=== PATIENT | male | born 1950 | race Caucasian/White ===

== ENCOUNTER 2018-07-18 10:52 | Outpatient (CLI) | payer MEDICARE, SELFPAY ==
[2018-07-18 13:11] LABS: Calculated LDL 95; Cholesterol 155 mg/dL (50-200); HDL Cholesterol 30 mg/dL (40-60); Triglyceride 154 mg/dL (30-150)
== END 2018-07-18 11:12 ==
PROVIDERS: PCP Emergency Medicine; Visit Provider Emergency Medicine
DX: I10 Essential (primary) hypertension (principal)
CPT/HCPCS: 36415; 80061; 83721

== ENCOUNTER 2018-09-08 00:18 | Outpatient (CLI) | payer MEDICARE, SELFPAY ==
--- NOTE | 2018-09-08 07:13 | MERGEMPI_ITS ---
*[facility]* *[facility]* [address] [place] [address] Myocardial Perfusion Imaging - SPECT Regadenoson Date of study: 09/08/2018 *PATIENT PRESENTATION* Height: 177.8cm (70in) Blood Pressure: Weight: 134.1kg (295lb) BSA: 2.64m^2 Referring physician: Rubia Soto MD Ordering physician: Reji Marrero Impressions: - Abnormal study after pharmacologic stress. - Abnormal contraction consistent with cardiomyopathy. Summary: 1. Myocardial perfusion imaging: There is a small sized, severely intense, fixed defect involving the basal inferior wall(s). . There is a small sized, severely intense, fixed defect involving the apical wall(s). . Overall ischemia: minimal. 2. The calculated left ventricular ejection fraction after stress: 41%. Diffuse left ventricular regional motion abnormalities. Indication: I25.10. History: REASON FOR VISIT: PRESURGICAL SCREENING FOR EXPLORATORY KIDNEY SURGERY WITH DR RUBIA FERREIRA AT [facility] [place] [facility] [place]. PT DENIES ANY ISSUES OF CHEST PAIN OR CHEST PRESSURE. PT'S PCP IS DR. MARRERO. 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 Risk factors: ACTIVE SMOKER. 2 PACKS/DAY FOR APPROXIMATELY 40 YEARS. Current tobacco use. Hypertension. Diabetes mellitus. Obesity. Dyslipidemia. Cholesterol: 155mg/dl. HDL: 30mg/dl. LDL: 95mg/dl. Triglycerides: 154mg/dl. Peripheral vascular disease. ALLERGIES: NO KNOWN ALLERGIES. MEDICATIONS: METOPROLOL TARTRATE 50 MG BID. PRAVASTATIN 80 MG DAILY. METFORMIN 1,000 MG BID. LISINOPRIL 20 MG DAILY. ASPIRN 81 MG DAILY. COENZYME Q10-RED YEAST RICE 60 MG-600 MG CAP DAILY. GLIPIZIDE 5 MG DAILY. MAGNESIUM OXIDE DAILY. Imaging Technique: Protocol: Regadenoson. Acquisition: Gated SPECT; 1 day - rest/stress. The patient was imaged in the supine position. Attenuation correction used. Isotope administration: - Rest. Tc[99m]-sestamibi. Dose: 15.1mCi. Injection time: 08:15 AM. Injection to stress time: 00:45. - Stress. Tc[99m]-sestamibi. Dose: 46mCi. Injection time: 10:50 AM. 1-2 min before end of exercise Baseline ECG: SINUS RHYTHM. HR 63 BPM. Stress protocol: +--------+--+ + + !Stage !HR!BP (mmHg) !Comments ! +--------+--+ + + !Baseline!63!156/80 (105)! ! +--------+--+ + + !1 min !--! !Inject Regadenoson.! +--------+--+ + + * Stress results: The rate-pressure product for the peak heart rate and blood pressure was 9828mm Hg/min. Stress ECG: STRESS TEST ENDED IN 6 MINUTS & 18 SECONDS. PT HAD NO SIGNIFICANT SIDE EFFECTS FROM LEXISCAN INJECTION. NORMAL HEART RATE AND BLOOD PRESSURE RESPONSE TO EXERCISE. OCCASIONAL PVCs NO ANGINA. SLIGHT ST SEGMENTS CHANGES. T WAVE INVERTIONS NOTED IN V4, V5 & V6 NOTED AT 1 MINUTE 49 SECONDS POST LEXISCAN. Myocardial perfusion: Imaging information: gated. There is a small sized, severely intense, fixed defect involving the basal inferior wall(s). . There is a small sized, severely intense, fixed defect involving the apical wall(s). . Overall ischemia: minimal. Ventricular Function (Wall Motion): The calculated left ventricular ejection fraction after stress: 41%. Diffuse left ventricular regional motion abnormalities. Study data: Rubia Soto MD supervised and was readily available during the procedure. This study was interpreted by [facility]. Study status: Routine. Consent: The risks, benefits, and alternatives to the procedure were explained to the patient and informed consent was obtained. Procedure: Initial setup. A baseline ECG was recorded. Surface ECG leads and manual cuff blood pressure measurements were monitored. Heart sounds: Normal. Lung sounds: Normal. Regadenoson stress test. Stress testing was performed, with regadenoson by intravenous bolus, for a total dose of 0.4mgover 10.00sec, followed by a 5ml saline flush. The infusion was terminated due to per protocol. The patient was unable to exercise due to leg, joint, or back pain. Study completion: All catheters inserted during the procedure were removed. The patient tolerated the procedure well and was discharged from the lab. Discharge: The patient left the laboratory in stable condition. Birthdate: Patient birthdate: 1950. Sex: Gender: male. Study date: Study date: 09/08/2018. Study time: 00:01 AM. Electronically signed by Rubia Soto MD 09/08/2018 14:49
[2018-09-08] MEDS: Regadenoson 0.4 MG/5 ML SYR IVP (10:26)
== END 2018-09-08 00:38 ==
PROVIDERS: PCP Emergency Medicine; Visit Provider Emergency Medicine
DX: I25.10 Atherosclerotic heart disease of native coronary artery without angina pectoris (principal); R94.30 Abnormal result of cardiovascular function study, unspecified; I10 Essential (primary) hypertension; I42.9 Cardiomyopathy, unspecified; E78.5 Hyperlipidemia, unspecified; E11.9 Type 2 diabetes mellitus without complications; F17.200 Nicotine dependence, unspecified, uncomplicated; Z01.818 Encounter for other preprocedural examination
CPT/HCPCS: 78452; 93016; 93018; 93017; J2785

== ENCOUNTER 2018-09-23 09:22 | Outpatient (REF) | payer MEDICARE, SELFPAY | END 2018-09-23 09:42 | LOC: LBN 09:22 | PROVIDERS: PCP Emergency Medicine; Visit Provider Urology | DX: N20.0 Calculus of kidney (principal) | CPT/HCPCS: 87086 ==

== ENCOUNTER 2019-07-27 02:15 | Outpatient (CLI) | payer MEDICARE, SELFPAY ==
[2019-07-27 09:25] LABS: Abs Immature Grans 0.03 k/cumm (0.0-0.09); Absolute Basophil Count 0.03 k/cumm (0.0-0.2); Absolute Lymphocyte Count 2.31 k/cumm (1.2-3.4); Absolute Monocyte Count 0.82 k/cumm (0.11-0.7); Absolute Neutrophil Count 6.88 k/cumm (1.2-6.7); Basophils % 0.3; Eosinophils % 2.9; HCT 44.4 % (40.0-50.0); HGB 15.1 g/dL (13.5-17.5); Immature Grans % 0.3 %; Lymphocytes % 22.3; Mean Corpuscular Hemoglobin 32.1 pg (27.0-33.0); Mean Corpuscular Volume 94.3 fL (80-95); Mean Platelet Volume 9.3 fL (8.0-11.0); Monocytes % 7.9; Neutrophils % 66.3; Platelet Count 264 x1000/uL (130-400); RBC 4.71 m/cumm (4.50-6.00); RBC Distribution Width 14.3 % (11.8-14.1); White Blood Cell Count 10.37 k/cumm (4.4-10.8)
[2019-07-27 09:28] LABS: Hemoglobin A1C 6.6 % (3.8-5.6)
[2019-07-27 09:54] LABS: Anion Gap 10.7 mmol/L (3-11); BUN 17 mg/dL (7-18); CO2 25.3 mmol/L (21.0-32.0); CREATININE 1.06 mg/dL (0.70-1.30); Calcium 9.4 mg/dL (8.5-10.1); Chloride 103 mmol/L (98-107); Glucose 130 mg/dL (74-106); Potassium 4.5 mmol/L (3.5-5.1); Sodium 139 mmol/L (136-145)
== END 2019-07-27 02:35 ==
PROVIDERS: PCP Emergency Medicine; Visit Provider Emergency Medicine
DX: I10 Essential (primary) hypertension (principal); E11.9 Type 2 diabetes mellitus without complications; R60.0 Localized edema; L97.529 Non-pressure chronic ulcer of other part of left foot with unspecified severity
CPT/HCPCS: 36415; 80048; 99201; 83036; 85025

== ENCOUNTER → 2019-08-03 09:55 | Outpatient (BNVA) | payer MEDICARE, SELFPAY | PROVIDERS: PCP Emergency Medicine; Referring Provider Emergency Medicine; Visit Provider Surgery | DX: Z51.89 Encounter for other specified aftercare (principal); L97.529 Non-pressure chronic ulcer of other part of left foot with unspecified severity; F17.210 Nicotine dependence, cigarettes, uncomplicated | CPT/HCPCS: 99212 ==

== ENCOUNTER 2019-10-07 14:46 | Outpatient (REF) | payer MEDICARE, SELFPAY ==
[2019-10-07 21:49] LABS: Bilirubin Negative (Negative); Blood Large (Negative); Glucose Negative (Negative); Ketones Trace mg/dL (Negative); Leukocyte Esterase Negative (Negative); Nitrite Negative (Negative); Specific Gravity >= 1.030 (1.005-1.025); Urobilinogen 0.2 EU/dL (Up TO 0.2); pH 5.5 (5-8)
[2019-10-07 21:53] LABS: Clarity Sl Cloudy (Clear)
[2019-10-07 21:56] LABS: C & S Indicated? Yes; RBC >50 HPF (0-2)
== END 2019-10-07 15:06 ==
LOC: LBN 14:46
PROVIDERS: PCP Emergency Medicine; Visit Provider Emergency Medicine
DX: R31.9 Hematuria, unspecified (principal)
CPT/HCPCS: 81003; 81015; 87086

== ENCOUNTER 2019-10-08 02:28 | Outpatient (CLI) | payer MEDICARE, SELFPAY ==
--- NOTE | 2019-10-08 07:00 | DI.CT_ITS ---
EXAM: CT ABDOMEN PELVIS WO/W CLINICAL HISTORY: kidney stone, n20.0 TECHNIQUE: COMPARISON: No exams were available for comparison FINDINGS: CT examination of the abdomen and pelvis was performed utilizing CT urogram protocol. Images obtaine d through the lung bases are unremarkable. Note is made of prior left SI joint fixation with metalli c fixation screw in place. There is fixation apparatus also present pubic symphysis fixating pelvic fracture. There are severe degenerative changes of lumbar spine. Visualized portions of the liver and spleen are unremarkable. Pancreas appears normal. There is cho lelithiasis. There is no biliary dilatation. The appendix appears to have been previously removed. No evidence of bowel obstruction or diverticulitis. Small fat containing umbilical hernia noted. Apparent soft tissue edema or scarring in left inguinal region, please correlate with prior procedures. Abdominal aorta has a heavily calcified wall. 32 millimeter in diameter infrarenal abdominal aortic aneurysm noted. 32 millimeter in diameter left common iliac artery aneurysm. [address] right common iliac artery. There is no significant abdominal or pelvic adenopathy. Left adrenal appears normal. There is a right adrenal mass measuring 45 millimeters in diameter. Th is mass is of approximately -10 Hounsfield units average attenuation on precontrast examination, cons istent with benign adrenal adenoma. There are multiple bilateral nonobstructing renal calculi. There is a calculus in the proximal left ureter measuring 20 x 14 millimeters in diameter with a resultant high-grade ureteral obstruction wit h severe left hydronephrosis. No additional ureteral calcification seen. Urinary bladder grossly unremarkable. IMPRESSION: Multiple bilateral nonobstructing renal calculi. Obstructing 20 x 14 millimeter in diameter left UPJ/proximal ureteral stone with severe left hydronep hrosis. Right adrenal mass with attenuation measurements consistent with benign adrenal adenoma. 32 millimeter in diameter abdominal aortic aneurysm, 32 millimeter in diameter left common iliac kishan ry aneurysm, 28 millimeter in diameter right common iliac artery aneurysm. RADIATION DOSE DELIVERED: 4,333.69mGy.cm Total DLP
[2019-10-08 10:31] LABS: CREATININE 0.96 mg/dL (0.70-1.30)
[2019-10-08] MEDS: Omnipaque 350 MG/ML 100 ML BTL IJ (11:12)
== END 2019-10-08 02:48 ==
PROVIDERS: PCP Emergency Medicine; Visit Provider Emergency Medicine
DX: N13.2 Hydronephrosis with renal and ureteral calculous obstruction (principal); I71.4 Abdominal aortic aneurysm, without rupture; E27.8 Other specified disorders of adrenal gland
CPT/HCPCS: 74178; 82565; J3490

== ENCOUNTER 2019-11-09 12:48 | Outpatient (REF) | payer MEDICARE, SELFPAY ==
[2019-11-09 13:42] LABS: Abs Immature Grans 0.03 10^3/uL (0.0-0.06); Absolute Basophil Count 0.05 10^3/uL (0.0-0.2); Absolute Eosinophil Count 0.27 10^3/uL (0.0-0.7); Absolute Lymphocyte Count 1.74 10^3/uL (1.2-3.4); Absolute Monocyte Count 0.58 10^3/uL (0.1-0.8); Absolute Neutrophil Count 6.56 10^3/uL (1.2-6.7); Basophils % 0.5; Eosinophils % 2.9; HCT 33.1 % (40.0-50.0); HGB 10.9 g/dL (13.5-17.5); Immature Grans % 0.3; Lymphocytes % 18.9; MCH 30.8 pg (27.0-33.0); MCHC 32.9 % (32.0-36.0); MCV 93.5 fL (80-95); MPV 9.4 fL (8.0-11.0); Monocytes % 6.3; Neutrophils % 71.1; Nucleated RBC 0 %; Platelet Count 291 10^3/uL (130-400); RBC 3.54 10^6/uL (4.36-5.78); RDW 14.6 % (11.8-14.1); RDW-SD 50.1 fL; WBC 9.23 10^3/uL (4.4-10.8)
[2019-11-09 13:51] LABS: ALT 34 U/L (16-63); AST 22 U/L (15-37); Albumin 2.9 g/dL (3.4-5.0); Alkaline Phosphatase 67 U/L (46-116); Anion Gap 8.6 mmol/L (3-11); BUN 14 mg/dL (7-18); Bilirubin, Total 0.4 mg/dL (0.2-1.0); CO2 25.4 mmol/L (21.0-32.0); CREATININE 0.95 mg/dL (0.70-1.30); Calcium 8.6 mg/dL (8.5-10.1); Chloride 106 mmol/L (98-107); Glucose 167 mg/dL (74-106); Potassium 3.9 mmol/L (3.5-5.1); Sodium 140 mmol/L (136-145)
[2019-11-10 18:48] LABS: C-Reactive Protein 0.86 mg/dL (0.0-0.3)
== END 2019-11-09 13:08 ==
LOC: LBN 12:48
PROVIDERS: Internal Medicine Infectious Disease; PCP Emergency Medicine; Visit Provider Emergency Medicine
DX: M86.172 Other acute osteomyelitis, left ankle and foot (principal); A49.01 Methicillin susceptible Staphylococcus aureus infection, unspecified site; B95.2 Enterococcus as the cause of diseases classified elsewhere; A49.8 Other bacterial infections of unspecified site; R79.82 Elevated C-reactive protein (CRP)
CPT/HCPCS: 80053; 85025; 86140

== ENCOUNTER 2019-11-12 10:45 | Outpatient (REF) | payer MEDICARE, SELFPAY ==
[2019-11-12 13:22] LABS: Vancomycin, Trough 12.6 ug/mL (10.0-20.0)
== END 2019-11-12 11:05 ==
LOC: LBN 10:45
PROVIDERS: PCP Emergency Medicine; Visit Provider Emergency Medicine
DX: Z79.2 Long term (current) use of antibiotics (principal); M86.172 Other acute osteomyelitis, left ankle and foot
CPT/HCPCS: 80202

== ENCOUNTER 2019-11-16 12:56 | Outpatient (REF) | payer MEDICARE, SELFPAY ==
[2019-11-16 13:26] LABS: Abs Immature Grans 0.04 10^3/uL (0.0-0.06); Absolute Basophil Count 0.05 10^3/uL (0.0-0.2); Absolute Eosinophil Count 0.25 10^3/uL (0.0-0.7); Absolute Lymphocyte Count 1.67 10^3/uL (1.2-3.4); Absolute Monocyte Count 0.74 10^3/uL (0.1-0.8); Absolute Neutrophil Count 7.55 10^3/uL (1.2-6.7); Basophils % 0.5; Eosinophils % 2.4; HCT 35.9 % (40.0-50.0); HGB 11.8 g/dL (13.5-17.5); Immature Grans % 0.4; Lymphocytes % 16.2; MCH 30.3 pg (27.0-33.0); MCHC 32.9 % (32.0-36.0); MCV 92.3 fL (80-95); MPV 9.4 fL (8.0-11.0); Monocytes % 7.2; Neutrophils % 73.3; Nucleated RBC 0 %; Platelet Count 328 10^3/uL (130-400); RBC 3.89 10^6/uL (4.36-5.78); RDW 15.2 % (11.8-14.1); RDW-SD 50.9 fL
[2019-11-16 13:38] LABS: ALT 29 U/L (16-63); AST 16 U/L (15-37); Albumin 3.2 g/dL (3.4-5.0); Alkaline Phosphatase 63 U/L (46-116); Anion Gap 10.2 mmol/L (3-11); BUN 12 mg/dL (7-18); Bilirubin, Total 0.6 mg/dL (0.2-1.0); C-Reactive Protein 0.34 mg/dL (0.0-0.3); CO2 24.8 mmol/L (21.0-32.0); CREATININE 0.81 mg/dL (0.70-1.30); Calcium 8.9 mg/dL (8.5-10.1); Chloride 107 mmol/L (98-107); Glucose 70 mg/dL (74-106); Potassium 3.9 mmol/L (3.5-5.1); Sodium 142 mmol/L (136-145); Total Protein 6.4 g/dL (6.4-8.2)
[2019-11-16 13:56] LABS: Vancomycin, Trough 13.3 ug/mL (10.0-20.0)
== END 2019-11-16 13:16 ==
LOC: LBN 12:56
PROVIDERS: PCP Emergency Medicine; Visit Provider Student in an Organized Health Care Education/Training Program
DX: M86.172 Other acute osteomyelitis, left ankle and foot (principal); Z79.2 Long term (current) use of antibiotics
CPT/HCPCS: 80053; 80202; 85025; 86140

== ENCOUNTER 2019-11-23 12:42 | Outpatient (REF) | payer MEDICARE, SELFPAY ==
[2019-11-23 13:25] LABS: Abs Immature Grans 0.03 10^3/uL (0.0-0.06); Absolute Basophil Count 0.08 10^3/uL (0.0-0.2); Absolute Eosinophil Count 0.19 10^3/uL (0.0-0.7); Absolute Lymphocyte Count 1.57 10^3/uL (1.2-3.4); Absolute Monocyte Count 0.71 10^3/uL (0.1-0.8); Basophils % 0.7; Eosinophils % 1.8; HCT 34.8 % (40.0-50.0); HGB 11.4 g/dL (13.5-17.5); Immature Grans % 0.3; Lymphocytes % 14.7; MCH 30.2 pg (27.0-33.0); MCHC 32.8 % (32.0-36.0); MCV 92.1 fL (80-95); MPV 9.7 fL (8.0-11.0); Monocytes % 6.6; Neutrophils % 75.9; Nucleated RBC 0 %; Platelet Count 310 10^3/uL (130-400); RBC 3.78 10^6/uL (4.36-5.78); RDW 15.6 % (11.8-14.1); RDW-SD 52.3 fL; WBC 10.68 10^3/uL (4.4-10.8)
[2019-11-23 13:51] LABS: ALT 31 U/L (16-63); AST 13 U/L (15-37); Albumin 3.3 g/dL (3.4-5.0); Alkaline Phosphatase 67 U/L (46-116); Anion Gap 11.4 mmol/L (3-11); BUN 12 mg/dL (7-18); Bilirubin, Total 0.8 mg/dL (0.2-1.0); CO2 24.6 mmol/L (21.0-32.0); CREATININE 0.82 mg/dL (0.70-1.30); Calcium 8.7 mg/dL (8.5-10.1); Chloride 107 mmol/L (98-107); Glucose 87 mg/dL (74-106); Sodium 143 mmol/L (136-145); Total Protein 6.4 g/dL (6.4-8.2); Vancomycin, Trough 13.3 ug/mL (10.0-20.0)
[2019-11-23 13:59] LABS: C-Reactive Protein 0.76 mg/dL (0.0-0.3)
== END 2019-11-23 13:02 ==
LOC: LBN 12:42
PROVIDERS: PCP Emergency Medicine; Visit Provider Emergency Medicine
DX: M86.172 Other acute osteomyelitis, left ankle and foot (principal); Z79.2 Long term (current) use of antibiotics
CPT/HCPCS: 80053; 80202; 85025; 86140

== ENCOUNTER 2019-11-30 10:03 | Outpatient (REF) | payer MEDICARE, SELFPAY ==
[2019-11-30 13:01] LABS: Abs Immature Grans 0.03 10^3/uL (0.0-0.06); Absolute Basophil Count 0.05 10^3/uL (0.0-0.2); Absolute Eosinophil Count 0.19 10^3/uL (0.0-0.7); Absolute Lymphocyte Count 1.02 10^3/uL (1.2-3.4); Absolute Monocyte Count 0.71 10^3/uL (0.1-0.8); Absolute Neutrophil Count 8.14 10^3/uL (1.2-6.7); Basophils % 0.5; Eosinophils % 1.9; HCT 34.5 % (40.0-50.0); HGB 11.1 g/dL (13.5-17.5); Immature Grans % 0.3; Lymphocytes % 10.1; MCH 30.2 pg (27.0-33.0); MCHC 32.2 % (32.0-36.0); MPV 9.9 fL (8.0-11.0); Neutrophils % 80.2; Nucleated RBC 0 %; Platelet Count 290 10^3/uL (130-400); RBC 3.67 10^6/uL (4.36-5.78); RDW 15.5 % (11.8-14.1); WBC 10.14 10^3/uL (4.4-10.8)
[2019-11-30 13:52] LABS: ALT 31 U/L (16-63); AST 17 U/L (15-37); Albumin 3.2 g/dL (3.4-5.0); Alkaline Phosphatase 66 U/L (46-116); Anion Gap 7.9 mmol/L (3-11); BUN 14 mg/dL (7-18); Bilirubin, Total 0.9 mg/dL (0.2-1.0); CO2 26.1 mmol/L (21.0-32.0); CREATININE 0.83 mg/dL (0.70-1.30); Calcium 9.1 mg/dL (8.5-10.1); Chloride 106 mmol/L (98-107); Glucose 90 mg/dL (74-106); Potassium 3.5 mmol/L (3.5-5.1); Sodium 140 mmol/L (136-145); Total Protein 6.4 g/dL (6.4-8.2)
[2019-11-30 14:06] LABS: Vancomycin, Trough 15.5 ug/mL (10.0-20.0)
== END 2019-11-30 10:23 ==
LOC: LBN 10:03
PROVIDERS: PCP Emergency Medicine; Visit Provider Emergency Medicine
DX: M86.172 Other acute osteomyelitis, left ankle and foot (principal); Z79.2 Long term (current) use of antibiotics; Z51.81 Encounter for therapeutic drug level monitoring
CPT/HCPCS: 80053; 80202; 85025; 86140

== ENCOUNTER 2019-12-02 14:29 | Emergency (ER) | payer MEDICARE, SELFPAY ==
--- NOTE | 2019-12-02 14:30 | RT.EKG_ITS ---
APPROVED REPORT Exam: Resting ECG Patient Location: E HR:69 bpm ECG Measurements Heart Rate 69 AXIS IL 181 P 40 QRSd 113 QRS 56 QT 416 T 213 QTc 445 Conclusion Sinus rhythm...normal P axis, V-rate 60- 99 Nonspecific repol abnormality, diffuse leads...ST dep, T flat/neg, ant/lat/inf
[2019-12-02 14:43] VITALS: TEMP 36.7
--- NOTE | 2019-12-02 14:45 | DI.CT_ITS ---
EXAM: CT CHEST PE CTA CLINICAL HISTORY: SOB, Recent Surgery. TECHNIQUE: Imaging Protocol: Axial CT angiography was performed with multi-slice acquisition and mu lti-planar and/or 3D reconstructions. CONTRAST MATERIAL: Intravenous: Omnipaque 350 Contrast volume:88 cc COMPARISON: CT CT ABDOMEN PELVIS WO/W from 10/08/2019 FINDINGS: Pulmonary Arteries: No evidence of filling defect to suggest pulmonary emboli. Tracheobronchial tree: Patent where visualized. Mediastinum and Dayan: No dominant adenopathy or fluid collection. Pulmonary parenchyma: No consolidation or dominant measurable mass. Expiratory changes. Mild edema i n the lung bases. Pleura: Small bilateral pleural effusions and mild adjacent basilar atelectasis. no pneumothorax. Heart: Dilated left atrium and left ventricle. Moderate coronary artery calcifications are seen. Tra ce pericardial effusion Aorta: Thoracic aorta non-dilated. Mild atherosclerotic changes. Upper abdomen: Stable right adrenal adenoma. Left renal cysts. Bones: Normal. Tubes, Catheters, and Lines: PICC line. The tip appears to be in the SVC on the vertical punch operator image. IMPRESSION: No evidence of pulmonary embolism. Bilateral pleural effusions, mild adjacent atelectasis. Mild basi lar pulmonary edema. RADIATION DOSE DELIVERED: 666.76mGy.cm Total DLP DATA REPOSITORY: All CT scans at this facility are submitted to the National Radiology Data Registry (NRDR) Dose Index Registry (DIR) with the [employer] (ACR). RADIATION OPTIMIZATION: All CT scans at this facility use at least one of these dose optimization te chniques: automated exposure control; mA and/or kV adjustment per patient size (includes targeted exa ms where dose is matched to clinical indication); or iterative reconstruction.
--- NOTE | 2019-12-02 14:58 | W.ED.GENAD ---
Discharge Plan Disposition Patient Disposition: HOME Condition: Improving Discharge Details Clinical Impression: Congestive heart failure Primary Care Provider: Reji Marrero ED Provider: Kim Garvey Home Meds and New Rx's Prescriptions: New furosemide [Lasix] 20 mg tablet 20 mg PO DAILY Qty: 5 RF: 0 potassium chloride 20 mEq tablet extended release 20 meq PO DAILY Qty: 5 RF: 0 Continued Complex B-100 Tablet Extended Release 1 tab PO DAILY RF: 0 Ultra CoQ10 75 mg capsule 75 mg PO DAILY RF: 0 aspirin [Adult Aspirin Regimen] 81 mg tablet,delayed release (DR/EC) 81 mg PO DAILY Qty: 90 RF: 3 glipizide [Glucotrol XL] 5 mg tablet extended release 24hr 5 mg PO DAILY Qty: 90 RF: 4 Hold Instructions: due to low FBS's metformin [Glucophage] 1,000 mg tablet 1,000 mg PO BID Qty: 180 RF: 4 metoprolol tartrate 50 mg tablet 50 mg PO BID Qty: 180 RF: 4 Myrbetriq 50 mg tablet extended release 24 hr 50 mg PO DAILY Qty: 90 RF: 3 (DME) blood sugar diagnostic Strip 1 ea Miscellaneous DAILY Qty: 90 RF: 3 Eliquis 5 mg tablet 5 mg PO BID Qty: 180 RF: 3 atorvastatin 80 mg tablet 80 mg PO QHS Qty: 90 RF: 3 lisinopril 40 mg tablet 40 mg PO DAILY Qty: 90 RF: 4 piperacillin-tazobactam 40.5 gram recon soln 40.5 g IV TID RF: 0 vancomycin 10 gram recon soln 10 g IV BID RF: 0 Discharge Instructions Instructions: Pulmonary Edema (ED) Additional Instructions: take lasix and potassium daily as directed return sooner for new or worsening symptoms follow up with Dr Marrero for further outpatient testing Referrals: Reji Marrero, DO [Primary Care Provider] - (call in am for appointment) Discharge Data Discharge Date/Time-TO BE ENTERED AT DEPARTURE: 12/02/19 17:00 Medical Decision Making <Seda Wilson - Last Filed: 12/03/19 08:09> 69-year-old male presents to the ED with chief complaint of shortness of breath. He reports that he had an episode of increased shortness of breath on Saturday which has what he reports has since resolved. Patient recently had a femoral bypass graft and toe amputation. He does have a PICC line noted to his right upper extremity which is infusing piperacillin. Patient is also on vancomycin status post surgery. She was sent here to rule out pulmonary embolism by Dr. Singh. He does have a history of obstructive sleep apnea, obesity, diabetes, AAA without rupture, he is a daily smoker. He denies fever, cough or any other symptoms denies any chest pain. At this time cardiac work-up ordered, chest CT PE protocol ordered to rule out pulmonary embolus. Verified with radiology that they can use the PICC line. Care is to be handed off to oncoming provider Kim Garvey [employer] case and details discussed with her she verbalizes understanding. Discussed elevated BNP level and pending CT chest rule out PE. At the time this dictation patient was hemodynamically stable. This text was generated using [employer] system, please disregard any oddities of phrase or misspellings. <Kim Garvey [employer] - Last Filed: 12/02/19 22:30> patient signed out by Marvin Harrison APRN , awaiting CT for PE and labs. patient referred by pcp to r/o PE. review of labs show BNP 3000, no previous value for comparison, echo from 2019 reviewed with no evidence of LV dysfunction. troponin negative with no c/o chest pain. given 40 mg of po lasix and 40 meq po potassium while in ED. will be sent home with 5 day prescription for 20 mg lasix and 20 meq potassium. will defer further work up and testing to pcp including echo at patient request. he requests to leave department prior to CT results. I will call him if positive for PE, otherwise will get results from PCP. CT shows 1. bilateral small to moderate pleural effusions and adjacent atelectasis 2. 3 mm nodule in the anterior segment of the right upper lobe (4/4) 3. Patchy infiltrate in the right base for patient at low risk no routine follow-up indicated for patients at high risk consider optional CT chest at 12 months 4. Right PICC line catheter ends in the right subclavian vein Medical Records Medical records reviewed: Yes I reviewed the patient's medical records. Medical records narrative: TTE from 09/2018 shows EF 59%, with probable normal LV function MPI shows 2 fixed perfusion defects likely representing scar in LV apex and basal inferior wall, with LVEF 40% Lab Data Lab results reviewed: Yes I reviewed the patient's lab results. Lab results narrative: Laboratory Results - last 24 hr 12/02/19 12/02/19 12/02/19 15:15 15:15 15:15 WBC 10.21 RBC 3.68 L Hgb 11.0 L Hct 34.6 L MCV 94.0 MCH 29.9 MCHC 31.8 L RDW 15.3 H Plt Count 278 MPV 9.1 Immature Gran % 0.2 Neutrophils % 71.3 Lymphocytes % 16.3 Monocytes % 9.1 Eosinophils % 2.4 Basophils % 0.7 Nucleated RBC % 0 Absolute Neutrophils 7.29 H Absolute Lymphocytes 1.66 Absolute Monocytes 0.93 H Absolute Eosinophils 0.24 Absolute Basophils 0.07 Sodium 141 Potassium 3.6 Chloride 107 Carbon Dioxide 27.9 Anion Gap 6.1 BUN 17 Creatinine 0.91 Estimated GFR/1.73 m2 >= 60.00 Glucose 91 Calcium 9.0 Magnesium 2.0 Total Bilirubin 0.8 AST 17 ALT 33 Alkaline Phosphatase 74 Troponin I 0.06 NT-Pro-B Natriuret Pep 3154 H Total Protein 6.7 Albumin 3.2 L 12/02/19 17:57 WBC RBC Hgb Hct MCV MCH MCHC RDW Plt Count MPV Immature Gran % Neutrophils % Lymphocytes % Monocytes % Eosinophils % Basophils % Nucleated RBC % Absolute Neutrophils Absolute Lymphocytes Absolute Monocytes Absolute Eosinophils Absolute Basophils Sodium Potassium Chloride Carbon Dioxide Anion Gap BUN Creatinine Estimated GFR/1.73 m2 Glucose Calcium Magnesium Total Bilirubin AST ALT Alkaline Phosphatase Troponin I Cancelled NT-Pro-B Natriuret Pep Total Protein Albumin <CODIE Vo - Last Filed: 12/04/19 16:13> Name was entered in error, I was not working on this day nor did I partake in their care. HPI <Seda Wilson - Last Filed: 12/03/19 08:09> General Mode of arrival: wheelchair. Date/Time Provider Initiated Documentation: 12/02/19 14:32. Limitations to Documentation: no limitations. Information obtained by: patient. HPI Narrative: 69-year-old male presents to the ED with chief complaint of shortness of breath. He reports that he had an episode of increased shortness of breath on Saturday which has what he reports has since resolved. Patient recently had a femoral bypass graft and toe amputation. He does have a PICC line noted to his right upper extremity which is infusing piperacillin. Patient is also on vancomycin status post surgery. She was sent here to rule out pulmonary embolism by Dr. Singh. He does have a history of obstructive sleep apnea, obesity, diabetes, AAA without rupture, he is a daily smoker. He denies fever, cough or any other symptoms denies any chest pain. Related Data Home Medications Medication Instructions Recorded Confirmed vitamin B complex 1 tab PO DAILY 09/02/18 12/02/19 aspirin 81 mg tablet,delayed 81 mg PO DAILY #90 tab 10/21/18 12/02/19 release glipizide 5 mg tablet, extended 5 mg PO DAILY #90 tab-cap 02/12/19 12/02/19 release 24 hr metformin 1,000 mg tablet 1,000 mg PO BID #180 tab-cap 02/12/19 12/02/19 metoprolol tartrate 50 mg tablet 50 mg PO BID #180 tab-cap 02/12/19 12/02/19 mirabegron 50 mg tablet,extended 50 mg PO DAILY #90 tab 06/17/19 12/02/19 release 24 hr blood sugar diagnostic #90 strip 08/28/19 10/20/19 apixaban 5 mg tablet 5 mg PO BID #180 tab 10/06/19 12/02/19 atorvastatin 80 mg tablet 80 mg PO QHS #90 tab 10/07/19 12/02/19 coenzyme Q10 75 mg capsule 75 mg PO DAILY 10/07/19 12/02/19 lisinopril 40 mg tablet 40 mg PO DAILY #90 tab-cap 11/25/19 12/02/19 furosemide [Lasix] 20 mg PO DAILY #5 tab 12/02/19 piperacillin-tazobactam 40.5 g IV TID 12/02/19 12/02/19 potassium chloride 20 meq PO DAILY #5 tab 12/02/19 vancomycin 10 g IV BID 12/02/19 12/02/19 Previous Rx's Medication Instructions Recorded aspirin 81 mg tablet,delayed 81 mg PO DAILY #90 tab 10/21/18 release glipizide 5 mg tablet, extended 5 mg PO DAILY #90 tab-cap 02/12/19 release 24 hr metformin 1,000 mg tablet 1,000 mg PO BID #180 tab-cap 02/12/19 metoprolol tartrate 50 mg tablet 50 mg PO BID #180 tab-cap 02/12/19 mirabegron 50 mg tablet,extended 50 mg PO DAILY #90 tab 06/17/19 release 24 hr blood sugar diagnostic #90 strip 08/28/19 apixaban 5 mg tablet 5 mg PO BID #180 tab 10/06/19 atorvastatin 80 mg tablet 80 mg PO QHS #90 tab 10/07/19 lisinopril 40 mg tablet 40 mg PO DAILY #90 tab-cap 11/25/19 furosemide [Lasix] 20 mg PO DAILY #5 tab 12/02/19 potassium chloride 20 meq PO DAILY #5 tab 12/02/19 Allergies Allergy/AdvReac Type Severity Reaction Status Date / Time No Known Allergies Allergy Verified 12/02/19 14:52 General Stated Complaint: SOB KENNEDI: 3 Review of Systems <Seda Wilson - Last Filed: 12/03/19 08:09> Narrative: Constitutional: Negative for weight loss, alert and oriented, well groomed, obese body habitus, appears comfortable. Has a PICC line in place to his right upper inner forearm. HEENT: Denies trauma, headaches, blurry vision, nasal discharge, sore throat, trouble swallowing. Chest: Denies chest pain, palpitations, irregular rhythm, hypertension. Respiratory: Denies cough, hemoptysis. Positive shortness of breath worse on Saturday since resolved. GI: Denies abdominal pain, nausea, vomiting, diarrhea, constipation. : Denies dysuria, hematuria, flank pain, rectal bleeding. Neuro: Denies dizziness, blurry vision, weakness, syncope, headache or facial numbness. Hematologic: Denies easy bruising, intolerance to heat or cold, hair loss. [facility] <Seda Wilson - Last Filed: 12/03/19 08:09> Medical History Calculus of kidney Foot ulcer Foot ulcer, left Peripheral vascular disease Pre-op evaluation Surgical History EGD - MAC (10/28/13) Hx of endarterectomy Left iliofemoral with bypass. August 2019 [facility] Social History Smoking/Tobacco Use Status: Current every day Alcohol Intake: former Drug use: Daily Substance use type: does not use, former substance user and marijuana Do you feel safe at home: Yes Exam <Seda Wilson - Last Filed: 12/03/19 08:09> Narrative Exam Narrative: Constitutional: Alert and oriented x3. Appears stated age. obese body habitus. Head: Normocephalic, no trauma. Eyes: Pupils PERRLA, Red reflex noted, EOM's intact. Eyelids symmetrical without lesions, discharge, or swelling. ENT: Bilateral TM's WNL, External ear normal to inspection, no mastoid TTP, swelling, or erythema, Nasal turbinates WNL, no nasal discharge. Normal dentition, Posterior pharynx WNL, no exudate. Chest: RRR, Normal S1, S2, distal pulses intact. Resp: Lungs clear to auscultation bilaterally, no wheezes, rales, or rhonchi. Musculoskeletal: Unable to assess gait, has a aria wrap and post of ortho shoe noted to Left lower extremity. Skin: No suspicious rashes or lesions. Capillary refill less than 2 sec. PICC line noted with antibiotic infusing to his right upper arm. Neurologic: Cranial nerves II-XII intact. Alert and oriented x 3. DTR's intact. Hematologic/Lymphatic: No ecchymosis, no lymphadenopathy. Course <Seda Wilson - Last Filed: 12/03/19 08:09> Vital Signs Vital signs: Vital Signs Temperature 36.7 C 12/02/19 14:43 Temperature 36.7 C 12/02/19 14:43 Respiratory Effort Non-Labored 12/02/19 14:48 Pain Level 0 12/02/19 14:43 Sign Out <Seda Wilson - Last Filed: 12/03/19 08:09> Sign Out Data: Sign Out Comment: Pending CT chest and Disposition. Needs diuretic for BNP elevation. Last updated by Seda Wilson at 12/02/19 16:07
[2019-12-02 15:24] LABS: Abs Immature Grans 0.02 10^3/uL (0.0-0.06); Absolute Basophil Count 0.07 10^3/uL (0.0-0.2); Absolute Eosinophil Count 0.24 10^3/uL (0.0-0.7); Absolute Lymphocyte Count 1.66 10^3/uL (1.2-3.4); Absolute Monocyte Count 0.93 10^3/uL (0.1-0.8); Absolute Neutrophil Count 7.29 10^3/uL (1.2-6.7); Basophils % 0.7; Eosinophils % 2.4; HCT 34.6 % (40.0-50.0); Immature Grans % 0.2; Lymphocytes % 16.3; MCH 29.9 pg (27.0-33.0); MCHC 31.8 % (32.0-36.0); MPV 9.1 fL (8.0-11.0); Monocytes % 9.1; Neutrophils % 71.3; Nucleated RBC 0 %; Platelet Count 278 10^3/uL (130-400); RBC 3.68 10^6/uL (4.36-5.78); RDW 15.3 % (11.8-14.1); RDW-SD 52.9 fL; WBC 10.21 10^3/uL (4.4-10.8)
[2019-12-02 15:40] VITALS: RESP 16
[2019-12-02 15:41] LABS: ALT 33 U/L (16-63); AST 17 U/L (15-37); Albumin 3.2 g/dL (3.4-5.0); Alkaline Phosphatase 74 U/L (46-116); Anion Gap 6.1 mmol/L (3-11); BUN 17 mg/dL (7-18); Bilirubin, Total 0.8 mg/dL (0.2-1.0); CO2 27.9 mmol/L (21.0-32.0); CREATININE 0.91 mg/dL (0.70-1.30); Chloride 107 mmol/L (98-107); Glucose 91 mg/dL (74-106); Potassium 3.6 mmol/L (3.5-5.1); Sodium 141 mmol/L (136-145); Total Protein 6.7 g/dL (6.4-8.2); Troponin I 0.06 ng/mL (<0.06)
[2019-12-02 15:44] LABS: NT-proBNP 3154 pg/mL (<300)
[2019-12-02] MEDS: Furosemide 40 MG TAB PO (16:47)
[2019-12-02] MEDS: Potassium Chloride 20 MEQ TABCR 40 MEQ PO (16:47)
--- NOTE | 2019-12-02 16:58 | DI.VRAD_ITS ---
PROCEDURE INFORMATION: Exam: CT Angiography Chest With Contrast Exam date and time: 12/02/2019 2:59 PM Age: 69 years old Clinical indication: Other: SOB, recent surgery TECHNIQUE: Imaging protocol: Computed tomographic angiography of the chest with intravenous contrast. 3D rendering (Not supervised by radiologist): MIP and/or 3D reconstructed images were created by the technologist. Contrast material: OMNIPAQUE 350; Contrast volume: 88 ml; Contrast route: INTRAVENOUS (IV); COMPARISON: CR CHEST 2 VIEWS PA,LAT 08/09/2017 12:25 PM FINDINGS: Tubes, catheters and devices: Right PICC line catheter ends in the right subclavian vein. Pulmonary arteries: Normal. No pulmonary emboli. Aorta: Aortic and coronary atherosclerosis. Lungs: 3 mm nodule in the anterior segment of the right upper lobe (4/4). Patchy infiltrate in the right base. Pleural space: Bilateral small to moderate pleural effusions and adjacent atelectasis. Heart: Unremarkable. No cardiomegaly. No pericardial effusion. Lymph nodes: Unremarkable. No enlarged lymph nodes. Adrenals: Right adrenal lipid rich adenoma measures 4 cm. Kidneys and ureters: Partially viewed left renal cyst measures 7.5 cm. Bones/joints: Degenerative changes in the spine. Soft tissues: Unremarkable. IMPRESSION: 1. Bilateral small to moderate pleural effusions and adjacent atelectasis. 2. 3 mm nodule in the anterior segment of the right upper lobe (4/4). 3. Patchy infiltrate in the right base.For patients at low risk (minimal or absent history of smoking and of other known risk factors), no routine follow-up is indicated. For patients at high risk (history of smoking or of other known risk factors), consider optional CT Chest at 12 months. (Reference: Leticia) 4. Right PICC line catheter ends in the right subclavian vein. REFERENCES: Leticia Rodriguez, et al. Guidelines for Management of Incidental Pulmonary Nodules Detected on CT Images: From the Fleischner Society 2017. Radiology. 2017;284(1):228-243. Dictated and Authenticated by: Delfino Qureshi MD. Ordering:CYRUS Stack MD
[2019-12-02] MEDS: Normal Saline Flush 10 ML SYR IVP ×2 (17:06→17:20)
[2019-12-02] MEDS: Omnipaque 350 MG/ML 100 ML BTL IJ (17:19)
[2019-12-02] MEDS: Normal Saline - Diluent 50 ML VIAL IV (17:20)
== END 2019-12-02 17:00 | disposition home or self-care (01) ==
PROVIDERS: Registered Nurse Emergency; Emergency Provider Nurse Practitioner Acute Care; PCP Emergency Medicine
DX: I11.0 Hypertensive heart disease with heart failure (principal); I50.9 Heart failure, unspecified; R91.1 Solitary pulmonary nodule; E11.9 Type 2 diabetes mellitus without complications; Z79.84 Long term (current) use of oral hypoglycemic drugs; F17.210 Nicotine dependence, cigarettes, uncomplicated; I73.9 Peripheral vascular disease, unspecified; Z95.828 Presence of other vascular implants and grafts
CPT/HCPCS: 36592; 71275; 80053; 93005; 99285; 83735; 83880; 84484; 85025; 93010; J3490

== ENCOUNTER 2019-12-07 18:31 | Outpatient (REF) | payer MEDICARE, SELFPAY ==
[2019-12-07 13:35] LABS: Abs Immature Grans 0.03 10^3/uL (0.0-0.06); Absolute Basophil Count 0.07 10^3/uL (0.0-0.2); Absolute Eosinophil Count 0.28 10^3/uL (0.0-0.7); Absolute Lymphocyte Count 1.92 10^3/uL (1.2-3.4); Absolute Monocyte Count 0.88 10^3/uL (0.1-0.8); Absolute Neutrophil Count 8.51 10^3/uL (1.2-6.7); Basophils % 0.6; Eosinophils % 2.4; HCT 36.3 % (40.0-50.0); HGB 11.4 g/dL (13.5-17.5); Immature Grans % 0.3; Lymphocytes % 16.4; MCH 29.3 pg (27.0-33.0); MCHC 31.4 % (32.0-36.0); MCV 93.3 fL (80-95); MPV 9.6 fL (8.0-11.0); Monocytes % 7.5; Neutrophils % 72.8; Nucleated RBC 0 %; Platelet Count 338 10^3/uL (130-400); RBC 3.89 10^6/uL (4.36-5.78); RDW 15.2 % (11.8-14.1); WBC 11.69 10^3/uL (4.4-10.8)
[2019-12-07 13:46] LABS: ALT 26 U/L (16-63); AST 15 U/L (15-37); Albumin 3.4 g/dL (3.4-5.0); Alkaline Phosphatase 69 U/L (46-116); Anion Gap 6.5 mmol/L (3-11); BUN 15 mg/dL (7-18); Bilirubin, Total 0.7 mg/dL (0.2-1.0); C-Reactive Protein 0.34 mg/dL (0.0-0.3); CO2 26.5 mmol/L (21.0-32.0); CREATININE 0.94 mg/dL (0.70-1.30); Calcium 8.9 mg/dL (8.5-10.1); Chloride 106 mmol/L (98-107); Glucose 79 mg/dL (74-106); Potassium 3.9 mmol/L (3.5-5.1); Sodium 139 mmol/L (136-145); Total Protein 6.6 g/dL (6.4-8.2)
[2019-12-07 14:03] LABS: Vancomycin, Trough 14.8 ug/mL (10.0-20.0)
== END 2019-12-07 18:51 ==
LOC: LBN 18:31
PROVIDERS: PCP Emergency Medicine; Visit Provider Emergency Medicine
DX: Z79.2 Long term (current) use of antibiotics (principal); L97.522 Non-pressure chronic ulcer of other part of left foot with fat layer exposed; B95.62 Methicillin resistant Staphylococcus aureus infection as the cause of diseases classified elsewhere
CPT/HCPCS: 80053; 80202; 85025; 86140

== ENCOUNTER 2019-12-14 10:04 | Outpatient (REF) | payer MEDICARE, SELFPAY ==
[2019-12-14 10:22] LABS: Abs Immature Grans 0.05 10^3/uL (0.0-0.06); Absolute Basophil Count 0.08 10^3/uL (0.0-0.2); Absolute Eosinophil Count 0.31 10^3/uL (0.0-0.7); Absolute Lymphocyte Count 2.04 10^3/uL (1.2-3.4); Absolute Monocyte Count 0.86 10^3/uL (0.1-0.8); Absolute Neutrophil Count 6.64 10^3/uL (1.2-6.7); Basophils % 0.8; Eosinophils % 3.1; HCT 37.4 % (40.0-50.0); HGB 12.1 g/dL (13.5-17.5); Immature Grans % 0.5; Lymphocytes % 20.4; MCH 29.6 pg (27.0-33.0); MCHC 32.4 % (32.0-36.0); MCV 91.4 fL (80-95); MPV 9.7 fL (8.0-11.0); Monocytes % 8.6; Neutrophils % 66.6; Nucleated RBC 0 %; Platelet Count 341 10^3/uL (130-400); RBC 4.09 10^6/uL (4.36-5.78); RDW 15.1 % (11.8-14.1); RDW-SD 50.8 fL; WBC 9.98 10^3/uL (4.4-10.8)
[2019-12-14 10:32] LABS: Anion Gap 8.5 mmol/L (3-11); BUN 21 mg/dL (7-18); CO2 26.5 mmol/L (21.0-32.0); CREATININE 0.91 mg/dL (0.70-1.30); Calcium 8.9 mg/dL (8.5-10.1); Chloride 105 mmol/L (98-107); Glucose 100 mg/dL (74-106); Potassium 4.4 mmol/L (3.5-5.1); Sodium 140 mmol/L (136-145); Vancomycin, Trough 16.2 ug/mL (10.0-20.0)
[2019-12-14 10:40] LABS: C-Reactive Protein 0.37 mg/dL (0.0-0.3)
== END 2019-12-14 10:24 ==
LOC: LBN 10:04
PROVIDERS: PCP Emergency Medicine; Visit Provider Emergency Medicine
DX: E11.622 Type 2 diabetes mellitus with other skin ulcer (principal); L97.523 Non-pressure chronic ulcer of other part of left foot with necrosis of muscle; E11.52 Type 2 diabetes mellitus with diabetic peripheral angiopathy with gangrene; I70.213 Atherosclerosis of native arteries of extremities with intermittent claudication, bilateral legs
CPT/HCPCS: 80048; 80202; 85025; 86140

== ENCOUNTER 2019-12-16 18:46 | Outpatient (REF) | payer MEDICARE, SELFPAY ==
[2019-12-16 22:59] LABS: Anion Gap 7.8 mmol/L (3-11); BUN 23 mg/dL (7-18); CO2 30.2 mmol/L (21.0-32.0); CREATININE 0.99 mg/dL (0.70-1.30); Calcium 9.6 mg/dL (8.5-10.1); Chloride 104 mmol/L (98-107); Glucose 108 mg/dL (74-106); NT-proBNP 1090 pg/mL (<300); Sodium 142 mmol/L (136-145)
== END 2019-12-16 19:06 ==
LOC: LBN 18:46
PROVIDERS: PCP Emergency Medicine; Visit Provider Emergency Medicine
DX: I50.9 Heart failure, unspecified (principal); I11.0 Hypertensive heart disease with heart failure
CPT/HCPCS: 80048; 83880

== ENCOUNTER 2020-07-19 20:37 | Outpatient (REF) | payer MEDICARE, SELFPAY ==
[2020-07-19 21:37] LABS: Anion Gap 12.8 mmol/L (3-11); BUN 22 mg/dL (7-18); CO2 22.2 mmol/L (21.0-32.0); CREATININE 0.9 mg/dL (0.70-1.30); Calcium 9.2 mg/dL (8.5-10.1); Calculated LDL 59 mg/dL (<100); Chloride 106 mmol/L (98-107); Cholesterol 104 mg/dL (<200); Glucose 109 mg/dL (74-106); HDL Cholesterol 27 mg/dL (40-60); Potassium 4.6 mmol/L (3.5-5.1); Sodium 141 mmol/L (136-145); Triglyceride 94 mg/dL (<150)
[2020-07-19 21:57] LABS: Hemoglobin A1C 6.5 % (<5.7)
== END 2020-07-19 20:38 | disposition home or self-care (01) ==
LOC: LBN 20:37
PROVIDERS: PCP Emergency Medicine; Visit Provider Emergency Medicine
DX: I10 Essential (primary) hypertension (principal); E11.9 Type 2 diabetes mellitus without complications
CPT/HCPCS: 80048; 80061; 83036

== ENCOUNTER → 2020-08-25 15:28 | Outpatient (BNVA) | payer MEDICARE, SELFPAY | PROVIDERS: PCP Emergency Medicine; Referring Provider Emergency Medicine; Visit Provider Physical Therapy Assistant | DX: L98.8 Other specified disorders of the skin and subcutaneous tissue (principal); E11.9 Type 2 diabetes mellitus without complications; I10 Essential (primary) hypertension; I73.9 Peripheral vascular disease, unspecified; Z79.01 Long term (current) use of anticoagulants | CPT/HCPCS: 99213 ==

== ENCOUNTER → 2020-09-16 09:01 | Outpatient (BNVA) | payer MEDICARE, SELFPAY | PROVIDERS: PCP Emergency Medicine; Referring Provider Emergency Medicine; Visit Provider Surgery | DX: L82.0 Inflamed seborrheic keratosis (principal) | CPT/HCPCS: 11402 ==

== ENCOUNTER 2020-09-16 09:54 | Outpatient (REF) | payer MEDICARE, SELFPAY ==
--- NOTE | 2020-09-16 09:23 | SKI_PTH ---
PATIENT: Vijay Williamson LOC: [facility] U#:[id number] AGE/SX: 70/M ROOM: RE09/16/[address]: Angie Munguia MD : 1950 BED: DIS: 09/16/2020 SPEC #: [id number] RECD: 09/16/20 10:41 STATUS: IMANI REAlbaro #: [id number] LOURDES: 09/16/20 09:[address]: Angie Munguia DEPT: Surgical Specimen RECD BY: Marlena Rivers ENTERED: 09/16/20 10:42 SP TYPE: RAMIRO COLEMAN DR: Reji Marrero DO Tissues: 1 - SKIN BIOPSY(SHAVE/PUNCH) Procedures: SKIN LEVEL 4 Comments: [id number]
== END 2020-09-16 09:55 | disposition home or self-care (01) ==
LOC: LBN 09:54
PROVIDERS: PCP Emergency Medicine; Visit Provider Surgery
DX: L82.0 Inflamed seborrheic keratosis (principal)
CPT/HCPCS: 88305

== ENCOUNTER 2021-07-12 04:07 | Outpatient (CLI) | payer MEDICARE, SELFPAY ==
[2021-07-12 12:48] LABS: HCT 34.5 % (40.0-50.0); HGB 10.8 g/dL (13.5-17.5); MCH 29.4 pg (27.0-33.0); MCHC 31.3 % (32.0-36.0); MCV 94 fL (80-95); MPV 9.2 fL (8.0-11.0); Platelet Count 408 10^3/uL (130-400); RBC 3.67 10^6/uL (4.36-5.78); RDW 14.1 % (11.8-14.1); RDW-SD 48.8 fL; WBC 10.87 10^3/uL (4.4-10.8)
[2021-07-12 13:48] LABS: ALT 47 U/L (16-63); AST 21 U/L (15-37); Albumin 3.8 g/dL (3.4-5.0); Alkaline Phosphatase 102 U/L (46-116); Anion Gap 11.4 mmol/L (3-11); BUN 17 mg/dL (7-18); Bilirubin, Total 0.4 mg/dL (0.2-1.0); CO2 23.6 mmol/L (21.0-32.0); Calcium 9.1 mg/dL (8.5-10.1); Calculated LDL 49 mg/dL (<100); Chloride 104 mmol/L (98-107); Cholesterol 98 mg/dL (<200); Glucose 205 mg/dL (74-106); HDL Cholesterol 30 mg/dL (40-60); Potassium 4.9 mmol/L (3.5-5.1); Sodium 139 mmol/L (136-145); Triglyceride 99 mg/dL (<150)
== END 2021-07-12 04:08 | disposition home or self-care (01) ==
LOC: LOS 04:08
PROVIDERS: PCP Family Medicine; Visit Provider Family Medicine
DX: E78.5 Hyperlipidemia, unspecified (principal); E11.9 Type 2 diabetes mellitus without complications; D64.9 Anemia, unspecified
CPT/HCPCS: 36415; 80053; 80061; 85027; 83036

== ENCOUNTER 2021-07-17 12:29 | Day surgery (SDC) | payer MEDICARE, SELFPAY ==
[2021-07-17] MEDS: Tropicam./Phenyleph. (1/2.5%) 5 ML BTL OD ×3 (13:11→13:30)
[2021-07-17 13:14] VITALS: BP 140/71; PULSE 62; RESP 20; TEMP 36.3; O2SAT 100
--- NOTE | 2021-07-17 13:38 | ANES.PREOP_ITS ---
General Info Date of Service Date Performed: 07/17/21 Height: 5 ft 10 in Weight: 133.5 kg Body Mass Index (BMI): 42.2 Surgical Procedure: Operation Date: 07/17/21 16:40 Proposed Procedure Side Surgeon p Cataract Extraction with IOL Implant Right Anthony Mars MD Meds Allergies and Home Medications Allergies Allergy/AdvReac Type Severity Reaction Status Date / Time No Known Allergies Allergy Verified 07/17/21 12:55 Home Medication Medication Instructions Recorded vitamin B complex (Complex B-100 1 tab PO DAILY 09/02/18 tablet,extended release) coenzyme Q10 75 mg capsule (Ultra 75 mg PO DAILY 10/07/19 CoQ10) apixaban 5 mg tablet (Eliquis) 5 mg PO BID #180 tabs 02/14/21 atorvastatin 80 mg tablet 80 mg PO QHS #90 tabs 02/14/21 furosemide 40 mg tablet (Lasix) 40 mg PO QAM #90 tabs 02/14/21 glipizide 5 mg tablet, extended 5 mg PO DAILY #90 tab-caps 02/14/21 release 24 hr (Glucotrol XL) lisinopril 40 mg tablet 40 mg PO DAILY #90 tab-caps 02/14/21 metformin 1,000 mg tablet 1,000 mg PO BID #180 tab-caps 02/14/21 metoprolol tartrate 50 mg tablet 50 mg PO BID #180 tab-caps 02/14/21 aspirin 81 mg tablet,delayed 81 mg PO DAILY #1 tab 07/05/21 release (Adult Low Dose Aspirin) triamcinolone acetonide 0.1 % 1 applic topical BID #15 grams 07/05/21 topical cream blood sugar diagnostic #90 strips 07/11/21 polymyxin B sulfate 10,000 1 drp ophthalmic (eye) TID 07/14/21 unit-trimethoprim 1 mg/mL eye drops Current Visit Medications: Current Medications Generic Name Dose Route Start Last Admin Trade Name Freq PRN Reason Stop Dose Admin Acetaminophen 1,000 mg 07/17/21 06:00 Acetaminophen 500 Mg Tab PO 07/17/21 16:00 Q4H PRN PRN Miscellaneous Medication 0 ml 07/17/21 06:00 Prednisolone 1%, Moxifloxacin 0.5%, Nepafenac 0.1% 5ml Btl OD 07/17/21 16:00 DIRECTED JOHN Miscellaneous Medication 0 ml 07/17/21 06:00 07/17/21 13:30 Tropicam./Phenyleph. (1/2.5%) 5 Ml Btl OD 07/17/21 16:00 1 drp DIRECTED JOHN Administration Tetracaine HCl 0 ml 07/17/21 06:00 Tetracaine 0.5% 4 Ml Btl OD 07/17/21 16:00 DIRECTED JOHN PFSH Active Problems Active Problems: Problem Status Onset Code Posterior subcapsular age-related cataract, right eye H25.041 Nuclear sclerotic cataract of right eye H25.11 Spinal stenosis of lumbosacral region 08/09/17 M48.07 Obstructive sleep apnea syndrome G47.33 Obesity E66.9 Kidney stone N20.0 Hyperlipidemia E78.5 Gastritis 12/04/13 K29.70 Fracture of pelvis S32.9XXA Essential hypertension 01/12/13 I10 Diabetes mellitus 07/16/12 E11.9 Colonoscopy refused 10/21/15 Z53.20 Benign prostatic hyperplasia 01/18/12 N40.0 AAA (abdominal aortic aneurysm) without rupture I71.4 Peripheral vascular disease I73.9 Basal cell carcinoma (BCC) C44.91 Anemia D64.9 Amputated toe S98.139A Type 2 diabetes mellitus with diabetic neuropathy, unspecified E11.40 Nicotine dependence F17.200 CAD (coronary artery disease) I25.10 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 07/14/21 Medical History Comments:: Nieves daily Surgical History Surgical History EGD - MAC (10/28/13) History of surgery on lower extremity Remote left leg surgery-to repair fracture after fall from ladder, also involved pelvic and low back fracture Tobacco Smoking/Tobacco Use Status: Current every day Tobacco Type: cigarettes Alcohol Alcohol Intake: former Substance Use Substance use: Daily Substance use type: marijuana Vital Signs and Lab Results Vital Signs Most Recent Vital Signs in EMR: Most Recent Vital Signs Temp Pulse Resp BP Pulse Ox 36.3 C L 62 20 140/71 100 07/17/21 13:14 07/17/21 13:14 07/17/21 13:14 07/17/21 13:14 07/17/21 13:14 Lab Results Blood Type / Crossmatch: No Data to Display Complete Blood Count: White Blood Count 10.87 10^3/uL (4.4-10.8) H 07/12/21 09:17 Red Blood Count 3.67 10^6/uL (4.36-5.78) L 07/12/21 09:17 Hemoglobin 10.8 g/dL (13.5-17.5) L 07/12/21 09:17 Hematocrit 34.5 % (40.0-50.0) L 07/12/21 09:17 Platelet Count 408 10^3/uL (130-400) H 07/12/21 09:17 Complete Metabolic Panel: Sodium Level 139 mmol/L (136-145) 07/12/21 09:17 Potassium Level 4.9 mmol/L (3.5-5.1) 07/12/21 09:17 Chloride Level 104 mmol/L (98-107) 07/12/21 09:17 Carbon Dioxide Level 23.6 mmol/L (21.0-32.0) 07/12/21 09:17 Blood Urea Nitrogen 17 mg/dL (7-18) 07/12/21 09:17 Creatinine 1.0 mg/dL (0.70-1.30) 07/12/21 09:17 Estimated GFR/1.73 m2 >= 60.00 (mL/min/1.73m2) 07/12/21 09:17 Calcium Level 9.1 mg/dL (8.5-10.1) 07/12/21 09:17 Albumin 3.8 g/dL (3.4-5.0) 07/12/21 09:17 Glucose Level 205 mg/dL (74-106) H 07/12/21 09:17 Hemoglobin A1c 6.0 % (<5.7) H 07/12/21 09:17 Liver Function Panel: Alanine Aminotransferase (ALT/SGPT) 47 U/L (16-63) 07/12/21 09: 17 Aspartate Amino Transf (AST/SGOT) 21 U/L (15-37) 07/12/21 09:17 Coagulation Panel: No Data to Display Cardiac Panel: No Data to Display Arterial Blood Gas: No Data to Display Venous Blood Gas: No Data to Display Pancreas Panel: No Data to Display Thyroid Panel: No Data to Display Infectious Disease: No Data to Display Blood Cultures: No Data to Display Toxicology Panel: No Data to Display Imaging and Studies Imaging and Studies Study information below may be from another EMR and interpreted by another provider. Please see original notes in EMR for more complete details. EKG Summary: DATE/TIME OF SERVICE: 12/02/19 1458 : 1950ERFORMING LOCATION: ER APPROVED REPORT Exam: Resting ECG Patient Location: E HR:69 bpm ECG Measurements Heart Rate 69 AXIS WV 181 P 40 QRSd 113 QRS 56 QT 416 T213 QTc 445 Conclusion Sinus rhythm...normal P axis, V-rate 60- 99 Nonspecific repol abnormality, diffuse leads...ST dep, T flat/neg, ant/lat/inf Stress Test Summary: Date of Exam: 09/08/18Sex: M : 1950ge: 68 Exam(s) a NM:NM MPI rest & stress grp *[facility]* *[facility]* [address] [place] [address] Myocardial Perfusion Imaging - SPECT Regadenoson Date of study: 09/08/2018 *PATIENT PRESENTATION* Height: 177.8cm (70in) Blood Pressure: Weight: 134.1kg (295lb) BSA: 2.64m^2 Referring physician: Orlando Soto MD Ordering physician: Reji Marrero Impressions: - Abnormal study after pharmacologic stress. - Abnormal contraction consistent with cardiomyopathy. Summary: 1. Myocardial perfusion imaging: There is a small sized, severely intense, fixed defect involving the basal inferior wall(s). . There is a small sized, severely intense, fixed defect involving the apical wall(s). . Overall ischemia: minimal. 2. The calculated left ventricular ejection fraction after stress: 41%. Diffuse left ventricular regional motion abnormalities. Anesthesia Assessment and Plan Anesthesia History Personal History: No History of Anesthesia Complications Family History: No Family History of Anesthesia Complications Exercise Tolerance Exercise Tolerance: Metabolic Equivalents>4 Pertinent Negatives Pertinent Negatives: No Symptoms of GERD and No History of CVA/TIA Cardiac & Pulmonary Exam Cardiac Exam: Normal S1/S2 Heart Sounds Pulmonary Exam: Clear Bilateral Breath Sounds Implantable Cardiac Device Does patient have a Pacemaker or an ICD?: No Airway Exam Known Difficult Airway: No Mallampati Class: 2 Mouth Opening: Normal (> 3cm) Thyromental Distance: Greater than 3 cm Neck Range of Motion: Full ROM Neck Circumference: Normal Teeth Condition: Normal Dentition ASA Classification ASA Score: ASA 3 Emergency Case?: No NPO Status NPO Status: NPO Clears >2 hours, Solids >8 hours Anesthesia Plan Resuscitation Status: Full Code Anesthesia Technique: MAC Anesthesia Airway Planned: Natural Airway Monitors Used: Standard Monitors
[2021-07-17 13:56] VITALS: BMI 42.2
[2021-07-17] MEDS: Povidone-Iodine Ophth 30 ML BTL (14:03)
[2021-07-17] MEDS: Tetracaine 0.5% 4 ML BTL OD (14:03)
[2021-07-17] MEDS: Lidocaine 2% Jelly 6 ML SYR (14:08)
[2021-07-17] MEDS: Balanced Salt Soln.-PLUS 500 ML BAG (14:10)
[2021-07-17] MEDS: Duovisc Viscoelastic System EACH 1 EACH (14:10)
[2021-07-17] MEDS: Trypan Blue 0.06% 0.5 ML SYR (14:14)
--- NOTE | 2021-07-17 14:40 | W.PM.DSUDISC ---
Discharge Plan Disposition Patient Disposition: HOME Condition: Good Discharge Details Attending Provider: Anthony Mars Primary Care Provider: Reno Hernandez Home Meds and New Rx's Prescriptions: No Action Complex B-100 Tablet Extended Release 1 tab PO DAILY Ultra CoQ10 75 mg capsule 75 mg PO DAILY triamcinolone acetonide 0.1 % cream 1 applic topical BID Qty: 15 1RF Rx Instructions: To affected area at external ear aspirin [Adult Low Dose Aspirin] 81 mg tablet,delayed release (DR/EC) 81 mg PO DAILY Qty: 1 0RF Eliquis 5 mg tablet 5 mg PO BID Qty: 180 3RF atorvastatin 80 mg tablet 80 mg PO QHS Qty: 90 3RF furosemide [Lasix] 40 mg tablet 40 mg PO QAM Qty: 90 3RF glipizide [Glucotrol XL] 5 mg tablet extended release 24hr 5 mg PO DAILY Qty: 90 4RF Hold Instructions: due to low FBS's Rx Instructions: RX'D-01/18/12 lisinopril 40 mg tablet 40 mg PO DAILY Qty: 90 4RF metformin 1,000 mg tablet 1,000 mg PO BID Qty: 180 4RF Rx Instructions: RX'D 01/18/12 metoprolol tartrate 50 mg tablet 50 mg PO BID Qty: 180 4RF Rx Instructions: RX'D 01/18/12 (DME) blood sugar diagnostic Strip 1 ea Miscellaneous DAILY Qty: 90 3RF Rx Instructions: test once/day polymyxin B sulf-trimethoprim 10,000 unit- 1 mg/mL drops 1 drp ophthalmic (eye) TID Discharge Instructions Stand Alone Forms: Post-op Topical Cataract, Leigh Carrillo (DSU) Discharge Orders Discharge Orders: Discharge Order (Routine); Ordered 07/17/21 Ordered By: Anthony Mars DS: Diagnosis Discharge Diagnosis (1) Posterior subcapsular age-related cataract, right eye: Status: Resolved (2) Nuclear sclerotic cataract of right eye: Status: Resolved
--- NOTE | 2021-07-17 14:41 | W.PM.OP ---
Date of service: 07/17/21 Time of Service: 13:41 Operative Note Operative Note DATE OF PROCEDURE: 07/17/21 PRE-OP DIAGNOSIS: Dense nuclear/posterior subcapsular cataract, right eye Poor red reflex, right eye secondary to cataract POST-OP DIAGNOSIS: same PROCEDURE: Cataract extraction using phacoemulsification with intraocular lens implantation, right eye, using capsular staining with Vision Blue SURGEON: Atnhony Mars ANESTHESIA TYPE: Local By Surgeon and MAC Refer to Anesthesia Record PATHOLOGY: none sent COMPLICATIONS: None Patient was transported to: same day Patient's condition: stable Implants: [employer] / [employer] Tecnis [id number] Indications: Progressive visual loss due to cataract, right eye Procedure Description: CATARACT SURGERY OPERATIVE REPORT PREOPERATIVE DIAGNOSIS: 1. Dense nuclear/posterior subcapsular cataract, right eye 2. Poor red reflex secondary to #1 POSTOPERATIVE DIAGNOSIS: Same OPERATION: 1. Cataract extraction using phacoemulsification with posterior chamber intraocular lens implant, right eye. 2. Capsular staining with Vision Blue IOL: IOL Professor Of Genetics/Model: [employer] / REBEKAH Tecnis [id number] IOL Power: + 23.5 diopters IOL Serial Number: [id number] Optic Diameter: 6.0mm Haptic/Overall Diameter: 13.0mm PHACO INFO: Demetris [employer] Vision System with OZil and Active Fluidics Cumulative Dispersed Energy (CDE): 23.49 seconds SURGEON: Anthony Mars MD, ALTAF ANESTHESIA: Monitored Anesthesia Care (MAC), with local sub-tenon's anesthetic infiltration COMPLICATIONS: None SPECIMENS: None INDICATIONS FOR PROCEDURE: Trolled the patient is a 71-year-old male with history of diminished visual acuity in his right eye secondary to development of significant nuclear/posterior subcapsular cataract. The option of cataract surgery was offered to the patient and he wished to proceed. PROCEDURE: The correct surgical eye was identified and marked as the right eye and the pupil was dilated in the preoperative area using mydriatics and cycloplegics. The dilated pupil size was 5.0 mm. He elected to proceed without oral sedation. The patient was brought to the operating room where cardiopulmonary monitoring was instituted and surgical time-out was performed, confirming the correct operative eye and IOL power. Topical anesthesia was administered and ophthalmic povidone-iodine 5% was instilled into the conjunctival fornices. Lidocaine gel was applied to the cornea and the ignacio-ocular area was prepped with Betadine 10% solution and draped in the usual sterile fashion for intraocular surgery, including an aperture drape. A Tegaderm transparent film dressing was cut in half and used to cover the lashes and lid margins. Care was taken to sequester the lashes and lid margins under the Tegaderm dressing. A lid speculum was placed between the lids of the operative eye and the Demetris LuxOR Revalia operating microscope was maneuvered into position. Emmanuel scissors were then used to make a conjunctival buttonhole approximately 6mm posterior to the limbus in the inferonasal quadrant. Blunt dissection was carried out to expose bare sclera, and a blunt-tipped sub-tenon?s anesthesia cannula was introduced and passed posteriorly along the globe where non-preserved plain lidocaine was injected into posterior sub-Tenon?s space. A sideport knife was used to make a paracentesis port inferotemporally. Intraocular phenylephrine/lidocaine was injected into the anterior chamber. Air was injected into the anterior chamber, followed by Vision Blue, which was painted over the anterior capsule and then irrigated out with BSS. The anterior chamber was filled with viscoelastic. A 2.4 mm keratome knife was used to create a 2-plane near clear corneal tunnel extending approximately 2 mm into clear cornea superior temporally.. A flap was raised on the anterior capsule and capsulorhexis forceps were used to complete a continuous curvilinear capsulorhexis of 5.0 mm. Balanced salt solution was then used to perform cortical cleaving hydrodissection and nuclear hydrodelineation until the lens could be freely rotated within the capsular bag. The lens nucleus was then disassembled and removed within the capsular bag and iris plane using phacoemulsification. Residual cortical material was removed using the I/A handpiece. The posterior capsule was carefully polished to remove as much residual lens epithelial cells as safely possible. The capsular bag was then inflated and the anterior chamber deepened with viscoelastic. The lens implant described above was inserted into the capsular bag using the REBEKAH [place] Injector. A Kuglen hook was used to dial the IOL into position. Residual viscoelastic was then removed first from posterior to the IOL, then from the anterior chamber using the I/A handpiece. The lens implant was noted to center nicely within the capsular bag. The incisions were stromally hydrated, and the anterior chamber was reformed using BSS. Then 0.5cc of moxifloxacin 1.0mg/ml were injected into the capsular bag and anterior chamber. The incisions were checked with a Weck spear and found to be secure. Several drops of ophthalmic povidone-iodine 5% were then applied to the eye followed by two drops of Imprimis combination prednisolone/moxifloxacin/nepafenac solution. The drapes were removed and a clear plastic protective eye shield was placed over the eye. The patient was then returned to Same Day Surgery in stable condition.
[2021-07-17 14:42] VITALS: BP 136/84; PULSE 60; RESP 20; TEMP 36.2; O2SAT 99
--- NOTE | 2021-07-17 14:46 | W.ANESPOSTOP ---
Postoperative Evaluation Date, Time and Location Date Performed: 07/17/21 Time Performed: 14:46 Patient Location: Day Surgery Unit Vital Signs Most Recent Imported Vital Signs: Most Recent Vital Signs Temp Pulse Resp BP Pulse Ox 36.3 C L 62 20 140/71 100 07/17/21 13:14 07/17/21 13:14 07/17/21 13:14 07/17/21 13:14 07/17/21 13:14 Pain Score Most Recent Pain Score: Most Recent Pain Score Pain Level 0 07/17/21 13:14 Assessment Mental Status: Awake (Alert & Oriented to Patient Baseline) Airway and Respiratory Function: Patent airway with normal (patient baseline) respiratory exam Cardiovascular Function: Hemodynamically Stable Hydration Status: Adequately Hydrated Nausea & Vomiting: No Nausea or Vomiting Pain: Pt. Denies Any Pain Peripheral Nerve Block: Other (Local by Dr. Mars) Postoperative Comments:: VS reviewed at bedside in DSU and stable. Have not been input by RN yet
== END 2021-07-17 15:07 | disposition home or self-care (01) ==
PROVIDERS: PCP Family Medicine; Visit Provider Ophthalmology
PROC: (CPT 66984; principal; 2021-07-17 16:30)
DX: H25.041 Posterior subcapsular polar age-related cataract, right eye (principal); E11.9 Type 2 diabetes mellitus without complications; I10 Essential (primary) hypertension; E78.5 Hyperlipidemia, unspecified
CPT/HCPCS: 66984; V2632

== ENCOUNTER 2021-07-31 09:36 | Day surgery (SDC) | payer MEDICARE, SELFPAY ==
--- NOTE | 2021-07-31 06:31 | ANES.PREOP_ITS ---
General Info Date of Service Date Performed: 07/31/21 Height: 5 ft 10 in Weight: 134 kg Body Mass Index (BMI): 42.3 Surgical Procedure: Operation Date: 07/31/21 12:40 Proposed Procedure Side Surgeon p Cataract Extraction with IOL Implant Left Anthony Mars MD Meds Allergies and Home Medications Allergies Allergy/AdvReac Type Severity Reaction Status Date / Time No Known Allergies Allergy Verified 07/31/21 10:00 Home Medication Medication Instructions Recorded vitamin B complex (Complex B-100 1 tab PO DAILY 09/02/18 tablet,extended release) coenzyme Q10 75 mg capsule (Ultra 75 mg PO DAILY 10/07/19 CoQ10) apixaban 5 mg tablet (Eliquis) 5 mg PO BID #180 tabs 02/14/21 atorvastatin 80 mg tablet 80 mg PO QHS #90 tabs 02/14/21 furosemide 40 mg tablet (Lasix) 40 mg PO QAM #90 tabs 02/14/21 glipizide 5 mg tablet, extended 5 mg PO DAILY #90 tab-caps 02/14/21 release 24 hr (Glucotrol XL) lisinopril 40 mg tablet 40 mg PO DAILY #90 tab-caps 02/14/21 metformin 1,000 mg tablet 1,000 mg PO BID #180 tab-caps 02/14/21 metoprolol tartrate 50 mg tablet 50 mg PO BID #180 tab-caps 02/14/21 aspirin 81 mg tablet,delayed 81 mg PO DAILY #1 tab 07/05/21 release (Adult Low Dose Aspirin) triamcinolone acetonide 0.1 % 1 applic topical BID #15 grams 07/05/21 topical cream blood sugar diagnostic #90 strips 07/11/21 polymyxin B sulfate 10,000 1 drp ophthalmic (eye) TID 07/14/21 unit-trimethoprim 1 mg/mL eye drops ascorbic acid (vitamin C) 1,000 mg 1,000 mg PO DAILY 07/31/21 tablet (Vitamin C) magnesium 250 mg tablet 250 mg PO DAILY 07/31/21 Current Visit Medications: Current Medications Generic Name Dose Route Start Last Admin Trade Name Freq PRN Reason Stop Dose Admin Acetaminophen 1,000 mg 07/31/21 06:00 Acetaminophen 500 Mg Tab PO Q4H PRN PRN Miscellaneous Medication 0 ml 07/31/21 06:00 Prednisolone 1%, Moxifloxacin 0.5%, Nepafenac 0.1% 5ml Btl OS DIRECTED JOHN Miscellaneous Medication 0 ml 07/31/21 06:00 Tropicam./Phenyleph. (1/2.5%) 5 Ml Btl OS DIRECTED JOHN Tetracaine HCl 0 ml 07/31/21 06:00 Tetracaine 0.5% 4 Ml Btl OS DIRECTED [facility] PFSH Active Problems Active Problems: Problem Status Onset Code Spinal stenosis of lumbosacral region 08/09/17 M48.07 Obstructive sleep apnea syndrome G47.33 Obesity E66.9 Kidney stone N20.0 Hyperlipidemia E78.5 Gastritis 12/04/13 K29.70 Fracture of pelvis S32.9XXA Essential hypertension 01/12/13 I10 Diabetes mellitus 07/16/12 E11.9 Colonoscopy refused 10/21/15 Z53.20 Benign prostatic hyperplasia 01/18/12 N40.0 AAA (abdominal aortic aneurysm) without rupture I71.4 Peripheral vascular disease I73.9 Basal cell carcinoma (BCC) C44.91 Anemia D64.9 Amputated toe S98.139A Type 2 diabetes mellitus with diabetic neuropathy, unspecified E11.40 Nicotine dependence F17.200 CAD (coronary artery disease) I25.10 Eczema of external ear H60.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 07/14/21 Medical History Comments:: Nieves daily HS Surgical History Surgical History EGD - MAC (10/28/13) History of surgery on lower extremity Remote left leg surgery-to repair fracture after fall from ladder, also involved pelvic and low back fracture Hx of cataract surgery Hx of vein stripping Tobacco Smoking/Tobacco Use Status: Current every day Tobacco Type: cigarettes Alcohol Alcohol Intake: former Substance Use Substance use: Daily Substance use type: marijuana Vital Signs and Lab Results Vital Signs Most Recent Vital Signs in EMR: Temp Pulse Resp BP Pulse Ox 36.6 C 70 20 167/90 H 99 07/31/21 09:51 07/31/21 09:51 07/31/21 09:51 07/31/21 09:51 07/31/21 09:51 Lab Results Blood Type / Crossmatch: No Data to Display Complete Blood Count: White Blood Count 10.87 10^3/uL (4.4-10.8) H 07/12/21 09:17 Red Blood Count 3.67 10^6/uL (4.36-5.78) L 07/12/21 09:17 Hemoglobin 10.8 g/dL (13.5-17.5) L 07/12/21 09:17 Hematocrit 34.5 % (40.0-50.0) L 07/12/21 09:17 Platelet Count 408 10^3/uL (130-400) H 07/12/21 09:17 Complete Metabolic Panel: Sodium Level 139 mmol/L (136-145) 07/12/21 09:17 Potassium Level 4.9 mmol/L (3.5-5.1) 07/12/21 09:17 Chloride Level 104 mmol/L (98-107) 07/12/21 09:17 Carbon Dioxide Level 23.6 mmol/L (21.0-32.0) 07/12/21 09:17 Blood Urea Nitrogen 17 mg/dL (7-18) 07/12/21 09:17 Creatinine 1.0 mg/dL (0.70-1.30) 07/12/21 09:17 Estimated GFR/1.73 m2 >= 60.00 (mL/min/1.73m2) 07/12/21 09:17 Calcium Level 9.1 mg/dL (8.5-10.1) 07/12/21 09:17 Albumin 3.8 g/dL (3.4-5.0) 07/12/21 09:17 Glucose Level 205 mg/dL (74-106) H 07/12/21 09:17 Hemoglobin A1c 6.0 % (<5.7) H 07/12/21 09:17 Liver Function Panel: Alanine Aminotransferase (ALT/SGPT) 47 U/L (16-63) 07/12/21 09: 17 Aspartate Amino Transf (AST/SGOT) 21 U/L (15-37) 06/01/22 09:17 Coagulation Panel: No Data to Display Cardiac Panel: No Data to Display Arterial Blood Gas: No Data to Display Venous Blood Gas: No Data to Display Pancreas Panel: No Data to Display Thyroid Panel: No Data to Display Infectious Disease: No Data to Display Blood Cultures: No Data to Display Toxicology Panel: No Data to Display Imaging and Studies Imaging and Studies Study information below may be from another EMR and interpreted by another provider. Please see original notes in EMR for more complete details. EKG Summary: 11/2019: Conclusion Sinus rhythm...normal P axis, V-rate 60- 99 Nonspecific repol abnormality, diffuse leads...ST dep, T flat/neg, ant/lat/inf Stress Test Summary: 09/08/18 - Abnormal study after pharmacologic stress. - Abnormal contraction consistent with cardiomyopathy. Summary: 1. Myocardial perfusion imaging: There is a small sized, severely intense, fixed defect involving the basal inferior wall(s). . There is a small sized, severely intense, fixed defect involving the apical wall(s). . Overall ischemia: minimal. 2. The calculated left ventricular ejection fraction after stress: 41%. Diffuse left ventricular regional motion abnormalities. Anesthesia Assessment and Plan Anesthesia History Personal History: No History of Anesthesia Complications Family History: No Family History of Anesthesia Complications Exercise Tolerance Exercise Tolerance: Metabolic Equivalents>4 Cardiac & Pulmonary Exam Cardiac Exam: Normal S1/S2 Heart Sounds Pulmonary Exam: Clear Bilateral Breath Sounds Implantable Cardiac Device Does patient have a Pacemaker or an ICD?: No Airway Exam Known Difficult Airway: No Mallampati Class: 2 Mouth Opening: Normal (> 3cm) Thyromental Distance: Greater than 3 cm Neck Range of Motion: Full ROM Neck Circumference: Normal Teeth Condition: Normal Dentition ASA Classification ASA Score: ASA 3 Emergency Case?: No NPO Status NPO Status: NPO Clears >2 hours, Solids >8 hours Anesthesia Plan Resuscitation Status: Full Code Anesthesia Technique: MAC Anesthesia Airway Planned: Natural Airway Monitors Used: Standard Monitors Preoperative Comments:: 71 yo male for cataract removal. Sig PMHx: spinal stenosis, RIANA, HTN, AAA, PVD (s/p right iliofemoral endarterectomy 2018, l iliofemoral/SFA/profunda endarterectomy with patch angio and l SFA-PT bypass 2019), CAD (3 v dz LAD, LCX, RCA), DMII, fatty liver. Previous Anes: no MKO for last cataract. previous igel 5 without success, airq 4.5 with success. video mac 3 grade 4. 2 hand mask ventilation with 100 mm OPA.
[2021-07-31 09:51] VITALS: BP 167/90; PULSE 70; RESP 20; TEMP 36.6; O2SAT 99
[2021-07-31] MEDS: Tropicam./Phenyleph. (1/2.5%) 5 ML BTL OS ×3 (10:20→10:32)
[2021-07-31 10:27] VITALS: BMI 42.3
[2021-07-31] MEDS: Tetracaine 0.5% 4 ML BTL OS (11:55)
[2021-07-31] MEDS: Balanced Salt Soln.-PLUS 500 ML BAG (11:56)
[2021-07-31] MEDS: Duovisc Viscoelastic System EACH 1 EACH (11:56)
[2021-07-31] MEDS: Lidocaine 2% Jelly 6 ML SYR (11:57)
[2021-07-31] MEDS: Povidone-Iodine Ophth 30 ML BTL (11:58)
[2021-07-31 12:15] VITALS: BP 132/69; PULSE 66; RESP 18; TEMP 36.2; O2SAT 97
--- NOTE | 2021-07-31 12:16 | W.PM.DSUDISC ---
Discharge Plan Disposition Patient Disposition: HOME Condition: Good Discharge Details Attending Provider: Anthony Mars Primary Care Provider: Reno Hernandez Home Meds and New Rx's Prescriptions: No Action Complex B-100 Tablet Extended Release 1 tab PO DAILY Ultra CoQ10 75 mg capsule 75 mg PO DAILY triamcinolone acetonide 0.1 % cream 1 applic topical BID Qty: 15 1RF Rx Instructions: To affected area at external ear aspirin [Adult Low Dose Aspirin] 81 mg tablet,delayed release (DR/EC) 81 mg PO DAILY Qty: 1 0RF Eliquis 5 mg tablet 5 mg PO BID Qty: 180 3RF atorvastatin 80 mg tablet 80 mg PO QHS Qty: 90 3RF furosemide [Lasix] 40 mg tablet 40 mg PO QAM Qty: 90 3RF glipizide [Glucotrol XL] 5 mg tablet extended release 24hr 5 mg PO DAILY Qty: 90 4RF Hold Instructions: due to low FBS's Rx Instructions: RX'D-01/18/12 lisinopril 40 mg tablet 40 mg PO DAILY Qty: 90 4RF metformin 1,000 mg tablet 1,000 mg PO BID Qty: 180 4RF Rx Instructions: RX'D 01/18/12 metoprolol tartrate 50 mg tablet 50 mg PO BID Qty: 180 4RF Rx Instructions: RX'D 01/18/12 (DME) blood sugar diagnostic Strip 1 ea Miscellaneous DAILY Qty: 90 3RF Rx Instructions: test once/day magnesium 250 mg Tablet 250 mg PO DAILY ascorbic acid (vitamin C) [Vitamin C] 1,000 mg Tablet 1,000 mg PO DAILY polymyxin B sulf-trimethoprim 10,000 unit- 1 mg/mL drops 1 drp ophthalmic (eye) TID Discharge Instructions Stand Alone Forms: Post-op Topical Cataract, Press Ganey (DSU) Discharge Orders Discharge Orders: Discharge Order (Routine); Ordered 07/31/21 Ordered By: Anthony Mars DS: Diagnosis Discharge Diagnosis (1) Posterior subcapsular age-related cataract of left eye: Status: Resolved (2) Nuclear sclerotic cataract of left eye: Status: Resolved
--- NOTE | 2021-07-31 12:17 | W.PM.OP ---
Date of service: 07/31/21 Time of Service: 13:05 Operative Note Operative Note DATE OF PROCEDURE: 07/31/21 PRE-OP DIAGNOSIS: Dense nuclear/posterior subcapsular cataract, left eye POST-OP DIAGNOSIS: same PROCEDURE: Cataract extraction using phacoemulsification with intraocular lens implant, left eye SURGEON: Anthony Mars ANESTHESIA TYPE: Local By Surgeon and MAC Refer to Anesthesia Record PATHOLOGY: none sent COMPLICATIONS: None Patient was transported to: same day Patient's condition: stable Implants: [employer] / [employer] Tecnis [id number] Indications: Progressive decreased vision due to cataract, left eye Procedure Description: CATARACT SURGERY OPERATIVE REPORT PREOPERATIVE DIAGNOSIS: 1. Dense nuclear/posterior subcapsular cataract, left eye POSTOPERATIVE DIAGNOSIS: Same OPERATION: 1. Cataract extraction using phacoemulsification with posterior chamber intraocular lens implant, left eye. IOL: IOL Asphalt Screed Operator/Model: [employer] / REBEKAH Tecnis [id number] IOL Power: + 23.5 diopters IOL Serial Number: [id number] Optic Diameter: 6.0 mm Haptic/Overall Diameter: 13.0 mm PHACO INFO: Demetris Slingjoturion Vision System with OZil and Active Fluidics Cumulative Dispersed Energy (CDE): 21.73 seconds SURGEON: Anthony Mars MD, ALTAF ANESTHESIA: Monitored A [facility] (MAC), with local sub-tenon's anesthetic infiltration COMPLICATIONS: None SPECIMENS: None INDICATIONS FOR PROCEDURE: The patient is a 71-year-old gentleman with history of diminished visual acuity in both eyes secondary to the development of bilateral nuclear cataract. He has already undergone cataract surgery in the left eye and is doing well postoperatively. He now presents for cataract surgery in the right eye. PROCEDURE: The correct surgical eye was identified and marked as the left eye and the pupil was dilated in the preoperative area using mydriatics and cycloplegics. The dilated pupil size was 6.0 mm. He elected to proceed without oral sedation.. The patient was brought to the operating room where cardiopulmonary monitoring was instituted and surgical time-out was performed, confirming the correct operative eye and IOL power. Topical anesthesia was administered and ophthalmic povidone-iodine 5% was instilled into the conjunctival fornices. Lidocaine gel was applied to the cornea and the ignacio-ocular area was prepped with Betadine 10% solution and draped in the usual sterile fashion for intraocular surgery, including an aperture drape. A Tegaderm transparent film dressing was cut in half and used to cover the lashes and lid margins. Care was taken to sequester the lashes and lid margins under the Tegaderm dressing. A lid speculum was placed between the lids of the operative eye and the Demetris Lux[employer] Revalia operating microscope was maneuvered into position. Emmanuel scissors were then used to make a conjunctival buttonhole approximately 6mm posterior to the limbus in the inferonasal quadrant. Blunt dissection was carried out to expose bare sclera, and a blunt-tipped sub-tenon?s anesthesia cannula was introduced and passed posteriorly along the globe where non-preserved plain lidocaine was injected into posterior sub-Tenon?s space. A sideport knife was used to make a paracentesis port superiorly/superiortemporally. Intraocular phenylephrine/lidocaine was injected int the anterior chamber.. The anterior chamber was filled with viscoelastic. A 2.4mm keratome knife was used to construct a 2-plane near-clear corneal tunnel extending 2.0mm into clear cornea temporally. A flap was raised on the anterior capsule and capsulorhexis forceps were used to complete a continuous curvilinear capsulorhexis of 5.0 mm. Balanced salt solution was then used to perform cortical cleaving hydrodissection and nuclear hydrodelineation until the lens could be freely rotated within the capsular bag. The lens nucleus was then disassembled and removed within the capsular bag and iris plane using phacoemulsification. Residual cortical material was removed using the 45-degree angled silicone I/A tip with 0.3mm port. The posterior capsule was carefully polished to remove as much residual lens epithelial cells as safely possible. The capsular bag was then inflated and the anterior chamber deepened with viscoelastic. The lens implant described above was inserted into the capsular bag using the REBEKAH [place] Injector. A Kuglen hook was used to dial the IOL into position. Residual viscoelastic was then removed first from posterior to the IOL, then from the anterior chamber using the I/A handpiece. The lens implant was noted to center nicely within the capsular bag. The incisions were stromally hydrated, and the anterior chamber was reformed using BSS. Then 0.5cc of moxifloxacin 1.0mg/ml were injected into the capsular bag and anterior chamber. The incisions were checked with a Weck spear and found to be secure. Several drops of ophthalmic povidone-iodine 5% were then applied to the eye followed by two drops of Imprimis combination prednisolone/moxifloxacin/nepafenac solution. The drapes were removed and a clear plastic protective eye shield was placed over the eye. The patient was then returned to Same Day Surgery in stable condition.
--- NOTE | 2021-07-31 12:27 | W.ANESPOSTOP ---
Postoperative Evaluation Date, Time and Location Date Performed: 07/31/21 Time Performed: 12:24 Patient Location: Day Surgery Unit Vital Signs Most Recent Imported Vital Signs: Most Recent Vital Signs Temp Pulse Resp BP Pulse Ox 36.2 C L 66 18 132/69 97 07/31/21 12:15 07/31/21 12:15 07/31/21 12:15 07/31/21 12:15 07/31/21 12:15 Pain Score Most Recent Pain Score: Most Recent Pain Score Pain Level 0 07/31/21 12:15 Assessment Mental Status: Awake (Alert & Oriented to Patient Baseline) Airway and Respiratory Function: Patent airway with normal (patient baseline) respiratory exam Cardiovascular Function: Hemodynamically Stable Hydration Status: Adequately Hydrated Nausea & Vomiting: No Nausea or Vomiting Pain: Pt. Denies Any Pain Peripheral Nerve Block: Patient did not receive a nerve block
== END 2021-07-31 12:34 | disposition home or self-care (01) ==
PROVIDERS: PCP Family Medicine; Visit Provider Ophthalmology
PROC: (CPT 66984; principal; 2021-07-31 12:30)
DX: H25.042 Posterior subcapsular polar age-related cataract, left eye (principal); E11.9 Type 2 diabetes mellitus without complications; G47.33 Obstructive sleep apnea (adult) (pediatric); I25.10 Atherosclerotic heart disease of native coronary artery without angina pectoris; I10 Essential (primary) hypertension
CPT/HCPCS: 66984; V2632

== ENCOUNTER 2023-11-30 21:31 | Observation (INO) | payer MEDICARE, SELFPAY ==
[2023-11-30] VITALS (9 sets, daily range): BP systolic 128–129; BP diastolic 44–70; PULSE 82–94; RESP 16–24; TEMP 36.6; O2SAT 90–95
--- NOTE | 2023-11-30 22:00 | DI.CT_ITS ---
Exam(s) CT ABD AORTA CTA W RUNOFF EXAM: CT ABD AORTA CTA W RUNOFF CLINICAL HISTORY: L flank/lower abdominal pain w N/V. TECHNIQUE: Imaging Protocol: Axial CT angiography was performed with multi-slice acquisition and mu lti-planar and/or 3D reconstructions. CONTRAST MATERIAL: Intravenous: Omnipaque 350 Contrast volume:150 mL Oral: No COMPARISON: CT PELVIC/LOWER ABD WITHOUT CONT from 08/10/[address] ABDOMEN PELVIS WO/W from 10/08/[address] CHEST PE CTA from 12/02/2019 FINDINGS: Vascular Structures: Abdomen and pelvis: Celiac [place]/SMA: No evidence of occlusion or significant stenosis. Atherosclerotic calcification is present. Renal Arteries: No evidence of occlusion or significant stenosis. Atherosclerotic calcification is se en at the origins of the renal arteries without significant stenosis. The distal left renal artery i s narrowed. Aorta: There is a 3.6 x 3.2 cm infrarenal abdominal aortic aneurysm. Atherosclerotic calcification is present. No dissection is identified. Iliac Arteries: On the left, there is aneurysmal dilatation of the distal common iliac artery measur ing 3.2 cm. There is atherosclerotic calcification of the external iliac artery with approximately 5 0 percent narrowing. No occlusion. There is aneurysmal dilatation of the proximal left internal evelin ac artery measuring 2.4 cm. There is occlusion of the left internal iliac artery just distal to this aneurysm. On the right, there is aneurysmal dilatation of the common iliac artery measuring 3.0 cm. Atherosclerotic calcification is seen in the external iliac artery without significant stenosis. T here is aneurysmal dilatation of the proximal right internal iliac artery. Lower extremities: Right: Femoral: The common femoral artery is patent. No significant stenosis. There is complete occlusion of the right femoral artery Deep Femoral Artery: Atherosclerotic calcification is seen but no significant stenosis or occlusion i s present. Popliteal: There is reconstitution of the popliteal artery with areas of stenosis up to 70 percent. Extensive atherosclerotic calcification is present. Knee Trifurcation: Atherosclerotic calcification is seen. The 3 distal vessels are visualized but ar e diminutive. Left: Femoral: The common femoral artery is patent. There is complete occlusion of the left femoral artery . There is a femoral graft which is patent and arises from the common femoral artery and extends to the posterior tibialis artery. Deep femoral artery: There is atherosclerosis present but no significant stenosis. No occlusion. Popliteal: There is reconstitution of the distal popliteal artery just proximal to the trifurcation. Knee Trifurcation: The posterior tibial and peroneal arteries are visualized but are diminutive. Soft Tissues: Lung bases: Clear. Portal, splenic and superior mesenteric veins: Unremarkable. Liver: Normal density. No measurable mass. Gallbladder and biliary tract: Cholelithiasis. There is no biliary ductal dilatation. Pancreas: Normal density, no abnormal calcifications or inflammatory process. Spleen: Normal. Kidneys: The right kidney shows normal enhancement. There is a nonobstructing 6 mm stone in the lowe r pole of the right kidney. There is again seen a stone or collections of stone in the proximal righ t ureter measuring 1.8 cm in length. There is severe proximal hydronephrosis. This has significantl y progressed compared to the prior examination. There is marked cortical thinning and lack of enhanc ement of the left renal cortex. There is soft tissue density seen in the dependent portion of the di lated renal collecting system. The largest such area measures 3.6 x 2.6 cm. This was not present on the prior examination. This may represent hemorrhage, infectious products or neoplasm. There is a left subcapsular fluid collection measuring up to 2 cm in thickness. This is new. There is also now inflammatory stranding around the left kidney. There is mild enhancement of the wall of the dilate left renal pelvis. There are nonobstructing calculi seen in the left kidney. The ureter distal to t he calcifications is mildly dilated with a mildly enhancing wall. Adrenal glands: There is a 4.0 x 4.4 cm hypodense right adrenal nodule. This is unchanged and likely reflects a adrenal adenoma. No follow-up is recommended. The left adrenal gland is unremarkable. Aorta: Abdominal portion non-dilated. Atherosclerotic calcification is present. There is a 3.6 x 3.3 cm infrarenal abdominal aortic aneurysm. No evidence of dissection. Bladder: The urinary bladder is incompletely distended limiting evaluation. In addition sideplate an d screws are seen across the symphysis pubis limiting evaluation. No gross urinary bladder abnormali ties are seen. Bowel: No obstruction or bowel wall thickening. The stomach is incompletely distended limiting evalua tion. There is no evidence of appendicitis. Peritoneal cavity: No ascites, collection or mesenteric inflammatory response. No free air. Bones: Within normal limits for the patient's age. Soft tissues: There is moderately severe fatty atrophy of the left semi tendinosis muscle. IMPRESSION: 1. There is again seen a calcification or collection of calcifications in the proximal left ureter ca using severe hydronephrosis. This has progressed since the prior examination. The left kidney is se verely atrophic. There is now a subcapsular fluid collection around the left kidney. This may be he morrhage. Infection should also be considered. 2. Aortic and iliac artery aneurysms as described above. 3. Extensive atherosclerotic calcification is seen in the runoff. 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 There is a patent left femoral graft in place. Please see the above discussion for com plete details. 4. Cholelithiasis. 5. Left nephrolithiasis. RADIATION DOSE DELIVERED: 1,450.05mGy.cm Total DLP 1,450.05mGy.cm Total DLP DATA REPOSITORY: All CT scans at this facility are submitted to the National Radiology Data Registry (NRDR) Dose Index Registry (DIR) with the [employer] (A[employer]). RADIATION OPTIMIZATION: All CT scans at this facility use at least one of these dose optimization te chniques: automated exposure control; mA and/or kV adjustment per patient size (includes targeted exa ms where dose is matched to clinical indication); or iterative reconstruction.
--- NOTE | 2023-11-30 22:10 | W.ED.GENAD ---
Discharge Plan Discharge Details Chief Complaint: FlankPain Primary Care Provider: Reno Hernandez ED Provider: Jane Le Home Meds and New Rx's Prescriptions: No Action Complex B-100 Tablet Extended Release 1 tab PO DAILY Ultra CoQ10 75 mg capsule 75 mg PO DAILY glipizide [Glucotrol XL] 5 mg tablet extended release 24hr 5 mg PO DAILY Qty: 90 3RF aspirin [Adult Low Dose Aspirin] 81 mg tablet,delayed release (DR/EC) 81 mg PO DAILY Qty: 1 0RF gentamicin 0.1 % cream 1 applic topical TID PRN (Reason: skin irritation) Qty: 30 0RF Eliquis 5 mg tablet 5 mg PO BID Qty: 180 3RF (DME) blood sugar diagnostic Strip 1 ea Miscellaneous DAILY Qty: 90 3RF Rx Instructions: test once/day atorvastatin 80 mg tablet 80 mg PO QHS Qty: 90 3RF tamsulosin [Flomax] 0.4 mg capsule 0.8 mg PO DAILY Qty: 180 3RF metformin 1,000 mg tablet 1,000 mg PO BID Qty: 180 4RF Rx Instructions: RX'D 12 lisinopril 40 mg tablet 40 mg PO DAILY Qty: 90 4RF metoprolol tartrate 50 mg tablet 50 mg PO BID Qty: 180 4RF Rx Instructions: RX'D 12 triamcinolone acetonide 0.1 % cream 1 applic topical BID Qty: 15 1RF Rx Instructions: To affected area at external ear magnesium 250 mg Tablet 250 mg PO DAILY ascorbic acid (vitamin C) [Vitamin C] 1,000 mg Tablet 1,000 mg PO DAILY HPI General Date/Time Provider Initiated Documentation: 11/30/23 21:32. HPI Narrative: Vijay is a 73-year-old male with history of T2DM, known AAA, obesity, HTN, HLD, and known left obstructive kidney stone who presents to the emergency department for evaluation of left lower back/left lower quadrant pain. Onset was this morning, he says it has been severe dull aching pain until he moves, at which point it is a sharp pain. He reports he has had fatigue all day, slept most of the day. Vomited x 2, no blood in emesis. Decrease PO intake today. He has had a few episodes of sweating today, no recorded fevers. Somewhat dark urine (normal per baseline according to ); no dysuria, hematuria, or foul smelling urine. Normal BM this morning, no black/tarry stools. No distal weakness or color change to extremities. 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 2PPD smoker. Blood sugars have been well controlled. Has a history of vertigo usually occurring in spring or fall, says symptoms started today and have been usual (dizziness with laying down), relieved with sitting up. Has a history of intermittant hematuria attributed to known stone. He is anticoagulated on eliquis. Physical exam remarkable for LUQ and LLQ tenderness with palpation. Patient is alert and oriented, in no acute distress. Tacky MM. Obese abdomen, soft, normoactive bowel sounds. No ecchymosis or rashes in the area of tenderness. No pulsatile masses, rigidity, or guarding. No CVA tenderness. Easy work of breathing, lung sounds clear bilaterally. Normal heart sounds. Dorsalis pedis pulses equal bilaterally. No focal neuro deficits noted. checker and packer II-XII intact as tested. No nystagmus. PERRL, EOMs intact. Moving upper extremities equally. D/dx includes but is not limited to: aortic dissection in patient with known AAA, nephrolithiasis, kidney or splenic infarct, bowel obstruction, diverticulitis, constipation, neoplasm I independently interpreted the following tests: CBC notable for mild leukocytosis with WBC 12.41, mild anemia unchanged from baseline. CMP reassuring, only mildly elevated BUN of 23, consistent with mild dehydration. Urine concentrated with moderate blood and 10-20 RBCs; not c/w UTI. Handoff report given to Dr Le, fabiano attending physician. CT read pending. Related Data Home Medications ?Medication ?Instructions ?Recorded ?Confirmed vitamin B complex (Complex B-100 1 tab PO DAILY 09/02/18 11/30/23 tablet,extended release) coenzyme Q10 75 mg capsule (Ultra 75 mg PO DAILY 10/07/19 11/30/23 CoQ10) aspirin 81 mg tablet,delayed 81 mg PO DAILY #1 tab 07/05/21 11/30/23 release (Adult Low Dose Aspirin) ascorbic acid (vitamin C) 1,000 mg 1,000 mg PO DAILY 07/31/21 11/30/23 tablet (Vitamin C) magnesium 250 mg tablet 250 mg PO DAILY 07/31/21 11/30/23 lisinopril 40 mg tablet 40 mg PO DAILY #90 tab-caps 04/11/23 11/30/23 metformin 1,000 mg tablet 1,000 mg PO BID #180 tab-caps 04/11/23 11/30/23 metoprolol tartrate 50 mg tablet 50 mg PO BID #180 tab-caps 04/11/23 11/30/23 glipizide 5 mg tablet, extended 5 mg PO DAILY #90 tab-caps 07/02/23 11/30/23 release 24 hr (Glucotrol XL) apixaban 5 mg tablet (Eliquis) 5 mg PO BID #180 tabs 11/26/23 11/30/23 atorvastatin 80 mg tablet 80 mg PO QHS #90 tabs 11/26/23 11/30/23 blood sugar diagnostic #90 strips 11/26/23 11/30/23 gentamicin 0.1 % topical cream 1 applic topical TID PRN skin 11/26/23 11/30/23 irritation #30 grams tamsulosin 0.4 mg capsule (Flomax) 0.8 mg (2 x 0.4 mg) PO DAILY #180 11/26/23 11/30/23 caps triamcinolone acetonide 0.1 % 1 applic topical BID #15 grams 11/27/23 11/30/23 topical cream Previous Rx's ?Medication ?Instructions ?Recorded aspirin 81 mg tablet,delayed 81 mg PO DAILY #1 tab 07/05/21 release (Adult Low Dose Aspirin) lisinopril 40 mg tablet 40 mg PO DAILY #90 tab-caps 04/11/23 metformin 1,000 mg tablet 1,000 mg PO BID #180 tab-caps 04/11/23 metoprolol tartrate 50 mg tablet 50 mg PO BID #180 tab-caps 04/11/23 glipizide 5 mg tablet, extended 5 mg PO DAILY #90 tab-caps 07/02/23 release 24 hr (Glucotrol XL) apixaban 5 mg tablet (Eliquis) 5 mg PO BID #180 tabs 11/26/23 atorvastatin 80 mg tablet 80 mg PO QHS #90 tabs 11/26/23 blood sugar diagnostic #90 strips 11/26/23 gentamicin 0.1 % topical cream 1 applic topical TID PRN skin 11/26/23 irritation #30 grams tamsulosin 0.4 mg capsule (Flomax) 0.8 mg (2 x 0.4 mg) PO DAILY #180 11/26/23 caps triamcinolone acetonide 0.1 % 1 applic topical BID #15 grams 11/27/23 topical cream Allergies Allergy/AdvReac Type Severity Reaction Status Date / Time No Known Allergies Allergy Verified 11/30/23 21:40 General Stated Complaint: FlankPain KENNEDI: 3 Review of Systems Narrative: see HPI Exam Const General: cooperative, healthy appearing, comfortable, no acute distress and well developed Nutritional Appearance: obese Orientation: alert and oriented x3 HENMT Head: normal to inspection General nose exam: external nose normal Face and sinus: dry mucous membranes Resp Effort & Inspection: normal respiratory effort and able to speak in complete sentences Auscultation: clear to auscultation bilaterally Cardio Rate: regular rate Rhythm: regular rhythm Pulses: radial pulses present, posterior tibial pulses present and dorsalis pedis present GI Inspection: normal to inspection, non-distended and obesity Palpation: soft, not firm, no guarding, no pulsatile masses, not rigid and tender in the LLQ and in the LUQ Auscultation: normal bowel sounds Back/Spine/Pelvis Back: no CVA tenderness Skin General skin exam: no rashes or lesions noted Neuro General: patient alert, patient oriented x3, tone normal, moves all extremities, no focal motor deficits and CN's II-XI intact bilaterally Cranial Nerves: PERRL, EOM intact bilaterally, no nystagmus and facial strength normal Cognition: normal cognition Speech: speech normal Gait: gait assisted (cane) Motor: muscle tone normal throughout Course Vital Signs Vital signs: Vital Signs Temperature 36.6 C 11/30/23 21:36 Pulse 94 H 11/30/23 21:36 Respiratory Rate 16 11/30/23 21:36 Blood Pressure 129/70 11/30/23 21:36 Pulse Oximetry 95 11/30/23 21:36 Temperature 36.6 C 11/30/23 21:36 Temperature Source Temporal Artery Scan 11/30/23 21:36 Pulse 94 H 11/30/23 21:36 Respiratory Rate 16 11/30/23 21:36 Respiratory Effort Normal 11/30/23 21:41 Blood Pressure 129/70 11/30/23 21:36 Pulse Oximetry 95 11/30/23 21:36 Oxygen Delivery Method Room Air 11/30/23 21:36 Oxygen Flow Rate 0 11/30/23 21:36 Pain Level 10 11/30/23 21:36 Medical Decision Making Quality:SDOH Health Related Social Needs: No Data to Display PFSH All Active Problems (Updated 11/26/23 @ 13:30 by Reno Hernandez MD) AAA (abdominal aortic aneurysm) (Acute) Blood in urine (Acute) Morbid obesity (Acute) Lesion of nose (Acute) Preventative health care (Acute) Tobacco abuse (Acute) Type 2 diabetes mellitus with diabetic neuropathy, unspecified (Acute) Spinal stenosis of lumbosacral region (Chronic 08/09/17) Obstructive sleep apnea syndrome (Chronic) Obesity (Chronic) Kidney stone (Chronic) Severe Left obstru. uropathy 05/[place] 2 cm stone at Left UVJ Hyperlipidemia (Chronic) Gastritis (Chronic 12/04/13) esophagitis on EGD 11/24 Fracture of pelvis (Chronic) Remote-fall from ladder status post surgery Essential hypertension (Chronic 01/12/13) Diabetes mellitus (Chronic 07/16/12) Colonoscopy refused (Chronic 10/21/15) Benign prostatic hyperplasia (Chronic 01/18/12) AAA (abdominal aortic aneurysm) without rupture (Chronic) 3.9cm 05/30 Peripheral vascular disease (Chronic) 10/2018-right iliofemoral endarterectomy 08/2019 left iliofemoral, SFA, profunda endarterectomy with patch angioplasty and left FSA-posterior tibial bypass [facility] vascular surgery Basal cell carcinoma (BCC) (Acute) Anemia (Chronic) 2019-, mild Amputated toe (Acute) 2018-amputation left fifth digit-osteomyelitis, [facility] vascular surgery Type 2 diabetes mellitus with diabetic neuropathy, unspecified (Acute) Left greater than right status post infection and fifth toe amputation Nicotine dependence (Acute) 06/2021-about 2 pack/day probable 80+ years pack history Patient declined CT lung-chest screen CAD (coronary artery disease) (Chronic) 2018-modest three-vessel vascular disease per catheterization at [facility]-medical management Eczema of external ear (Acute) Adrenal nodule (Acute) 03/2021-per CT report from [place], 4.4 cm nodule on left that was stable at their institution-consistent with benign lesion Fatty liver (Acute) 03/2021-fatty liver per CT in [place] Medical History (Updated 11/26/23 @ 13:30 by Reno Hernandez MD) Conjunctivitis (R) EYE currently being treated with abx, Madisyn aware. 07/14/21 Surgical History (Updated 07/31/21 @ 12:17 by Anthony Mars MD) Hx of vein stripping Hx of cataract surgery History of surgery on lower extremity Remote left leg surgery-to repair fracture after fall from ladder, also involved pelvic and low back fracture EGD - [facility] (10/28/13) Social History Smoking/Tobacco Use Status: Current every day Tobacco Type: cigarettes Smoking risk assessment performed?: Yes Alcohol Intake: former Drug use: Daily Substance use type: marijuana Details: last marijuanas use 07/30/21 Do you feel safe at home: Yes Do you feel safe in your relationship?: Yes Sign Out Sign Out Data: Sign Out Comment: 73 y/o male with L lower back/LLQ pain w/ N/V since this morning. Multiple comorbidities, incl known AAA, HTN, HLD, T2DM, and vascular disease. Awaiting CT read. Has been given gentle IV fluids for mild dehydration in setting of concern for serious abdominal pathology. at bedside. Last updated by Winsome Jimenes at 11/30/23 23:21
[2023-11-30 22:25] LABS: Abs Immature Grans 0.04 10^3/uL (0.0-0.06); Absolute Eosinophil Count 0.01 10^3/uL (0.0-0.7); Absolute Lymphocyte Count 0.79 10^3/uL (1.2-3.4); Absolute Monocyte Count 0.91 10^3/uL (0.1-0.8); Basophils % 0.2 %; Eosinophils % 0.1 %; HCT 34.8 % (40.0-50.0); HGB 11.4 g/dL (13.5-17.5); Immature Grans % 0.3 %; Lymphocytes % 6.4 %; MCH 27.1 pg (27.0-33.0); MCHC 32.8 % (32.0-36.0); MCV 83 fL (80-95); Monocytes % 7.3 %; Neutrophils % 85.7 %; Platelet Count 327 10^3/uL (130-400); RBC 4.21 10^6/uL (4.36-5.78); WBC 12.41 10^3/uL (4.4-10.8)
[2023-11-30 22:26] LABS: Absolute Basophil Count 0.02 10^3/uL (0.0-0.2); Absolute Neutrophil Count 10.64 10^3/uL (1.2-6.7)
[2023-11-30] MEDS: Normal Saline 500 ML IV (22:29)
[2023-11-30 22:37] LABS: Bilirubin Small (Negative); Blood Moderate (Negative); Clarity Clear (Clear); Glucose Negative (Negative); Ketones Trace mg/dL (Negative); Leukocyte Esterase Negative (Negative); Nitrite Negative (Negative); Specific Gravity >= 1.030 (1.005-1.025); Urobilinogen 0.2 mg/dL (Up to 0.2); pH 5.5 (5-8)
[2023-11-30 22:41] LABS: ALT 30 U/L (16-63); AST 23 U/L (15-37); Alkaline Phosphatase 65 U/L (46-116); BUN 23 mg/dL (7-18); Bilirubin, Total 0.91 mg/dL (0.2-1.0); CREATININE 1.1 mg/dL (0.70-1.30); Calcium 9.2 mg/dL (8.5-10.1); Chloride 104 mmol/L (98-107); Estimated GFR 70.88 (mL/min/1.73m2); Glucose 179 mg/dL (74-106); Potassium 4.4 mmol/L (3.5-5.1); Sodium 138 mmol/L (136-145); Total Protein 7.3 g/dL (6.4-8.2)
[2023-11-30 22:44] LABS: Bacteria Few HPF (Negative); C & S Indicated? No; Casts Negative LPF (Negative); Crystals Negative HPF (Negative); Epithelial Cells Few HPF (Negative); Mucus Negative (Negative)
[2023-11-30] MEDS: Normal Saline - Diluent 50 ML VIAL IJ ×2 (22:55→23:00)
[2023-11-30] MEDS: Omnipaque 350 MG/ML 100 ML BTL IJ (22:55)
[2023-11-30] MEDS: Omnipaque 350 MG/ML 50 ML BTL IJ (22:57)
[2023-11-30 23:15] LABS: Procalcitonin 0.2 ng/mL
--- NOTE | 2023-11-30 23:25 | ED.PROG_ITS ---
Date of service: 11/30/23 Time of Service: 23:25 Medical Decision Making This patient was signed out to me. Please see previous notes for H&P and initial eval. In brief, 73yo M presenting with low left sided flank pain/abdominal pain with associated N/V. Hx HTN, DM, PVD, CAD, AAA, hematuria. CBC & CMP without actionable abnormalities, procal normal, UA with hematuria not infected. Signed out pending CTA aorta/abd/pelvis read. CT as below, discussed with reading radiologist Dr. Zamora; large left UPJ stone remains in place now with worsening severe left hydronephrosis, new subcapsular collection concerning for hemmoraghe as well as some likely blood in the perinephric space. [facility] urology consulted; discussed with Dr. Lovelace who advised holding eliquis and trending Hg for 48 hours. No emergent or urgent interventions indicated, pt not accepted in transfer. CT findings and urology recommendations discussed with patient; he is hesitant to stay in the hospital however his pain remains spastic and significant and based on this he does agree to hospital stay. Discussed with [facility] hospitalist Dr. Madrigal; given pt with urologic problem and no urology here at [facility] today requested I reach out to other institutions for possible transfer. Per schedule, Dr. Christian from [facility] urology expected to be available on Saturday. Spoke with [facility]; urology not accepting patients at this time. Dr. Madrigal updated; pt accepted to medicine service for observation. Bridging orders placed at his request. Awaiting transfer to the floor. Imaging Data Radiologic Study: Imaging: CT Scan Radiologist's impression: IMPRESSION: 1. 20 x 12 mm calculus in the left ureteropelvic junction similar to prior with worsened, chronic appearing severe left hydronephrosis. 2. The left renal parenchyma appears extremely atrophic; new broad left renal subcapsular mixed density collection probably containing a combination of blood products and possibly urine; small left perinephric space blood products appear non collected. 3. Mass effect on left colonic loops , mild left colitis. 4. No acute appearing arterial pathology. 5. Additional findings as described. Lab Data Lab results reviewed: Yes I reviewed the patient's lab results. Labs: Laboratory Tests Range/Units 11/30/23 11/30/23 21:59 22:28 WBC (4.4-10.8) 10^3/uL 12.41 H RBC (4.36-5.78) 10^6/uL 4.21 L Hgb (13.5-17.5) g/dL 11.4 L Hct (40.0-50.0) % 34.8 L MCV (80-95) fL 83 MCH (27.0-33.0) pg 27.1 MCHC (32.0-36.0) % 32.8 RDW (11.8-14.1) % 19.0 H Plt Count (130-400) 10^3/uL 327 MPV (8.0-11.0) fL 9.0 Immature Gran % % 0.3 Neutrophils % % 85.7 Lymphocytes % % 6.4 Monocytes % % 7.3 Eosinophils % % 0.1 Basophils % % 0.2 Nucleated RBC % (0.0-0.3) % 0.0 Absolute Neutrophils (1.2-6.7) 10^3/uL 10.64 H Absolute Lymphocytes (1.2-3.4) 10^3/uL 0.79 L Absolute Monocytes (0.1-0.8) 10^3/uL 0.91 H Absolute Eosinophils (0.0-0.7) 10^3/uL 0.01 Absolute Basophils (0.0-0.2) 10^3/uL 0.02 Sodium (136-145) mmol/L 138 Potassium (3.5-5.1) mmol/L 4.4 Chloride (98-107) mmol/L 104 Carbon Dioxide (21.0-32.0) mmol/L 23.0 Anion Gap (3-11) mmol/L 11.0 BUN (7-18) mg/dL 23 H Creatinine (0.70-1.30) mg/dL 1.1 Est GFR (CKD-EPI 2020) (mL/min/1.73m2) 70.88 Glucose (74-106) mg/dL 179 H Calcium (8.5-10.1) mg/dL 9.2 Total Bilirubin (0.2-1.0) mg/dL 0.91 AST (15-37) U/L 23 ALT (16-63) U/L 30 Alkaline Phosphatase (46-116) U/L 65 Total Protein (6.4-8.2) g/dL 7.3 Albumin (3.4-5.0) g/dL 3.0 L Procalcitonin ng/mL 0.2 Urine Color (Yellow) Yellow Urine Clarity (Clear) Clear Urine pH (5-8) 5.5 Ur Specific [place] (1.005-1.025) >= 1.030 H Urine Protein (Neg-Trace) mg/dL 100 H Urine Ketones (Negative) mg/dL Trace H Urine Blood (Negative) Moderate H Urine Nitrite (Negative) Negative Urine Bilirubin (Negative) Small H Urine Urobilinogen (Up to 0.2) mg/dL 0.2 Ur Leukocyte Esterase (Negative) Negative Urine RBC (0-2) HPF 10-20 H Urine WBC (0-5) HPF 3-5 Ur Epithelial Cells (Negative) HPF Few Urine Crystals (Negative) HPF Negative Urine Bacteria (Negative) HPF Few Urine Casts (Negative) LPF Negative Urine Mucus (Negative) Negative Ur Culture Indicated? No Urine Glucose (Negative) mg/dL Negative Quality:SDOH Health Related Social Needs: No Data to Display Sign Out Sign Out Data: Sign Out Comment: 73 y/o male with L lower back/LLQ pain w/ N/V since this morning. Multiple comorbidities, incl known AAA, HTN, HLD, T2DM, and vascular disease. Awaiting CT read. Has been given gentle IV fluids for mild dehydration in setting of concern for serious abdominal pathology. at bedside. Last updated by Winsome Jimenes at 11/30/23 23:21 Discharge Plan Discharge Details Chief Complaint: FlankPain Admit Date/Time: 12/01/23 03:14 Admit Provider: Michael Madrigal Attending Provider: Michael Madrigal Primary Care Provider: Reno Hernandez ED Provider: Jane Le
[2023-12-01] VITALS (29 sets, daily range): BP systolic 100–136; BP diastolic 54–61; PULSE 66–93; RESP 14–35; TEMP 36.1–36.2; O2SAT 87–96
--- NOTE | 2023-12-01 00:45 | DI.VRAD_ITS ---
Addendum created by Radha Zamora MD on 12/01/2023 12:45:46 AM EDT: This report contains findings that may be critical to patient care. The pertinent findings were communicated via telephone with Dr Le at 00:44 EDT on 12/01/2023. The findings were acknowledged and understood. Initial report created on 12/01/2023 12:44:33 AM EDT: PROCEDURE INFORMATION: Exam: CTA Abdominal Aorta and Bilateral Lower Extremities (Run-off) With Contrast Exam date and time: 11/30/2023 22:48 Age: 73 years old Clinical indication: Other: L flank/lower abd pain w n/v; Prior surgery; Surgery date: 6+ months; Surgery type: Pelvis and ankle hardware after fractures. TECHNIQUE: Imaging protocol: Computed tomographic angiography of the of the abdominal aorta, pelvis and bilateral lower extremities with contrast. 3D rendering (Not supervised by radiologist): MIP and/or 3D reconstructed images were created by the technologist. Contrast material: OMNIPAQUE 350; Contrast volume: 150 ml; Contrast route: INTRAVENOUS (IV); COMPARISON: CT ABDOMEN PELVIS WO/W 10/08/2019 10:45 FINDINGS: Aorta: Chronic minor dilation of the infrarenal aorta is similar. Celiac trunk and mesenteric arteries: Atherosclerosis without occlusion or significant stenosis. Renal arteries: The left renal artery appears chronically at least moderately stenotic without a focal filling defect. Right renal arteries patent. Lower extremity arteries: The chronic fusiform aneurysms of the bilateral iliac systems are similar. Presumed endarterectomy changes in common femoral arteries, patent. The right common femoral artery is severely atherosclerotic and occluded. Opacification beyond the adductor hiatus from collaterals. Moderate multifocal popliteal artery stenosis, severe below the knee atherosclerosis with patent but extremely diminutive three-vessel runoff distally. On the left there is a femoral graft which is patent. [place] SFA is mostly occluded. Diminutive highly atherosclerotic popliteal artery, diminutive posterior tibial and peroneal arteries are patent distally, patent 2 vessel runoff on the left. Liver: Fatty liver with no mass lesions. Gallbladder and biliary ducts: Cholelithiasis. No ductal dilation. Pancreas: No mass. No ductal dilation. Spleen: No splenomegaly. Adrenal glands: Normal. No mass. Kidneys and ureters: No right renal mass or hydronephrosis. Nonobstructive subcentimeter right nephrolithiasis. 20 x 12 mm calculus in the left ureteropelvic junction similar to prior with worsened, severe left hydronephrosis. The left renal parenchyma appears extremely atrophic; there is a new broad left subcapsular mixed density collection extending across the length of the kidney, maximal medial-lateral depth about 3 cm, with small mixed density products in the left perinephric space. The left renal pelvis and upper ureter appear thickened and inflamed. There could be some blood products in the left ureter. Mass effect on left colonic loops due to the left renal and perinephric pathology, mild wall thickening of descending colon. Stomach and bowel: No focal pathology in the small bowel. Appendix: No evidence of appendicitis. Urinary bladder: Unremarkable. No mass. Reproductive: Unremarkable as visualized. Intraperitoneal space: No free air. No significant fluid collection. Lymph nodes: No lymphadenopathy. Bones/joints: No acute fracture. No dislocation. Chronic posttraumatic and surgical changes in the distal left tibia. Chronic postsurgical and posttraumatic changes in the pelvis. Chronic degenerative changes in the lumbar spine. Soft tissues: Generalized swelling throughout the left foot and ankle as well as calf without a focal fluid collection, dependent swelling in the thigh without a focal fluid collection.. IMPRESSION: 1. 20 x 12 mm calculus in the left ureteropelvic junction similar to prior with worsened, chronic appearing severe left hydronephrosis. 2. The left renal parenchyma appears extremely atrophic; new broad left renal subcapsular mixed density collection probably containing a combination of blood products and possibly urine; small left perinephric space blood products appear non collected. 3. Mass effect on left colonic loops , mild left colitis. 4. No acute appearing arterial pathology. 5. Additional findings as described. Dictated and Authenticated by: Radha Zamora MD. Ordering:RACHEL Schumacher MD
[2023-12-01] MEDS: Ketorolac 15 MG/ML VIAL IVP (02:04)
[2023-12-01] MEDS: ACETAMINOPHEN 1,000 MG/100 ML BTL 400 MG IVPB (02:04)
[2023-12-01] MEDS: Nicotine 21 MG/24 HR PATCH TD ×2 (03:45→09:45)
[2023-12-01] MEDS: MORPHine 4 MG/ML SYR IM (03:45)
[2023-12-01] MEDS: Nicotine 4 MG GUM CH ×2 (03:45→09:45)
[2023-12-01] MEDS: Ondansetron 4 MG/2 ML VIAL IVP (03:46)
--- NOTE | 2023-12-01 04:21 | W.PC.ACHO ---
Registration Status: Primary Language: Preferred Language: ED Information & Data Chief Complaint FlankPain 11/30/23 22:18 Triage Note Pt c/o L flank pain that 11/30/23 21:36 started this morning at 0830 . Pt states he was sitting on the toilet when the pain started. Pt has a hx of kidney stones. Pt states he only has one kidney that has a large stone. Denies urinary s/s. Endorses n/v x 2. Pt took 1000mg tylenol at 1430. Pt states pain radiated around to his LLQ earlier but states that has since subsided. Medical / Surgical History (Last Reviewed 07/31/21 @ 10:06 by Alis Arshad RN) Conjunctivitis (Last Reviewed 07/31/21 @ 10:06 by Alis Arshad RN) Hx of vein stripping Hx of cataract surgery History of surgery on lower extremity EGD - MAC (10/28/13) Most Recent Vital Signs Temperature 36.6 C 11/30/23 21:36 Temperature Source Temporal Artery Scan 11/30/23 21:36 Pulse 87 12/01/23 03:36 Pulse 80 12/01/23 03:00 Respiratory Rate 18 12/01/23 03:00 Respiratory Effort Normal 11/30/23 21:41 Blood Pressure 136/61 12/01/23 03:36 Blood Pressure Mean 82 12/01/23 03:36 Pulse Oximetry 90 L 12/01/23 03:40 Oxygen Delivery Method Room Air 11/30/23 21:36 Oxygen Flow Rate 0 11/30/23 21:36 Pain Level 2 12/01/23 03:45 Allergies No Known Allergies Allergy (Verified 11/30/23 21:40) Active Medications Generic Name Dose Route Start Last Admin Trade Name Freq PRN Reason Stop Dose Admin Iohexol 100 ml 11/30/23 23:00 11/30/23 22:55 Omnipaque 350 Mg/Ml 100 Ml Btl IJ 12/30/23 23:59 100 ml DIRECTED JOHN Administration Iohexol 50 ml 11/30/23 23:00 11/30/23 22:57 Omnipaque 350 Mg/Ml 50 Ml Btl IJ 12/30/23 23:59 50 ml DIRECTED JOHN Administration Morphine Sulfate 4 mg 12/01/23 03:13 12/01/23 03:45 Morphine 4 Mg/Ml Syr IM 4 mg Q2H PRN PRN Administration Nicotine 4 mg 12/01/23 03:34 12/01/23 03:45 Nicotine 4 Mg Gum CH 4 mg Q1H PRN PRN Administration Sodium Chloride 50 ml 11/30/23 23:00 11/30/23 23:00 Normal Saline - Diluent 50 Ml Vial IJ 50 ml .FOR DI USE JOHN Administration IV IV Catheter Type [Left Saline Lock Antecubital] IV Catheter Gauge [Left 18 Antecubital] Diet Orders Category Date Time Status DIET [Regular/Normal] [DIET] Nutrition 12/01/23 Breakfast Active Diagnostics 11/30/23 11/30/23 Range/Units 22:28 21:59 WBC 12.41 H (4.4-10.8) 10^3/uL RBC 4.21 L (4.36-5.78) 10^6/uL Hgb 11.4 L (13.5-17.5) g/dL Hct 34.8 L (40.0-50.0) % MCV 83 (80-95) fL MCH 27.1 (27.0-33.0) pg MCHC 32.8 (32.0-36.0) % RDW 19.0 H (11.8-14.1) % Plt Count 327 (130-400) 10^3/uL MPV 9.0 (8.0-11.0) fL Immature Gran % 0.3 % Neutrophils % 85.7 % Lymphocytes % 6.4 % Monocytes % 7.3 % Eosinophils % 0.1 % Basophils % 0.2 % Nucleated RBC % 0.0 (0.0-0.3) % Absolute Neutrophils 10.64 H (1.2-6.7) 10^3/uL Absolute Lymphocytes 0.79 L (1.2-3.4) 10^3/uL Absolute Monocytes 0.91 H (0.1-0.8) 10^3/uL Absolute Eosinophils 0.01 (0.0-0.7) 10^3/uL Absolute Basophils 0.02 (0.0-0.2) 10^3/uL Sodium 138 (136-145) mmol/L Potassium 4.4 (3.5-5.1) mmol/L Chloride 104 (98-107) mmol/L Carbon Dioxide 23.0 (21.0-32.0) mmol/L Anion Gap 11.0 (3-11) mmol/L BUN 23 H (7-18) mg/dL Creatinine 1.1 (0.70-1.30) mg/dL Est GFR (CKD-EPI 2020) 70.88 (mL/min/1.73m2) Glucose 179 H (74-106) mg/dL Calcium 9.2 (8.5-10.1) mg/dL Total Bilirubin 0.91 (0.2-1.0) mg/dL AST 23 (15-37) U/L ALT 30 (16-63) U/L Alkaline Phosphatase 65 (46-116) U/L Total Protein 7.3 (6.4-8.2) g/dL Albumin 3.0 L (3.4-5.0) g/dL Procalcitonin 0.2 ng/mL Urine Color Yellow (Yellow) Urine Clarity Clear (Clear) Urine pH 5.5 (5-8) Ur Specific [place] >= 1.030 H (1.005-1.025) Urine Protein 100 H (Neg-Trace) mg/dL Urine Ketones Trace H (Negative) mg/dL Urine Blood Moderate H (Negative) Urine Nitrite Negative (Negative) Urine Bilirubin Small H (Negative) Urine Urobilinogen 0.2 (Up to 0.2) mg/dL Ur Leukocyte Esterase Negative (Negative) Urine RBC 10-20 H (0-2) HPF Urine WBC 3-5 (0-5) HPF Ur Epithelial Cells Few (Negative) HPF Urine Crystals Negative (Negative) HPF Urine Bacteria Few (Negative) HPF Urine Casts Negative (Negative) LPF Urine Mucus Negative (Negative) Ur Culture Indicated? No Urine Glucose Negative (Negative) mg/dL Intake and Output - 24 Hour Total 11/30/23 21:31 thru 12/01/23 02:30 Intake Total 600 Balance 600 Weight 136.078 kg Intake: IV 600 Other: Comment post void residual Falls Risk Assessment History of Falls No History 11/30/23 21:41 Contributing Factors Impairments 11/30/23 21:41 Ambulatory Aids Uses ambulatory device + 11/30/23 21:41 Tubes/Lines With any additional score 11/30/23 21:41 Gait Evaluation W/any additional score 11/30/23 21:41 Cognition No cognitive impairment 11/30/23 21:41 Fall Total Score 73 11/30/23 21:41 Level of Risk High Risk 11/30/23 21:41 v v v v v v v v v Sending and/or Receiving Nurses: Please use comment section below to note any information pertinent to the patient hand-off not included above. Information / Comments: Pt arrived to the ED c/o L flank pain. Known stone to L kidney as well as a hx of multiple kidney issues. Pt received a CT, was noted to have blood around his L kidney so eliquis was put on hold and needs serial hgbs. Pt recieved 15 mg toradol d/t opioid refusal. Also received IV contrast for CT. Decreased UO, about 20 mls/ void. Also recievd tylenol 1000mg IV, Morphine 4 mg IV, and Zofran 4 mg IV. Report received from: Anthony Aguilar RN
--- NOTE | 2023-12-01 06:38 | HPE_ITS ---
Date of service: 12/01/23 Time of Service: 06:39 Assessment and Plan Assessment and plan (1) Closed hematoma of left kidney: Status: Acute Assessment and plan: This is a 73-year-old gentleman with multiple medical problems chronically on Eliquis for revascularization of his lower extremities in 2019 presenting with acute left flank pain without trauma. He does have an obstructive uropathy with large kidney stone on the left with poorly functioning kidney chronically but this appears to have worsened by CTA done in the ED upon presentation. He also has associated perinephric hematoma which appears spontaneous. Urology recommends observation with repeat hemoglobins and if stable after 48 hours of Eliquis being held, restart Eliquis and follow-up urology and vascular surgery for long-term care. No acute surgical intervention is indicated. Patient is being hospitalized to observe his CBC for acute anemia which is unlikely unless there is rupture. His pain is severe enough to require IV morphine and he wishes to transition to oral therapy to return home hopefully to get his house ready to return to [place] within the next week. He will follow-up with urology in [place]. He remains a full code. Qualifiers: Encounter type: initial encounter Qualified Code(s): S37.012A - Minor contusion of left kidney, initial encounter (2) Anemia: Status: Chronic Assessment and plan: Chronic and stable with patient on Eliquis since 2019 after his vascular surgery at [facility] [place]. Qualifiers: Anemia type: other cause Other causes of anemia: chronic disease, other Qualified Code(s): D63.8 - Anemia in other chronic diseases classified elsewhere (3) Kidney stone: Status: Chronic Assessment and plan: Patient has chronic large left kidney stone with obstruction and obstructive uropathy with chronic hydronephrosis and decreased function of left kidney. This appears to be acutely worsening with associated hematoma. (4) AAA (abdominal aortic aneurysm) without rupture: Status: Chronic Assessment and plan: Stable with associated iliac aneurysm. Qualifiers: Abdominal aorta location: infrarenal aorta Qualified Code(s): I71.43 - Infrarenal abdominal aortic aneurysm, without rupture (5) Type 2 diabetes mellitus with diabetic neuropathy, unspecified: Status: Chronic Assessment and plan: On oral treatment with metformin to be held 48 hours after CTA dye load. Continue glipizide. Qualifiers: Diabetes mellitus senior living insulin use: without senior living use Q ualified Code(s): E11.40 - Type 2 diabetes mellitus with diabetic neuropathy, unspecified (6) Spinal stenosis of lumbosacral region: Status: Chronic Assessment and plan: With low back pain initially with presentation of left flank pain associated with left worsening hydronephrosis and now hematoma. This appears stable with chronic pain management using Tylenol only. (7) Peripheral vascular disease: Status: Chronic Assessment and plan: Status post revascularization surgery on the right 2019 and then repeated in 2019. He has a history of AAA and states that he did damage his legs with a fall from a roof in 1998. (8) CAD (coronary artery disease): Status: Chronic Assessment and plan: Three-vessel disease seen by cardiac hesitation in 2019 with no interventions. Qualifiers: Associated angina: without angina Coronary Disease-Associated Artery/Lesion type: [place] artery [place] vs. transplanted heart: [place] heart Qualified Code(s): I25.10 - Atherosclerotic heart disease of [place] coronary artery without angina pectoris (9) Hyperlipidemia: Status: Chronic Assessment and plan: Continue outpatient medical therapy. Qualifiers: Hyperlipidemia type: mixed hyperlipidemia Qualified Code(s): E78.2 - Mixed hyperlipidemia (10) Tobacco abuse: Status: Chronic Assessment and plan: Nicotine topical patch for now with patient not planning to quit smoking. He smoked a pack per day. (11) Morbid obesity: Status: Chronic Assessment and plan: Contributing to his general health with patient having RIANA as well. Poor prognosis for change. 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 He became disabled eventually after that event. He now lives in [place] during the winter and [place] in [place]. He does have a history of renal lithiasis with gross hematuria by history since he has had stones after his accidenta . The last 6 months his gross materia has stopped and has had no recurrent symptomatic kidney stones though he does have a chronic large stone on his left which has caused postobstructive nephropathy and a decreased functioning kidney which has been there since he was diagnosed with kidney stones. Overall his renal function is normal with his right kidney fully functioning. He also has peripheral vascular disease prompting revascularization of his right lower extremity and 2019 and that is left in 2019. He has a nonoperable and stable AAA. He is on Eliquis after his revascularization because of the extent of the disease. He continues to have some difficulty with his left lower extremity status post amputation of his left fifth toe and edema of his left lower provide compared to right. He presented to the ED with gradual onset over the last couple days of left flank pain initially began in his lower back and focalizing his left flank upon presentation. Reimaging of his abdomen with CTA revealed is stable AAA involving the iliac artery with narrowing of the left renal artery as well as worsening of the hydronephrosis of the left kidney with a large kidney stone and apparent hemorrhage into the capsule of the kidney. There is a large obstructing stone at the proximal left ureter and a smaller stone which is nonobstructive in the right kidney pole. Patient's pain was the main reason for presentation and he did receive Tylenol and Toradol in the ED with some relief. He is hesitant to take narcotics for his discomfort but is open to trialing tramadol which has worked in the past with his renal lithiasis. He does have constipation with narcotics. Urology was consulted about the patient's acute worsening of hydronephrosis and hematoma on Eliquis with recommendation to hold Eliquis for 48 hours and observe for anemia. They did not recommend reimaging or surgical intervention at this time. Patient does see urology in [place] and will be following up with his urologist when returning to [place] in the next week he mostly wants to have pain control and able to move. His multiple medical problems have progressed during his disability with obesity, 2 pack-a-day tobacco use with some respiratory symptoms but not on inhalers and hypertension with diabetes and sleep apnea. He has risk for cardiovascular disease with three-vessel disease seen in 2019 when he had his vascular surgery. He was anxious about returning home to enable him to move back to [place]. He will be driving to [place]. He is advised that he should set up close follow-up with his urologist in [place] before traveling. If he has continued pain he may want to seek urological services at [facility] where he has been seen in the past. He is agreeable to stay for lab follow-up to ensure no progressive anemia. He understands he will need to hold his Eliquis for 48 hours and after his imaging he will need to hold his metformin for 48 hours. He is a full code. Review of Systems Narrative: 13 point review of systems otherwise unrevealing or stable. [facility] All Active Problems (Updated 12/01/23 @ 06:48 by Michael Madrigal) Left leg pain (Acute) Closed hematoma of left kidney (Acute) AAA (abdominal aortic aneurysm) (Acute) Blood in urine (Acute) Morbid obesity (Chronic) Lesion of nose (Acute) Preventative health care (Acute) Tobacco abuse (Chronic) Type 2 diabetes mellitus with diabetic neuropathy, unspecified (Chronic) Spinal stenosis of lumbosacral region (Chronic 08/09/17) Obstructive sleep apnea syndrome (Chronic) Obesity (Chronic) Kidney stone (Chronic) Severe Left obstru. uropathy 05/30 [place] 2 cm stone at Left [facility] Hyperlipidemia (Chronic) Gastritis (Chronic 12/04/13) esophagitis on EGD 11/24 Fracture of pelvis (Chronic) Remote-fall from ladder status post surgery Essential hypertension (Chronic 01/12/13) Diabetes mellitus (Chronic 07/16/12) Colonoscopy refused (Chronic 10/21/15) Benign prostatic hyperplasia (Chronic 01/18/12) AAA (abdominal aortic aneurysm) without rupture (Chronic) 3.9cm 05/30 Peripheral vascular disease (Chronic) 10/2018-right iliofemoral endarterectomy 08/2019 left iliofemoral, SFA, profunda endarterectomy with patch angioplasty and left FSA-posterior tibial bypass [facility] vascular surgery Basal cell carcinoma (BCC) (Acute) Anemia (Chronic) 2019-, mild Amputated toe (Acute) 2018-amputation left fifth digit-osteomyelitis, [facility] vascular surgery Type 2 diabetes mellitus with diabetic neuropathy, unspecified (Acute) Left greater than right status post infection and fifth toe amputation Nicotine dependence (Acute) 06/2021-about 2 pack/day probable 80+ years pack history Patient declined CT lung-chest screen CAD (coronary artery disease) (Chronic) 2018-modest three-vessel vascular disease per catheterization at [facility]-medical management Eczema of external ear (Acute) Adrenal nodule (Acute) 03/2021-per CT report from [place], 4.4 cm nodule on left that was stable at their institution-consistent with benign lesion Fatty liver (Acute) 03/2021-fatty liver per CT in [place] Medical History Conjunctivitis (R) EYE currently being treated with abx, Madisyn aware. 07/14/21 Surgical History Hx of vein stripping Hx of cataract surgery History of surgery on lower extremity Remote left leg surgery-to repair fracture after fall from ladder, also involved pelvic and low back fracture EGD - [facility] (10/28/13) Social History Smoking/Tobacco Use Status: Current every day Tobacco Type: cigarettes Smoking risk assessment performed?: Yes Alcohol Intake: former Drug use: Daily Substance use type: marijuana Details: last marijuanas use 07/30/21 Housing: house Do you feel safe at home: Yes Do you feel safe in your relationship?: Yes Meds Allergies and Home Medications Allergies Allergy/AdvReac Type Severity Reaction Status Date / Time No Known Allergies Allergy Verified 11/30/23 21:40 Home Medications ?Medication ?Instructions ?Recorded ?Confirmed ?Type vitamin B complex (Complex B-100 1 tab PO DAILY 09/02/18 11/30/23 History tablet,extended release) coenzyme Q10 75 mg capsule (Ultra 75 mg PO DAILY 10/07/19 11/30/23 History CoQ10) aspirin 81 mg tablet,delayed 81 mg PO DAILY #1 tab 07/05/21 11/30/23 Rx release (Adult Low Dose Aspirin) ascorbic acid (vitamin C) 1,000 mg 1,000 mg PO DAILY 07/31/21 11/30/23 History tablet (Vitamin C) magnesium 250 mg tablet 250 mg PO DAILY 07/31/21 11/30/23 History lisinopril 40 mg tablet 40 mg PO DAILY #90 tab-caps 04/11/23 11/30/23 Rx metformin 1,000 mg tablet 1,000 mg PO BID #180 tab-caps 04/11/23 11/30/23 Rx metoprolol tartrate 50 mg tablet 50 mg PO BID #180 tab-caps 04/11/23 11/30/23 Rx glipizide 5 mg tablet, extended 5 mg PO DAILY #90 tab-caps 07/02/23 11/30/23 Rx release 24 hr (Glucotrol XL) apixaban 5 mg tablet (Eliquis) 5 mg PO BID #180 tabs 11/26/23 11/30/23 Rx atorvastatin 80 mg tablet 80 mg PO QHS #90 tabs 11/26/23 11/30/23 Rx blood sugar diagnostic #90 strips 11/26/23 11/30/23 Rx gentamicin 0.1 % topical cream 1 applic topical TID PRN skin 11/26/23 11/30/23 Rx irritation #30 grams tamsulosin 0.4 mg capsule (Flomax) 0.8 mg (2 x 0.4 mg) PO DAILY #180 11/26/23 11/30/23 Rx caps triamcinolone acetonide 0.1 % 1 applic topical BID #15 grams 11/27/23 11/30/23 Rx topical cream Exam Narrative Exam Narrative: General: Patient appears older than stated age, morbidly obese, alert and oriented x 3 and in no acute distress. HEENT: Normocephalic, course and facial features, eyes with pupils equal and reactive to light symmetrically, extraocular move intact and sclera anicteric. Oropharynx with moist mucosa and poor dentition. Neck: Supple without JVD. Back: Stooped posture without CVA tenderness but discomfort to palpation over the left flank when palpating the abdomen. No rebound in that area. Lungs: Bronchovesicular breath sounds diffusely with no focalizing rales or rhonchi. No expiratory wheeze. Heart: Regular rate and rhythm with no murmurs or gallops appreciated. Abdomen: Obese contour, soft with slight discomfort to deep palpation left mid to lower abdomen but no palpable masses, no guarding or rebound. Otherwise nontender. Bowel sounds positive all quadrants. No palpable hepatosplenomegaly. Genitalia/rectal: Exam deferred. Extremities: Without clubbing or cyanosis. 2-3+ pitting edema and some chronic nonpitting edema over left leg and ankle. Amputation left fifth digit. Fair cap refill. Well-healed scars over the dorsum of the left foot and the anterior of both thighs. Skin: Normal color, warm and dry. Rough texture with actinic changes over sun exposed areas. Neuro: Cranial nerves II through XII grossly intact, no focal motor deficits or tremor. Psych: Normal affect and mood. No abnormal thought processes. Remote and recent memory grossly intact. Results Imaging Imaging Studies: EXAM: CT ABD AORTA CTA W RUNOFF CLINICAL HISTORY: L flank/lower abdominal pain w N/V. TECHNIQUE: Imaging Protocol: Axial CT angiography was performed with multi- slice acquisition and multi-planar and/or 3D reconstructions. CONTRAST MATERIAL: Intravenous: Omnipaque 350 Contrast volume:150 mL Oral: No COMPARISON: CT PELVIC/LOWER ABD WITHOUT CONT from 08/10/[address] ABDOMEN PELVIS WO/W from 10/08/[address] CHEST PE CTA from 12/02/2019 FINDINGS: Vascular Structures: Abdomen and pelvis: Celiac [place]/SMA: No evidence of occlusion or significant stenosis. Atherosclerotic calcification is present. Renal Arteries: No evidence of occlusion or significant stenosis. Atherosclerotic calcification is seen at the origins of the renal arteries without significant stenosis. The distal left renal artery is narrowed. Aorta: There is a 3.6 x 3.2 cm infrarenal abdominal aortic aneurysm. Atherosclerotic calcification is present. No dissection is identified. Iliac Arteries: On the left, there is aneurysmal dilatation of the distal common iliac artery measuring 3.2 cm. There is atherosclerotic calcification of the external iliac artery with approximately 50 percent narrowing. No occlusion. There is aneurysmal dilatation of the proximal left internal iliac artery measuring 2.4 cm. There is occlusion of the left internal iliac artery just distal to this aneurysm. On the right, there is aneurysmal dilatation of the common iliac artery measuring 3.0 cm. Atherosclerotic calcification is seen in the external iliac artery without significant stenosis. There is aneurysmal dilatation of the proximal right internal iliac artery. Lower extremities: Right: Femoral: The common femoral artery is patent. No significant stenosis. There is complete occlusion of the right femoral artery Deep Femoral Artery: Atherosclerotic calcification is seen but no significant stenosis or occlusion is present. Popliteal: There is reconstitution of the popliteal artery with areas of stenosis up to 70 percent. Extensive atherosclerotic calcification is present. Knee Trifurcation: Atherosclerotic calcification is seen. The 3 distal vessels are visualized but are diminutive. Left: Femoral: The common femoral artery is patent. There is complete occlusion of the left femoral artery. There is a femoral graft which is patent and arises from the common femoral artery and extends to the posterior tibialis artery. Deep femoral artery: There is atherosclerosis present but no significant stenosis. No occlusion. Popliteal: There is reconstitution of the distal popliteal artery just proximal to the trifurcation. Knee Trifurcation: The posterior tibial and peroneal arteries are visualized but are diminutive. Soft Tissues: Lung bases: Clear. Portal, splenic and superior mesenteric veins: Unremarkable. Liver: Normal density. No measurable mass. Gallbladder and biliary tract: Cholelithiasis. There is no biliary ductal dilatation. Pancreas: Normal density, no abnormal calcifications or inflammatory process. Spleen: Normal. Kidneys: The right kidney shows normal enhancement. There is a nonobstructing 6 mm stone in the lower pole of the right kidney. There is again seen a stone or collections of stone in the proximal right ureter measuring 1.8 cm in length. There is severe proximal hydronephrosis. This has significantly progressed compared to the prior examination. There is marked cortical thinning and lack of enhancement of the left renal cortex. There is soft tissue density seen in the dependent portion of the dilated renal collecting system. The largest such area measures 3.6 x 2.6 cm. This was not present on the prior examination. This may represent hemorrhage, infectious products or neoplasm. There is a left subcapsular fluid collection measuring up to 2 cm in thickness. This is new. There is also now inflammatory stranding around the left kidney. There is mild enhancement of the wall of the dilate left renal pelvis. There are nonobstructing calculi seen in the left kidney. The ureter distal to the calcifications is mildly dilated with a mildly enhancing wall. Adrenal glands: There is a 4.0 x 4.4 cm hypodense right adrenal nodule. This is unchanged and likely reflects a adrenal adenoma. No follow-up is recommended. The left adrenal gland is unremarkable. Aorta: Abdominal portion non-dilated. Atherosclerotic calcification is present. There is a 3.6 x 3.3 cm infrarenal abdominal aortic aneurysm. No evidence of dissection. Bladder: The urinary bladder is incompletely distended limiting evaluation. In addition sideplate and screws are seen across the symphysis pubis limiting evaluation. No gross urinary bladder abnormalities are seen. Bowel: No obstruction or bowel wall thickening. The stomach is incompletely distended limiting evaluation. There is no evidence of appendicitis. Peritoneal cavity: No ascites, collection or mesenteric inflammatory response. No free air. Bones: Within normal limits for the patient's age. Soft tissues: There is moderately severe fatty atrophy of the left semi tendinosis muscle. IMPRESSION: 1. There is again seen a calcification or collection of calcifications in the proximal left ureter causing severe hydronephrosis. This has progressed since the prior examination. The left kidney is severely atrophic. There is now a subcapsular fluid collection around the left kidney. This may be hemorrhage. Infection should also be considered. 2. Aortic and iliac artery aneurysms as described above. 3. Extensive atherosclerotic calcification is seen in the runoff. Bilateral femoral artery occlusions are noted. There is a patent left femoral graft in place. Please see the above discussion for complete details. 4. Cholelithiasis. 5. Left nephrolithiasis. Labs 12/01/23 06:45 12/01/23 06:45 Labs: Laboratory Results - last 24 hr 11/30/23 11/30/23 21:59 22:28 WBC 12.41 H RBC 4.21 L Hgb 11.4 L Hct 34.8 L MCV 83 MCH 27.1 MCHC 32.8 RDW 19.0 H Plt Count 327 MPV 9.0 Immature Gran % 0.3 Neutrophils % 85.7 Lymphocytes % 6.4 Monocytes % 7.3 Eosinophils % 0.1 Basophils % 0.2 Nucleated RBC % 0.0 Absolute Neutrophils 10.64 H Absolute Lymphocytes 0.79 L Absolute Monocytes 0.91 H Absolute Eosinophils 0.01 Absolute Basophils 0.02 Sodium 138 Potassium 4.4 Chloride 104 Carbon Dioxide 23.0 Anion Gap 11.0 BUN 23 H Creatinine 1.1 Est GFR (CKD-EPI 2020) 70.88 Glucose 179 H Calcium 9.2 Total Bilirubin 0.91 AST 23 ALT 30 Alkaline Phosphatase 65 Total Protein 7.3 Albumin 3.0 L Procalcitonin 0.2 Urine Color Yellow Urine Clarity Clear Urine pH 5.5 Ur Specific [place] >= 1.030 H Urine Protein 100 H Urine Ketones Trace H Urine Blood Moderate H Urine Nitrite Negative Urine Bilirubin Small H Urine Urobilinogen 0.2 Ur Leukocyte Esterase Negative Urine RBC 10-20 H Urine WBC 3-5 Ur Epithelial Cells Few Urine Crystals Negative Urine Bacteria Few Urine Casts Negative Urine Mucus Negative Ur Culture Indicated? No Urine Glucose Negative Last Vital Signs Temp 36.1 C L 12/01/23 04:26 Pulse 83 12/01/23 04:26 Resp 20 12/01/23 04:26 BP 110/57 L 12/01/23 04:26 Pulse Ox 91 L 12/01/23 04:26 Time Spent Time spent with Patient: >75 minutes Time was spent: preparing to see the patient(eg.review tests), obtaining and/or reviewing separately otained hiistory, ordering medications,tests, procedures, referring, communicating with other health care technician, indepentently interpreting results, counseling the patient and care coordination
[2023-12-01 07:00] LABS: HCT 30.8 % (40.0-50.0); MCH 27.1 pg (27.0-33.0); MCHC 32.5 % (32.0-36.0); MCV 84 fL (80-95); MPV 8.7 fL (8.0-11.0); Platelet Count 275 10^3/uL (130-400); RBC 3.69 10^6/uL (4.36-5.78); RDW 19.3 % (11.8-14.1); RDW-SD 59.7 fL; WBC 11.82 10^3/uL (4.4-10.8)
[2023-12-01 07:19] LABS: INR 1.3 (0.9-1.1); PTT Activated 34.7 sec (23.6-32.8); Prothrombin Time 13.1 sec (9.1-11.1)
[2023-12-01 07:27] LABS: ALT 26 U/L (16-63); AST 20 U/L (15-37); Albumin 2.6 g/dL (3.4-5.0); Alkaline Phosphatase 57 U/L (46-116); Anion Gap 8.3 mmol/L (3-11); BUN 26 mg/dL (7-18); Bilirubin, Total 0.83 mg/dL (0.2-1.0); CO2 24.7 mmol/L (21.0-32.0); CREATININE 1.2 mg/dL (0.70-1.30); Calcium 8.6 mg/dL (8.5-10.1); Chloride 106 mmol/L (98-107); Estimated GFR 63.85 (mL/min/1.73m2); Glucose 107 mg/dL (74-106); Potassium 4.3 mmol/L (3.5-5.1); Sodium 139 mmol/L (136-145); Total Protein 6.5 g/dL (6.4-8.2)
[2023-12-01] MEDS: Tamsulosin 0.4 MG CAPCR 0.8 MG PO (07:53)
[2023-12-01] MEDS: Vitamins B Comp w/C TAB 1 TAB PO (07:53)
[2023-12-01] MEDS: Acetaminophen 500 MG TAB 1000 MG PO (07:53)
[2023-12-01] MEDS: Magnesium Gluconate 500 MG TAB 250 MG PO (07:53)
[2023-12-01] MEDS: Lisinopril 20 MG TAB 40 MG PO (07:54)
[2023-12-01] MEDS: Ascorbic Acid 500 MG TAB 1000 MG PO (07:54)
[2023-12-01] MEDS: Normal Saline Flush 10 ML SYR IVP (07:54)
[2023-12-01] MEDS: Metoprolol 50 MG TAB PO (07:54)
--- NOTE | 2023-12-01 09:02 | PDOC.CMIN ---
Date of service: 12/01/23 Time of Service: 09:02 Care Management Initial Assmt Initial Assessment Reason for Hospitalization: hematoma of lefty kidney Functional Status/Living Situation Town of Residence: [place] Resides with: Spouse (Hattie) Medications Medication Management: No Issues/Barriers identified Advance Directives Advance Directives: Do you have an Advance Directive: Y 08/30/20 15:39 AD On File at [facility]: N 08/30/20 15:39 Date Asked 12/01/23 12/01/23 03:19 AD Date Reviewed COLST On File at [facility] No 11/30/23 21:42 COLST Date Scanned Code Status Resuscitation Status Full Code Insurance Coverage/Financial Issues Insurance: medicare [employer] supplement Care Team Visit Care Team Role Provider Type Reno Hernandez MD Primary Care Provider [facility] STAFF PHYSICIAN Jane Le MD Emergency Provider [facility] STAFF PHYSICIAN Michael Madrigal Admit Provider NON-[facility] STAFF PHYSICIAN Attending Provider Discharge Potential Discharge Needs: PCP F/U Appt Anticipated Barriers to Discharge: None Identified Patient/Family Education Needs: Review discharge instructions, discuss Ask Me Three Transportation: Private vehicle Plan: Anticipate Vijay will be discharged home with no new services when medically cleared. He will follow up with his PCP and plan of care and transport with family. CM will follow and continue to support discharge needs. PFSH All Active Problems (Updated 12/01/23 @ 06:48 by Michael Madrigal) Left leg pain (Acute) Closed hematoma of left kidney (Acute) AAA (abdominal aortic aneurysm) (Acute) Blood in urine (Acute) Morbid obesity (Chronic) Lesion of nose (Acute) Preventative health care (Acute) Tobacco abuse (Chronic) Type 2 diabetes mellitus with diabetic neuropathy, unspecified (Chronic) Spinal stenosis of lumbosacral region (Chronic 08/09/17) Obstructive sleep apnea syndrome (Chronic) Obesity (Chronic) Kidney stone (Chronic) Severe Left obstru. uropathy 05/30 in [place] 2 cm stone at Left UVJ Hyperlipidemia (Chronic) Gastritis (Chronic 12/04/13) esophagitis on EGD 11/24 Fracture of pelvis (Chronic) Remote-fall from ladder status post surgery Essential hypertension (Chronic 01/12/13) Diabetes mellitus (Chronic 07/16/12) Colonoscopy refused (Chronic 10/21/15) Benign prostatic hyperplasia (Chronic 01/18/12) AAA (abdominal aortic aneurysm) without rupture (Chronic) 3.9cm 05/30 Peripheral vascular disease (Chronic) 10/2018-right iliofemoral endarterectomy 08/2019 left iliofemoral, SFA, profunda endarterectomy with patch angioplasty and left FSA-posterior tibial bypass [facility] vascular surgery Basal cell carcinoma (BCC) (Acute) Anemia (Chronic) 2019-, mild Amputated toe (Acute) 2018-amputation left fifth digit-osteomyelitis, [facility] vascular surgery Type 2 diabetes mellitus with diabetic neuropathy, unspecified (Acute) Left greater than right status post infection and fifth toe amputation Nicotine dependence (Acute) 06/2021-about 2 pack/day probable 80+ years pack history Patient declined CT lung-chest screen CAD (coronary artery disease) (Chronic) 2018-modest three-vessel vascular disease per catheterization at [facility]-medical management Eczema of external ear (Acute) Adrenal nodule (Acute) 03/2021-per CT report from [place], 4.4 cm nodule on left that was stable at their institution-consistent with benign lesion Fatty liver (Acute) 03/2021-fatty liver per CT in [place] Medical History Conjunctivitis (R) EYE currently being treated with abx, Madisyn aware. 07/14/21 Surgical History Hx of vein stripping Hx of cataract surgery History of surgery on lower extremity Remote left leg surgery-to repair fracture after fall from ladder, also involved pelvic and low back fracture EGD - MAC (10/28/13) Social History Smoking/Tobacco Use Status: Current every day Tobacco Type: cigarettes Smoking risk assessment performed?: Yes Alcohol Intake: former Drug use: Daily Substance use type: marijuana Details: last marijuanas use 07/30/21 Housing: house Do you feel safe at home: Yes Do you feel safe in your relationship?: Yes SDOH(Care Management) Screening Will the Patient Participate in the Screening?: Declined to provide Do you worry about having a steady place to live?: no Problems where you live: no known problems In the past 12 months, have you had to go without electric, gas, oil or water in your home?: no Have you or anyone in your house had to go without enough food to eat?: no Has lack of transportation kept you from medical appointments or from doing things needed for daily living?: no Has anyone in your support network made you feel unsafe for any reason?: no
[2023-12-01] MEDS: Polyethylene Glycol 3350 17 GM PACKET PO (09:11)
[2023-12-01] MEDS: Docusate Sodium 100 MG CAP PO (09:11)
[2023-12-01 12:04] LABS: HCT 30.2 % (40.0-50.0); HGB 9.7 g/dL (13.5-17.5)
--- NOTE | 2023-12-01 13:23 | NUR.NOTE ---
Patient left AMA. Patient educated on risk of leaving hospital, Patient verbalized understanding and signed AMA paperwork. 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 Nursing Note:
--- NOTE | 2023-12-01 13:27 | DSE_ITS ---
Date of service: 12/01/23 Time of Service: 13:27 DS: Diagnosis Discharge Diagnosis (1) Active internal bleeding: Status: Acute Asessment and Plan: continues to have decreasing hemoglobin at time of discharge. Patient cautioned could be life or health threatening (2) Anemia: Status: Chronic Asessment and Plan: ongoing blood loss, patient not medically cleared for discharge. (3) Kidney stone: Status: Chronic Asessment and Plan: discussed with patient he should seek robotic nephrectomy. (4) AAA (abdominal aortic aneurysm) without rupture: Status: Chronic (5) Type 2 diabetes mellitus with diabetic neuropathy, unspecified: Status: Chronic Asessment and Plan: stable (6) Spinal stenosis of lumbosacral region: Status: Chronic Asessment and Plan: stable (7) Peripheral vascular disease: Status: Chronic Asessment and Plan: stable (8) CAD (coronary artery disease): Status: Chronic Asessment and Plan: stable (9) Hyperlipidemia: Status: Chronic Asessment and Plan: stable (10) Tobacco abuse: Status: Chronic Asessment and Plan: ongoing (11) Morbid obesity: Status: Chronic Asessment and Plan: no new issues. Discharge Plan Disposition Patient Disposition: Against Medical Advice Condition: Deteriorating Discharge Details Reason For Visit: Hematoma Left Kidney Admit Date/Time: 12/01/23 03:14 Admit Provider: Michael Madrigal Attending Provider: Michael Madrigal Primary Care Provider: Reno Hernandez Hospital Course Hospital Course: Patient admitted with a positive CT scan for fluid around the left kidney which is nonfunctioning at this time. Hemoglobin was noted to be dropping overnight. Repeat hemoglobin 6 hours after admission to the floor showed further dropping in hemoglobin. Patient decided to sign out AGAINST MEDICAL ADVICE. Called to the bedside by nursing stating that the patient was going to sign out AGAINST MEDICAL ADVICE The patient's 12 PM hematocrit continue showing decline in hematocrit and hemoglobin. I discussed with the patient at bedside the reasons why he should not leave those including his possible need for blood transfusion, the continued anemia secondary to ongoing blood loss with bleeding in and around the left kidney which may require blood transfusion and/or worse surgical intervention. The patient is fixated on leaving the hospital for the benefit of his mental health. He is advised that should he leave, I can no longer care for him once he leaves the 4 corners of the hospital and should he feel the need to have further medical care he would need to seek that out from his primary medical provider outpatient or return to the emergency department but I would not be able to be a resource directing his care. He asked when he can restart his blood thinners. I told him I cannot give him advice on that. If he leaves the hospital he would need to discuss that with his doctors at [facility] or his primary care doctor locally. Patient is advised that the risks of him leaving AGAINST MEDICAL ADVICE at this time include continued blood loss, multisystem organ failure, stroke, myocardial infarction and . The patient states he is willing to accept these risks because he needs to seek his mental health. The conversation attempting to inform the patient regarding the risks and hopefully change his mind and stay in the hospital took approximately 27 minutes. It was attended by Turner, his primary nurse. After our conversation, the patient asked Turner for paperwork to leave AGAINST MEDICAL ADVICE. Home Meds and New Rx's Prescriptions: No Action Complex B-100 Tablet Extended Release 1 tab PO DAILY Ultra CoQ10 75 mg capsule 75 mg PO DAILY glipizide [Glucotrol XL] 5 mg tablet extended release 24hr 5 mg PO DAILY Qty: 90 3RF aspirin [Adult Low Dose Aspirin] 81 mg tablet,delayed release (DR/EC) 81 mg PO DAILY Qty: 1 0RF gentamicin 0.1 % cream 1 applic topical TID PRN (Reason: skin irritation) Qty: 30 0RF Eliquis 5 mg tablet 5 mg PO BID Qty: 180 3RF (DME) blood sugar diagnostic Strip 1 ea Miscellaneous DAILY Qty: 90 3RF Rx Instructions: test once/day atorvastatin 80 mg tablet 80 mg PO QHS Qty: 90 3RF tamsulosin [Flomax] 0.4 mg capsule 0.8 mg PO DAILY Qty: 180 3RF metformin 1,000 mg tablet 1,000 mg PO BID Qty: 180 4RF Rx Instructions: RX'D 01/18/12 lisinopril 40 mg tablet 40 mg PO DAILY Qty: 90 4RF metoprolol tartrate 50 mg tablet 50 mg PO BID Qty: 180 4RF Rx Instructions: RX'D 01/18/12 triamcinolone acetonide 0.1 % cream 1 applic topical BID Qty: 15 1RF Rx Instructions: To affected area at external ear magnesium 250 mg Tablet 250 mg PO DAILY ascorbic acid (vitamin C) [Vitamin C] 1,000 mg Tablet 1,000 mg PO DAILY Discharge Instructions Diet:: As Tolerated Discharge Data Discharge Date/Time-TO BE ENTERED AT DEPARTURE: 12/01/23 13:19 Discharge Comment: Patient left AMA DS: Summary Time Spent with Patient providing and/or coordinating discharge services: Greater than 30 minutes Specific discharge activities: Called to the bedside by nursing stating that the patient was going to sign out AGAINST MEDICAL ADVICE The patient's 12 PM hematocrit continue showing decline in hematocrit and hemoglobin. I discussed with the patient at bedside the reasons why he should not leave those including his possible need for blood transfusion, the continued anemia secondary to ongoing blood loss with bleeding in and around the left kidney which may require blood transfusion and/or worse surgical intervention. The patient is fixated on leaving the hospital for the benefit of his mental health. He is advised that should he leave, I can no longer care for him once he leaves the 4 [facility] of the hospital and should he feel the need to have further medical care he would need to seek that out from his primary medical provider outpatient or return to the emergency department but I would not be able to be a resource directing his care. He asked when he can restart his blood thinners. I told him I cannot give him advice on that. If he leaves the hospital he would need to discuss that with his doctors at [facility] or his primary care doctor locally. Patient is advised that the risks of him leaving AGAINST MEDICAL ADVICE at this time include continued blood loss, multisystem organ failure, stroke, myocardial infarction and . The patient states he is willing to accept these risks because he needs to seek his mental health. The conversation attempting to inform the patient regarding the risks and hopefully change his mind and stay in the hospital took approximately 27 minutes. It was attended by Turner, his primary nurse. After our conversation, the patient asked Turner for paperwork to leave AGAINST MEDICAL ADVICE. Status at Discharge Functional status at discharge: independent ambulation Overall status at discharge: patient is not back to baseline Mental Status: mental status grossly normal Speech and Movement: speech and movement normal Mood: anxious mood Affect: normal affect Quality:SDOH Health Related Social Needs: No Data to Display Exam Narrative Exam Narrative: Patient examined sitting up in medical surgical bed Patient has been seen multiple times today by his urgent command for discharge. Neck is supple, face and neck are bearded. Upper lip is stained by nicotine. Patient is missing multiple terminal digits. Abdomen is obese and tense. Skin without visible rash Neuro: No focal deficits appreciated grossly. Patient is alert and interactive. Appears cognitive at his baseline. Psych Mental Status: mental status grossly normal Speech and Movement: speech and movement normal Mood: anxious mood Affect: normal affect DS: Data Vitals/I&O Vitals and I&O: Vital Signs Temperature 36.2 C L 12/01/23 11:45 Temperature Source Tympanic 12/01/23 11:45 Pulse 67 12/01/23 11:45 Pulse Rhythm Regular 12/01/23 04:26 Pulse 80 12/01/23 03:00 Respiratory Rate 20 12/01/23 11:45 Respiratory Effort Short of Breath 12/01/23 04:26 Respiratory Depth Normal 12/01/23 04:26 Respiratory Pattern Normal 12/01/23 04:26 Blood Pressure 108/56 L 12/01/23 11:45 Blood Pressure Mean 82 12/01/23 03:36 Pulse Oximetry 93 12/01/23 11:45 Oxygen Delivery Method Room Air 12/01/23 11:45 Oxygen Flow Rate 0 12/01/23 11:45 Pain Level 0 12/01/23 11:45 Intake & Output 11/30/23 12/01/23 12/01/23 23:59 11:59 23:59 Intake Total 500 / 500 350 / 350 Output Total 100 / 200 100 / 200 Balance 500 / 500 250 / 150 -100 / 150 Weight 136.078 kg 134.717 kg Intake: IV 500 / 500 100 / 100 Oral 250 / 250 Output: Urine 100 / 200 100 / 200 Other: Urine Color Yellow Yellow Urine Appearance Clear Clear Comment post void residual Data Completed and Pending Labs on day of discharge: Labs from last 24 hours 12/01/23 12/01/23 11/30/23 12:00 06:45 22:28 WBC 11.82 H RBC 3.69 L Hgb 9.7 L 10.0 L Hct 30.2 L 30.8 L MCV 84 MCH 27.1 MCHC 32.5 RDW 19.3 H Plt Count 275 MPV 8.7 Immature Gran % Neutrophils % Lymphocytes % Monocytes % Eosinophils % Basophils % Nucleated RBC % Absolute Neutrophils Absolute Lymphocytes Absolute Monocytes Absolute Eosinophils Absolute Basophils PT 13.1 H INR 1.3 H APTT 34.7 H Sodium 139 Potassium 4.3 Chloride 106 Carbon Dioxide 24.7 Anion Gap 8.3 BUN 26 H Creatinine 1.2 Est GFR (CKD-EPI 2020) 63.85 Glucose 107 H Calcium 8.6 Total Bilirubin 0.83 AST 20 ALT 26 Alkaline Phosphatase 57 Total Protein 6.5 Albumin 2.6 L Procalcitonin Urine Color Yellow Urine Clarity Clear Urine pH 5.5 Ur Specific [place] >= 1.030 H Urine Protein 100 H Urine Ketones Trace H Urine Blood Moderate H Urine Nitrite Negative Urine Bilirubin Small H Urine Urobilinogen 0.2 Ur Leukocyte Esterase Negative Urine RBC 10-20 H Urine WBC 3-5 Ur Epithelial Cells Few Urine Crystals Negative Urine Bacteria Few Urine Casts Negative Urine Mucus Negative Ur Culture Indicated? No Urine Glucose Negative 11/30/23 21:59 WBC 12.41 H RBC 4.21 L Hgb 11.4 L Hct 34.8 L MCV 83 MCH 27.1 MCHC 32.8 RDW 19.0 H Plt Count 327 MPV 9.0 Immature Gran % 0.3 Neutrophils % 85.7 Lymphocytes % 6.4 Monocytes % 7.3 Eosinophils % 0.1 Basophils % 0.2 Nucleated RBC % 0.0 Absolute Neutrophils 10.64 H Absolute Lymphocytes 0.79 L Absolute Monocytes 0.91 H Absolute Eosinophils 0.01 Absolute Basophils 0.02 PT INR APTT Sodium 138 Potassium 4.4 Chloride 104 Carbon Dioxide 23.0 Anion Gap 11.0 BUN 23 H Creatinine 1.1 Est GFR (CKD-EPI 2020) 70.88 Glucose 179 H Calcium 9.2 Total Bilirubin 0.91 AST 23 ALT 30 Alkaline Phosphatase 65 Total Protein 7.3 Albumin 3.0 L Procalcitonin 0.2 Urine Color Urine Clarity Urine pH Ur Specific [place] Urine Protein Urine Ketones Urine Blood Urine Nitrite Urine Bilirubin Urine Urobilinogen Ur Leukocyte Esterase Urine RBC Urine WBC Ur Epithelial Cells Urine Crystals Urine Bacteria Urine Casts Urine Mucus Ur Culture Indicated? Urine Glucose PFSH All Active Problems (Updated 12/01/23 @ 13:45 by Bala Belle DO) Active internal bleeding (Acute) Left leg pain (Acute) Closed hematoma of left kidney (Acute) AAA (abdominal aortic aneurysm) (Acute) Blood in urine (Acute) Morbid obesity (Chronic) Lesion of nose (Acute) Preventative health care (Acute) Tobacco abuse (Chronic) Type 2 diabetes mellitus with diabetic neuropathy, unspecified (Chronic) Spinal stenosis of lumbosacral region (Chronic 08/09/17) Obstructive sleep apnea syndrome (Chronic) Obesity (Chronic) Kidney stone (Chronic) Severe Left obstru. uropathy 05/30 in [place] 2 cm stone at Left UVJ Hyperlipidemia (Chronic) Gastritis (Chronic 12/04/13) esophagitis on EGD 11/24 Fracture of pelvis (Chronic) Remote-fall from ladder status post surgery Essential hypertension (Chronic 01/12/13) Diabetes mellitus (Chronic 07/16/12) Colonoscopy refused (Chronic 10/21/15) Benign prostatic hyperplasia (Chronic 01/18/12) AAA (abdominal aortic aneurysm) without rupture (Chronic) 3.9cm 05/30 Peripheral vascular disease (Chronic) 10/2018-right iliofemoral endarterectomy 08/2019 left iliofemoral, SFA, profunda endarterectomy with patch angioplasty and left FSA-posterior tibial bypass [facility] vascular surgery Basal cell carcinoma (BCC) (Acute) Anemia (Chronic) 2019-, mild Amputated toe (Acute) 2018-amputation left fifth digit-osteomyelitis, [facility] vascular surgery Type 2 diabetes mellitus with diabetic neuropathy, unspecified (Acute) Left greater than right status post infection and fifth toe amputation Nicotine dependence (Acute) 06/2021-about 2 pack/day probable 80+ years pack history Patient declined CT lung-chest screen CAD (coronary artery disease) (Chronic) 2018-modest three-vessel vascular disease per catheterization at [facility]-medical management Eczema of external ear (Acute) Adrenal nodule (Acute) 03/2021-per CT report from [place], 4.4 cm nodule on left that was stable at their institution-consistent with benign lesion Fatty liver (Acute) 03/2021-fatty liver per CT in [place] Medical History Conjunctivitis (R) EYE currently being treated with abx, Madisyn aware. 07/14/21 Surgical History Hx of vein stripping Hx of cataract surgery History of surgery on lower extremity Remote left leg surgery-to repair fracture after fall from ladder, also involved pelvic and low back fracture EGD - MAC (10/28/13) Social History Smoking/Tobacco Use Status: Current every day Tobacco Type: cigarettes Smoking risk assessment performed?: Yes Alcohol Intake: former Drug use: Daily Substance use type: marijuana Details: last marijuanas use 07/30/21 Housing: house Do you feel safe at home: Yes Do you feel safe in your relationship?: Yes Time Spent with Patient Time Spent with Patient: 45-69 minutes Time was spent: preparing to see the patient(eg.review tests), obtaining and/or reviewing separately otained hiistory, ordering medications,tests, procedures, referring, communicating with other health urgent care physician assistant, indepentently interpreting results, counseling the patient and care coordination
--- NOTE | 2023-12-01 13:38 | W.PM.DS.N ---
DS: Diagnosis Discharge Diagnosis (1) Closed hematoma of left kidney: Status: Acute (2) Anemia: Status: Chronic (3) Kidney stone: Status: Chronic (4) AAA (abdominal aortic aneurysm) without rupture: Status: Chronic (5) Type 2 diabetes mellitus with diabetic neuropathy, unspecified: Status: Chronic (6) Spinal stenosis of lumbosacral region: Status: Chronic (7) Peripheral vascular disease: Status: Chronic (8) CAD (coronary artery disease): Status: Chronic (9) Hyperlipidemia: Status: Chronic (10) Tobacco abuse: Status: Chronic (11) Morbid obesity: Status: Chronic Discharge Plan Disposition Patient Disposition: Against Medical Advice Condition: Deteriorating Discharge Details Reason For Visit: Hematoma Left Kidney Admit Date/Time: 12/01/23 03:14 Admit Provider: Michael Madrigal Attending Provider: Michael Madrigal Primary Care Provider: Reno Hernandez Hospital Course Hospital Course: Patient admitted with a positive CT scan for fluid around the left kidney which is nonfunctioning at this time. Hemoglobin was noted to be dropping overnight. Repeat hemoglobin 6 hours after admission to the floor showed further dropping in hemoglobin. Patient decided to sign out AGAINST MEDICAL ADVICE. Home Meds and New Rx's Prescriptions: No Action Complex B-100 Tablet Extended Release 1 tab PO DAILY Ultra CoQ10 75 mg capsule 75 mg PO DAILY glipizide [Glucotrol XL] 5 mg tablet extended release 24hr 5 mg PO DAILY Qty: 90 3RF aspirin [Adult Low Dose Aspirin] 81 mg tablet,delayed release (DR/EC) 81 mg PO DAILY Qty: 1 0RF gentamicin 0.1 % cream 1 applic topical TID PRN (Reason: skin irritation) Qty: 30 0RF Eliquis 5 mg tablet 5 mg PO BID Qty: 180 3RF (DME) blood sugar diagnostic Strip 1 ea Miscellaneous DAILY Qty: 90 3RF Rx Instructions: test once/day atorvastatin 80 mg tablet 80 mg PO QHS Qty: 90 3RF tamsulosin [Flomax] 0.4 mg capsule 0.8 mg PO DAILY Qty: 180 3RF metformin 1,000 mg tablet 1,000 mg PO BID Qty: 180 4RF Rx Instructions: RX'D 01/18/12 lisinopril 40 mg tablet 40 mg PO DAILY Qty: 90 4RF metoprolol tartrate 50 mg tablet 50 mg PO BID Qty: 180 4RF Rx Instructions: RX'D 01/18/12 triamcinolone acetonide 0.1 % cream 1 applic topical BID Qty: 15 1RF Rx Instructions: To affected area at external ear magnesium 250 mg Tablet 250 mg PO DAILY ascorbic acid (vitamin C) [Vitamin C] 1,000 mg Tablet 1,000 mg PO DAILY Discharge Data Discharge Date/Time-TO BE ENTERED AT DEPARTURE: 12/01/23 13:19 Discharge Comment: Patient left AMA DS: Summary Quality:SDOH Health Related Social Needs: No Data to Display DS: Data Vitals/I&O Vitals and I&O: Vital Signs Temperature 36.2 C L 12/01/23 11:45 Temperature Source Tympanic 12/01/23 11:45 Pulse 67 12/01/23 11:45 Pulse Rhythm Regular 12/01/23 04:26 Pulse 80 12/01/23 03:00 Respiratory Rate 20 12/01/23 11:45 Respiratory Effort Short of Breath 12/01/23 04:26 Respiratory Depth Normal 12/01/23 04:26 Respiratory Pattern Normal 12/01/23 04:26 Blood Pressure 108/56 L 12/01/23 11:45 Blood Pressure Mean 82 12/01/23 03:36 Pulse Oximetry 93 12/01/23 11:45 Oxygen Delivery Method Room Air 12/01/23 11:45 Oxygen Flow Rate 0 12/01/23 11:45 Pain Level 0 12/01/23 11:45 Intake & Output 11/30/23 12/01/23 12/01/23 23:59 11:59 23:59 Intake Total 500 / 500 350 / 350 Output Total 100 / 200 100 / 200 Balance 500 / 500 250 / 150 -100 / 150 Weight 136.078 kg 134.717 kg Intake: IV 500 / 500 100 / 100 Oral 250 / 250 Output: Urine 100 / 200 100 / 200 Other: Urine Color Yellow Yellow Urine Appearance Clear Clear Comment post void residual Data Completed and Pending Labs on day of discharge: Labs from last 24 hours 12/01/23 12/01/23 11/30/23 12:00 06:45 22:28 WBC 11.82 H RBC 3.69 L Hgb 9.7 L 10.0 L Hct 30.2 L 30.8 L MCV 84 MCH 27.1 MCHC 32.5 RDW 19.3 H Plt Count 275 MPV 8.7 Immature Gran % Neutrophils % Lymphocytes % Monocytes % Eosinophils % Basophils % Nucleated RBC % Absolute Neutrophils Absolute Lymphocytes Absolute Monocytes Absolute Eosinophils Absolute Basophils PT 13.1 H INR 1.3 H APTT 34.7 H Sodium 139 Potassium 4.3 Chloride 106 Carbon Dioxide 24.7 Anion Gap 8.3 BUN 26 H Creatinine 1.2 Est GFR (CKD-EPI 2020) 63.85 Glucose 107 H Calcium 8.6 Total Bilirubin 0.83 AST 20 ALT 26 Alkaline Phosphatase 57 Total Protein 6.5 Albumin 2.6 L Procalcitonin Urine Color Yellow Urine Clarity Clear Urine pH 5.5 Ur Specific Union >= 1.030 H Urine Protein 100 H Urine Ketones Trace H Urine Blood Moderate H Urine Nitrite Negative Urine Bilirubin Small H Urine Urobilinogen 0.2 Ur Leukocyte Esterase Negative Urine RBC 10-20 H Urine WBC 3-5 Ur Epithelial Cells Few Urine Crystals Negative Urine Bacteria Few Urine Casts Negative Urine Mucus Negative Ur Culture Indicated? No Urine Glucose Negative 11/30/23 21:59 WBC 12.41 H RBC 4.21 L Hgb 11.4 L Hct 34.8 L MCV 83 MCH 27.1 MCHC 32.8 RDW 19.0 H Plt Count 327 MPV 9.0 Immature Gran % 0.3 Neutrophils % 85.7 Lymphocytes % 6.4 Monocytes % 7.3 Eosinophils % 0.1 Basophils % 0.2 Nucleated RBC % 0.0 Absolute Neutrophils 10.64 H Absolute Lymphocytes 0.79 L Absolute Monocytes 0.91 H Absolute Eosinophils 0.01 Absolute Basophils 0.02 PT INR APTT Sodium 138 Potassium 4.4 Chloride 104 Carbon Dioxide 23.0 Anion Gap 11.0 BUN 23 H Creatinine 1.1 Est GFR (CKD-EPI 2020) 70.88 Glucose 179 H Calcium 9.2 Total Bilirubin 0.91 AST 23 ALT 30 Alkaline Phosphatase 65 Total Protein 7.3 Albumin 3.0 L Procalcitonin 0.2 Urine Color Urine Clarity Urine pH Ur Specific Union Urine Protein Urine Ketones Urine Blood Urine Nitrite Urine Bilirubin Urine Urobilinogen Ur Leukocyte Esterase Urine RBC Urine WBC Ur Epithelial Cells Urine Crystals Urine Bacteria Urine Casts Urine Mucus Ur Culture Indicated? Urine Glucose PFSH All Active Problems (Updated 12/01/23 @ 06:48 by Michael Madrigal) Left leg pain (Acute) Closed hematoma of left kidney (Acute) AAA (abdominal aortic aneurysm) (Acute) Blood in urine (Acute) Morbid obesity (Chronic) Lesion of nose (Acute) Preventative health care (Acute) Tobacco abuse (Chronic) Type 2 diabetes mellitus with diabetic neuropathy, unspecified (Chronic) Spinal stenosis of lumbosacral region (Chronic 08/09/17) Obstructive sleep apnea syndrome (Chronic) Obesity (Chronic) Kidney stone (Chronic) Severe Left obstru. uropathy 05/30 in [place]. 2 cm stone at Left UVJ Hyperlipidemia (Chronic) Gastritis (Chronic 12/04/13) esophagitis on EGD 11/24 Fracture of pelvis (Chronic) Remote-fall from ladder status post surgery Essential hypertension (Chronic 01/12/13) Diabetes mellitus (Chronic 07/16/12) Colonoscopy refused (Chronic 10/21/15) Benign prostatic hyperplasia (Chronic 01/18/12) AAA (abdominal aortic aneurysm) without rupture (Chronic) 3.9cm 05/30 Peripheral vascular disease (Chronic) 10/2018-right iliofemoral endarterectomy 08/2019 left iliofemoral, SFA, profunda endarterectomy with patch angioplasty and left FSA-posterior tibial bypass [facility] vascular surgery Basal cell carcinoma (BCC) (Acute) Anemia (Chronic) 2019-, mild Amputated toe (Acute) 2018-amputation left fifth digit-osteomyelitis, [facility] vascular surgery Type 2 diabetes mellitus with diabetic neuropathy, unspecified (Acute) Left greater than right status post infection and fifth toe amputation Nicotine dependence (Acute) 06/2021-about 2 pack/day probable 80+ years pack history Patient declined CT lung-chest screen CAD (coronary artery disease) (Chronic) 2018-modest three-vessel vascular disease per catheterization at [facility]-medical management Eczema of external ear (Acute) Adrenal nodule (Acute) 03/2021-per CT report from [place], 4.4 cm nodule on left that was stable at their institution-consistent with benign lesion Fatty liver (Acute) 03/2021-fatty liver per CT in [place] Medical History Conjunctivitis (R) EYE currently being treated with abx, Madisyn aware. 07/14/21 Surgical History Hx of vein stripping Hx of cataract surgery History of surgery on lower extremity Remote left leg surgery-to repair fracture after fall from ladder, also involved pelvic and low back fracture EGD - MAC (10/28/13) Social History Smoking/Tobacco Use Status: Current every day Tobacco Type: cigarettes Smoking risk assessment performed?: Yes Alcohol Intake: former Drug use: Daily Substance use type: marijuana Details: last marijuanas use 07/30/21 Housing: house Do you feel safe at home: Yes Do you feel safe in your relationship?: Yes
--- NOTE | 2023-12-01 14:33 | PDOC.CMPRO ---
Date of service: 12/01/23 Time of Service: 14:33 Care Management Progress Note Progress Note Text Progress Note Text: Patient left the hospital against medical advice. Paperwork signed and to transport. SDOH(Care Management) Screening Will the Patient Participate in the Screening?: Declined to provide Do you worry about having a steady place to live?: no Problems where you live: no known problems In the past 12 months, have you had to go without electric, gas, oil or water in your home?: no Have you or anyone in your house had to go without enough food to eat?: no Has lack of transportation kept you from medical appointments or from doing things needed for daily living?: no Has anyone in your support network made you feel unsafe for any reason?: no
== END 2023-12-01 13:19 | disposition left against medical advice (07) ==
LOC: ER 12-01 03:20 → MS 12-01 04:24
PROVIDERS: Internal Medicine; Nurse Practitioner Family; Admitting Provider Family Medicine; Emergency Provider Student in an Organized Health Care Education/Training Program; PCP Family Medicine; Visit Provider Family Medicine
DX: N28.89 Other specified disorders of kidney and ureter (principal); I71.43 Infrarenal abdominal aortic aneurysm, without rupture; N13.2 Hydronephrosis with renal and ureteral calculous obstruction; E11.40 Type 2 diabetes mellitus with diabetic neuropathy, unspecified; M48.07 Spinal stenosis, lumbosacral region; I73.9 Peripheral vascular disease, unspecified; I25.10 Atherosclerotic heart disease of native coronary artery without angina pectoris; E78.2 Mixed hyperlipidemia; F17.210 Nicotine dependence, cigarettes, uncomplicated; E66.01 Morbid (severe) obesity due to excess calories; Z68.41 Body mass index [BMI] 40.0-44.9, adult; Z79.84 Long term (current) use of oral hypoglycemic drugs; Z79.899 Other long term (current) drug therapy; Z79.82 Long term (current) use of aspirin; I10 Essential (primary) hypertension; R31.9 Hematuria, unspecified; D64.9 Anemia, unspecified; Z79.4 Long term (current) use of insulin; G47.33 Obstructive sleep apnea (adult) (pediatric)
CPT/HCPCS: 00123; 36415; 75635; 80048; 80053; 84145; 85027; 86850; 86900; 86901; 96361; 96365; 96372; 96375; 99285; 74177; 81003; 81015; 85014; 85018; 85025; 85610; 85730; 94760; 99236; 99284; G0378; J0131; J1885; J2270; J2405; J3490; Q9967

== ENCOUNTER 2023-12-01 18:21 | Emergency (ER) | payer MEDICARE, SELFPAY ==
[2023-12-01] VITALS (32 sets, daily range): BP systolic 113–147; BP diastolic 51–71; PULSE 82–105; RESP 15–33; TEMP 37; O2SAT 90–97
--- NOTE | 2023-12-01 19:00 | W.ED.GENAD ---
Discharge Plan Disposition Patient Disposition: Home Condition: Good Discharge Details Clinical Impression: Closed hematoma of left kidney Primary Care Provider: Reno Hernandez ED Provider: Anup Quinones Home Meds and New Rx's Prescriptions: Continued Complex B-100 Tablet Extended Release 1 tab PO DAILY Ultra CoQ10 75 mg capsule 75 mg PO DAILY glipizide [Glucotrol XL] 5 mg tablet extended release 24hr 5 mg PO DAILY Qty: 90 3RF aspirin [Adult Low Dose Aspirin] 81 mg tablet,delayed release (DR/EC) 81 mg PO DAILY Qty: 1 0RF gentamicin 0.1 % cream 1 applic topical TID PRN (Reason: skin irritation) Qty: 30 0RF (DME) blood sugar diagnostic Strip 1 ea Miscellaneous DAILY Qty: 90 3RF Rx Instructions: test once/day atorvastatin 80 mg tablet 80 mg PO QHS Qty: 90 3RF tamsulosin [Flomax] 0.4 mg capsule 0.8 mg PO DAILY Qty: 180 3RF metformin 1,000 mg tablet 1,000 mg PO BID Qty: 180 4RF Rx Instructions: RX'D 01/18/12 lisinopril 40 mg tablet 40 mg PO DAILY Qty: 90 4RF metoprolol tartrate 50 mg tablet 50 mg PO BID Qty: 180 4RF Rx Instructions: RX'D 01/18/12 triamcinolone acetonide 0.1 % cream 1 applic topical BID Qty: 15 1RF Rx Instructions: To affected area at external ear magnesium 250 mg Tablet 250 mg PO DAILY ascorbic acid (vitamin C) [Vitamin C] 1,000 mg Tablet 1,000 mg PO DAILY Held Eliquis 5 mg tablet 5 mg PO BID Qty: 180 3RF Hold Instructions: Resume on 12/07/23. hold x 1 week for hematoma Discharge Instructions Additional Instructions: At this time your CAT scan has returned stable with no change in the hematoma and no new bleed. Please call your urologist in [place] tomorrow morning to schedule follow-up appointment for you next week when you arrive. Please hold your Eliquis for 1 week. Return to emergency care if you develop fever, worsening or changing abdominal pain, nausea/vomiting, new dizziness, chest pains, shortness of breath, or if you are very worried you need to be rechecked again immediately Referrals: Reno Hernandez MD [Primary Care Provider] - HPI <Winsome Garcia - Last Filed: 12/01/23 23:15> General Date/Time Provider Initiated Documentation: 12/01/23 18:22. HPI Narrative: Vijay is a 73-year-old male with history of left renal hematoma actively bleeding who presents to the emergency department today after leaving AMA at 2 PM this afternoon. He reports that he had a bad mental health afternoon and freaked out about being in the hospital, says that freaked out and left. He was aware that he has internal bleeding and he needs to be monitored. Upon discharge he was pain-free, but developed 3/10 pain to the left lower quadrant that has been on and off since then. He denies associated fever/chills, nausea/vomiting, other feeling of unwellness, change in bowel or bladder function. He has not taken his Eliquis for 2 doses. He has a history of obstructive process to the left kidney; there was a hematoma forming around the kidney that was diagnosed here in the emergency department last night. His hemoglobin continued to drop throughout the day today. He admits that he realized he made a mistake and that should come back to the hospital in case anything that happened. Physical exam reassuring. Vijay is alert and oriented, no acute distress. Easy work of breathing, lung sounds clear bilaterally. Mild tachycardia noted (HR in 90s), heart sounds normal. Abdomen is softly distended, tender to palpation in the LLQ. History and presentation concerning for worsening of anemia due to internal bleeding. I independently interpreted the following tests; CBC reassuring, H+H currently 10.5 and 32.3 (from its lowest point of 9.7 and 30.2 earlier today at 1200). BMP unchanged. UA reassuring, trace blood and improved protein. Consulted with Dr Fallon, urologist at [facility] who was consulted last night as well (is familiar with case). As blood count is stable, can CT and discharge home if no growth of hematoma. Recommends holding Eliquis x 1 week and 2-3 week f/u with urology (at [facility] or in [place]). I have discussed plan of care with patient and his (on phone); they voice understanding and agreement with plan of care. As pt has already reached max IV contrast load for 24 hour period, will perform repeat CT abd/pelv with contrast at 2300 (24 hours after initial). Awaiting CT read by [facility]. Handoff report given to Dr Quinones, overnight attending. Related Data Home Medications ?Medication ?Instructions ?Recorded ?Confirmed vitamin B complex (Complex B-100 1 tab PO DAILY 09/02/18 12/01/23 tablet,extended release) coenzyme Q10 75 mg capsule (Ultra 75 mg PO DAILY 10/07/19 12/01/23 CoQ10) aspirin 81 mg tablet,delayed 81 mg PO DAILY #1 tab 07/05/21 12/01/23 release (Adult Low Dose Aspirin) ascorbic acid (vitamin C) 1,000 mg 1,000 mg PO DAILY 07/31/21 12/01/23 tablet (Vitamin C) magnesium 250 mg tablet 250 mg PO DAILY 07/31/21 12/01/23 lisinopril 40 mg tablet 40 mg PO DAILY #90 tab-caps 04/11/23 12/01/23 metformin 1,000 mg tablet 1,000 mg PO BID #180 tab-caps 04/11/23 12/01/23 metoprolol tartrate 50 mg tablet 50 mg PO BID #180 tab-caps 04/11/23 12/01/23 glipizide 5 mg tablet, extended 5 mg PO DAILY #90 tab-caps 07/02/23 12/01/23 release 24 hr (Glucotrol XL) apixaban 5 mg tablet (Eliquis) 5 mg PO BID #180 tabs 11/26/23 12/01/23 atorvastatin 80 mg tablet 80 mg PO QHS #90 tabs 11/26/23 12/01/23 blood sugar diagnostic #90 strips 11/26/23 12/01/23 gentamicin 0.1 % topical cream 1 applic topical TID PRN skin 11/26/23 12/01/23 irritation #30 grams tamsulosin 0.4 mg capsule (Flomax) 0.8 mg (2 x 0.4 mg) PO DAILY #180 11/26/23 12/01/23 caps triamcinolone acetonide 0.1 % 1 applic topical BID #15 grams 11/27/23 12/01/23 topical cream Previous Rx's ?Medication ?Instructions ?Recorded aspirin 81 mg tablet,delayed 81 mg PO DAILY #1 tab 07/05/21 release (Adult Low Dose Aspirin) lisinopril 40 mg tablet 40 mg PO DAILY #90 tab-caps 04/11/23 metformin 1,000 mg tablet 1,000 mg PO BID #180 tab-caps 04/11/23 metoprolol tartrate 50 mg tablet 50 mg PO BID #180 tab-caps 04/11/23 glipizide 5 mg tablet, extended 5 mg PO DAILY #90 tab-caps 07/02/23 release 24 hr (Glucotrol XL) apixaban 5 mg tablet (Eliquis) 5 mg PO BID #180 tabs 11/26/23 atorvastatin 80 mg tablet 80 mg PO QHS #90 tabs 11/26/23 blood sugar diagnostic #90 strips 11/26/23 gentamicin 0.1 % topical cream 1 applic topical TID PRN skin 11/26/23 irritation #30 grams tamsulosin 0.4 mg capsule (Flomax) 0.8 mg (2 x 0.4 mg) PO DAILY #180 11/26/23 caps triamcinolone acetonide 0.1 % 1 applic topical BID #15 grams 11/27/23 topical cream Allergies Allergy/AdvReac Type Severity Reaction Status Date / Time No Known Allergies Allergy Verified 12/01/23 18:31 General Stated Complaint: FlankPain KENNEDI: 3 Review of Systems <Winsome Garcia Textic Last Filed: 12/01/23 23:15> Narrative: see HPI Exam <Winsome Garcia Last Filed: 12/01/23 23:15> Const General: cooperative, healthy appearing, comfortable, no acute distress, well developed and well groomed Nutritional Appearance: obese Orientation: alert and oriented x3 Resp Effort & Inspection: normal respiratory effort and able to speak in complete sentences Auscultation: clear to auscultation bilaterally Cardio Rate: tachycardic Rhythm: regular rhythm GI Inspection: normal to inspection, no abdominal wall ecchymosis, non-distended and obesity Palpation: soft, not firm, no guarding, no pulsatile masses, not rigid and tender in the LLQ Auscultation: normal bowel sounds Neuro General: patient alert, patient oriented x3, tone normal and moves all extremities Cognition: normal cognition Speech: speech normal Course <Winsome Garcia Textic [facility] Filed: 12/01/23 23:15> Vital Signs Vital signs: Vital Signs Temperature 37.0 C 12/01/23 18:28 Pulse 105 H 12/01/23 18:28 Respiratory Rate 16 12/01/23 18:28 Blood Pressure 113/71 12/01/23 18:28 Pulse Oximetry 91 L 12/01/23 18:28 Temperature 37.0 C 12/01/23 18:28 Temperature Source Oral 12/01/23 18:28 Pulse 105 H 12/01/23 18:28 Respiratory Rate 16 12/01/23 18:28 Blood Pressure 113/71 12/01/23 18:28 Blood Pressure Position Sitting 12/01/23 18:28 Pulse Oximetry 91 L 12/01/23 18:28 Oxygen Delivery Method Room Air 12/01/23 18:28 Oxygen Flow Rate 0 12/01/23 18:28 Pain Level 5 12/01/23 18:28 Medical Decision Making <Winsome Garcia - Last Filed: 12/01/23 23:15> Quality:SDOH Health Related Social Needs: No Data to Display <Anup Quinones DO - Last Filed: 12/02/23 01:33> Dr. Quinones's documentation: Patient was signed out to me pending follow-up on CT imaging and results. CT imaging has returned, per virtual radiology there is no evidence of acute process or change. Stable obstructing urolith noted, stable left subcapsular and perinephric hematomas, and stable right adrenal mass. Hemoglobin is increasing, vital signs demonstrate no significant tachycardia, hypotension, or signs of shock. Patient is notably stable otherwise. Recommendations from [facility] were for holding the apixaban for the next week. 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 Discussed the case with the patient and he also feels comfortable and is very ready to go home. Patient will be discharged. I have extensively reviewed the treatment plan and discharge instructions with the patient and their family. I have addressed all patient concerns at this time. The patient and family was made aware of what symptoms to monitor for that would warrant a return to the emergency department. Discussed the plan with the patient and family, they demonstrate verbal understanding and agreement with our assessment and plan at this time. The documentation in this chart was dictated using [employer] dictation software. Please excuse any dictation errors. FINDINGS: Liver: Normal. No mass. Gallbladder and biliary ducts: Gallbladder sludge and cholelithiasis. No cholecystitis. No biliary ductal dilatation. Pancreas: Unremarkable. Spleen: Normal. Adrenal glands: Stable right adrenal mass. Kidneys and ureters: Stable obstructing urolith at the left UPJ causing stable severe hydronephrosis. Stable left subcapsular and perinephric hematomas. Nonobstructive nephrolithiasis right kidney. Stomach and bowel: Mild colonic diverticulosis. No diverticulitis. No bowel wall thickening or intestinal obstruction. No pneumatosis or portal/mesenteric venous gas. Appendix: Appendix not visualized. No evidence of appendicitis. Intraperitoneal space: No pneumoperitoneum or abscess. Vasculature: See Stomach and bowel finding Lymph nodes: Unremarkable. Urinary bladder: Unremarkable as visualized. Reproductive: Prostatomegaly. Bones/joints: Chronic postsurgical changes of the pelvic bones. Soft tissues: Unremarkable. IMPRESSION: 1. Stable obstructing urolith at the left UPJ causing stable severe hydronephrosis. 2. Stable left subcapsular and perinephric hematomas. 3. Stable right adrenal mass. Thank you for allowing us to participate in the care of your patient. Dictated and Authenticated by: Rodríguez Gage MD 12/02/2023 1:11 AM Eastern Time ([place] & [place]) [facility] <Winsome Garcia - Last Filed: 12/01/23 23:15> All Active Problems (Updated 12/02/23 @ 00:08 by ARCELIA GARCÍA) Active internal bleeding (Acute) Left leg pain (Acute) Closed hematoma of left kidney (Acute) AAA (abdominal aortic aneurysm) (Acute) Blood in urine (Acute) Morbid obesity (Chronic) Lesion of nose (Acute) Preventative health care (Acute) Tobacco abuse (Chronic) Type 2 diabetes mellitus with diabetic neuropathy, unspecified (Chronic) Spinal stenosis of lumbosacral region (Chronic 08/09/17) Obstructive sleep apnea syndrome (Chronic) Obesity (Chronic) Kidney stone (Chronic) Severe Left obstru. uropathy 05/30 in [place] 2 cm stone at Left UVJ Hyperlipidemia (Chronic) Gastritis (Chronic 12/04/13) esophagitis on EGD 11/24 Fracture of pelvis (Chronic) Remote-fall from ladder status post surgery Essential hypertension (Chronic 01/12/13) Diabetes mellitus (Chronic 07/16/12) Colonoscopy refused (Chronic 10/21/15) Benign prostatic hyperplasia (Chronic 01/18/12) AAA (abdominal aortic aneurysm) without rupture (Chronic) 3.9cm 05/30 Peripheral vascular disease (Chronic) 10/2018-right iliofemoral endarterectomy 08/2019 left iliofemoral, SFA, profunda endarterectomy with patch angioplasty and left FSA-posterior tibial bypass [facility] vascular surgery Basal cell carcinoma (BCC) (Acute) Anemia (Chronic) 2019-, mild Amputated toe (Acute) 2018-amputation left fifth digit-osteomyelitis, [facility] vascular surgery Type 2 diabetes mellitus with diabetic neuropathy, unspecified (Acute) Left greater than right status post infection and fifth toe amputation Nicotine dependence (Acute) 06/2021-about 2 pack/day probable 80+ years pack history Patient declined CT lung-chest screen CAD (coronary artery disease) (Chronic) 2018-modest three-vessel vascular disease per catheterization at [facility]-medical management Eczema of external ear (Acute) Adrenal nodule (Acute) 03/2021-per CT report from [place], 4.4 cm nodule on left that was stable at their institution-consistent with benign lesion Fatty liver (Acute) 03/2021-fatty liver per CT in [place] Medical History Conjunctivitis (R) EYE currently being treated with abx, Madisyn aware. 07/14/21 Surgical History Hx of vein stripping Hx of cataract surgery History of surgery on lower extremity Remote left leg surgery-to repair fracture after fall from ladder, also involved pelvic and low back fracture EGD - MAC (10/28/13) Social History Smoking/Tobacco Use Status: Current every day Tobacco Type: cigarettes Smoking risk assessment performed?: Yes Alcohol Intake: former Drug use: Daily Substance use type: marijuana Details: last marijuanas use 07/30/21 Housing: house Do you feel safe at home: Yes Do you feel safe in your relationship?: Yes Sign Out <Winsome Garcia - Last Filed: 12/01/23 23:15> Sign Out Data: Sign Out Comment: 73 y/o male diagnosed with L kidney hematoma left AMA this afternoon- returned for re-evaluation. H+H stable; discussed case with urology at [facility]- d/c home if no significant change to hematoma on CT scan. Cannot be done until 2300 due to 24 hour contrast limit. Pt has one functional kidney (R). Has a urologist in [place] he can see next week. Last updated by Winsome Jimenes at 12/01/23 21:08
[2023-12-01] MEDS: Nicotine 21 MG/24 HR PATCH TD (19:12)
[2023-12-01 19:19] LABS: HCT 32.3 % (40.0-50.0); HGB 10.5 g/dL (13.5-17.5); MCH 27.1 pg (27.0-33.0); MCHC 32.5 % (32.0-36.0); MCV 83 fL (80-95); MPV 8.5 fL (8.0-11.0); Platelet Count 300 10^3/uL (130-400); RBC 3.88 10^6/uL (4.36-5.78); RDW 19.4 % (11.8-14.1); RDW-SD 59.4 fL; WBC 13.66 10^3/uL (4.4-10.8)
[2023-12-01 19:21] LABS: Bilirubin Negative (Negative); Blood Trace-lysed (Negative); Clarity Clear (Clear); Glucose Negative (Negative); Ketones Negative (Negative); Leukocyte Esterase Negative (Negative); Nitrite Negative (Negative); Specific Gravity 1.015 (1.005-1.025); Urobilinogen 0.2 mg/dL (Up to 0.2); pH 5.5 (5-8)
[2023-12-01 19:27] LABS: Anion Gap 8.1 mmol/L (3-11); BUN 25 mg/dL (7-18); CO2 27.9 mmol/L (21.0-32.0); CREATININE 1.3 mg/dL (0.70-1.30); Calcium 9.2 mg/dL (8.5-10.1); Chloride 102 mmol/L (98-107); Estimated GFR 58.01 (mL/min/1.73m2); Glucose 97 mg/dL (74-106); Potassium 3.9 mmol/L (3.5-5.1); Sodium 138 mmol/L (136-145)
[2023-12-01 19:30] LABS: Bacteria Negative HPF (Negative); C & S Indicated? No; Crystals Negative HPF (Negative); Epithelial Cells Rare HPF (Negative); Mucus Negative (Negative); Other Cells Negative (Negative); WBC 0-2 HPF (0-5)
--- NOTE | 2023-12-01 19:45 | DI.CT_ITS ---
Exam(s) CT ABDOMEN PELVIS W EXAM: CT ABDOMEN PELVIS W CLINICAL HISTORY: recheck hematoma in L kidney. TECHNIQUE: Imaging Protocol: Axial computed tomography images with coronal and sagittal reformatted images were created and reviewed CONTRAST MATERIAL: Intravenous: Omnipaque-350 100cc Oral: None COMPARISON: CT CT ABDOMEN PELVIS WO/W from 10/08/[address] CHEST PE CTA from 12/02/[address] ABD AORTA CTA W RUNOFF from 11/30/2023 FINDINGS: VISUALIZED LUNG BASES: There is mild infiltrate in the left lower lobe posterior basal segment which has slightly increased from 1 day prior. There is no pleural effusion.. ABDOMEN: There is no ascites. LIVER: There are no focal hepatic lesions evident. No dilated intrahepatic ducts. GALLBLADDER/BILIARY: Cholelithiasis is again noted. No gallbladder wall edema nor pericholecystic fl uid CBD is not dilated. PANCREAS: No evidence of pancreatic mass nor dilatation of the pancreatic duct. SPLEEN: Spleen is not enlarged. No obvious intrasplenic lesions. Splenic and portal veins are paten t. ADRENALS: There is a 4.3 x 3.8 cm right adrenal nodule again noted which is unchanged from CT scan of 10/08/2019. KIDNEYS:There is a nonobstructive 6 mm calculus in lower pole calyx of the right kidney. No hydronep hrosis evident on the right side. No significant cysts nor masses in the right kidney. Severe hydro nephrosis of the left kidney is again noted as well as severe proximal dilatation of the proximal lef t ureter. The obstruction is again noted to be caused by a large 2.0 x 1.0 cm calculus in the proxim al-mid left ureter and the severe hydronephrosis above this level has resulted in severe attenuation of the left renal cortex is. Other densities are seen with in the infundibulum in fundus of the left kidney which are either clots or noncalcified renal calculi subjacent hematoma appears stable in siz e from yesterday. ABDOMINAL AORTA: Heavily calcified abdominal aorta with abdominal aortic aneurysm 3.7 cm again noted. There is also significant calcification and aneurysmal dilatation of the calcified common iliac art eries. The maximum diameter of the left common iliac artery aneurysm is 3.4 cm. The maximum diamete r of the right common iliac artery is 3. 3.2 cm on the right side2 cm. LYMPH NODES:There is no retroperitoneal nor paraaortic adenopathy. ABDOMINAL WALL: There appears to be a cellulitis pattern in the skin over the pannus. No drainable a bscess. No anterior abdominal hernia seen. No significant inguinal hernias. GI: There is no evidence of bowel obstruction, free air, nor abscess. PELVIS: GI: No evidence of appendicitis.No evidence of sigmoid diverticulitis. LYMPH NODES: There is no intrapelvic nor inguinal adenopathy. REPRODUCTIVE: Prostate is enlarged and lobulated. URINARY BLADDER: Urinary bladder wall is thickened as well as indented by the enlarged prostate. OSSEOUS: There is fusion hardware across the symphysis pubis again noted. There is also a transverse screw across the left sacroiliac joint with the joint being somewhat diastatic but similar to CT sca n of September 2019. Multilevel chronic degenerative disc disease. No listhesis. IMPRESSION: 1. Very severe left-sided hydronephrosis and proximal left hydroureter again noted which is caused by a large 2.0 x 1.0 cm calculus lodged in the left UPJ/proximal ureter. This was also evident on CT s can of September 2019. There is abnormal streaking around the very attenuated cortex of the very hydron ephrotic left kidney. There is also a ignacio renal hematoma evident which is similar to yesterday's st udy but was not evident in 2019. Nonobstructive calculus in lower pole calyx of the right kidney noted measures 6 mm 2. Enlarged prostate. Abnormally thickened urinary bladder wall. 3. Urology consultation recommended. 4. There is a stable right adrenal mass measuring 4.3 x 3.8 cm, unchanged in size from September 2019. Probably a large adenoma. No findings in the opposite-left adrenal gland. 5. Cholelithiasis again noted. No evidence of acute cholecystitis. 6. Heavily calcified abdominal aorta and iliac arteries. There are very prominent aneurysms of both common iliac arteries, measuring 3.4 cm on the left side. There is also an aneurysm of the abdomina l aorta measuring 3.7 cm. Other findings as above. RADIATION DOSE DELIVERED: 1,495.59mGy.cm Total DLP DATA REPOSITORY: All CT scans at this facility are submitted to the National Radiology Data Registry (NRDR) Dose Index Registry (DIR) with the [employer] (A[employer]). RADIATION OPTIMIZATION: All CT scans at this facility use at least one of these dose optimization te orestes: automated exposure control; mA and/or kV adjustment per patient size (includes targeted exa ms where dose is matched to clinical indication); or iterative reconstruction.
[2023-12-01] MEDS: Normal Saline - Diluent 50 ML VIAL IJ (23:04)
[2023-12-01] MEDS: Omnipaque 350 MG/ML 100 ML BTL IJ (23:05)
--- NOTE | 2023-12-02 01:11 | DI.VRAD_ITS ---
PROCEDURE INFORMATION: Exam: CT Abdomen And Pelvis With Contrast Exam date and time: 12/01/2023 10:57 PM Age: 73 years old Clinical indication: Other: Recheck hematoma in L kidney; Prior surgery; Surgery date: 6+ months; Surgery type: Pelvis fracture hardware TECHNIQUE: Imaging protocol: Computed tomography of the abdomen and pelvis with contrast. Radiation optimization: All CT scans at this facility use at least one of these dose optimization techniques: automated exposure control; mA and/or kV adjustment per patient size (includes targeted exams where dose is matched to clinical indication); or iterative reconstruction. COMPARISON: CT ABDOMEN PELVIS WO/W 10/08/2019 10:45 AM FINDINGS: Liver: Normal. No mass. Gallbladder and biliary ducts: Gallbladder sludge and cholelithiasis. No cholecystitis. No biliary ductal dilatation. Pancreas: Unremarkable. Spleen: Normal. Adrenal glands: Stable right adrenal mass. Kidneys and ureters: Stable obstructing urolith at the left UPJ causing stable severe hydronephrosis. Stable left subcapsular and perinephric hematomas. Nonobstructive nephrolithiasis right kidney. Stomach and bowel: Mild colonic diverticulosis. No diverticulitis. No bowel wall thickening or intestinal obstruction. No pneumatosis or portal/mesenteric venous gas. Appendix: Appendix not visualized. No evidence of appendicitis. Intraperitoneal space: No pneumoperitoneum or abscess. Vasculature: See Stomach and bowel finding. Lymph nodes: Unremarkable. Urinary bladder: Unremarkable as visualized. Reproductive: Prostatomegaly. Bones/joints: Chronic postsurgical changes of the pelvic bones. Soft tissues: Unremarkable. IMPRESSION: 1. Stable obstructing urolith at the left UPJ causing stable severe hydronephrosis. 2. Stable left subcapsular and perinephric hematomas. 3. Stable right adrenal mass. Dictated and Authenticated by: Rodríguez Gage MD. Ordering:RACHEL Schumacher MD
[2023-12-02 01:35] VITALS: BP 145/54; PULSE 81; RESP 20; O2SAT 93
--- NOTE | 2023-12-02 18:36 | NUR.NOTE ---
Nursing Note: Patient had questions about his symptoms
== END 2023-12-02 01:37 | disposition home or self-care (01) ==
PROVIDERS: Nurse Practitioner Family; Emergency Provider Student in an Organized Health Care Education/Training Program; PCP Family Medicine
DX: S37.012A Minor contusion of left kidney, initial encounter (principal); N13.2 Hydronephrosis with renal and ureteral calculous obstruction; K80.20 Calculus of gallbladder without cholecystitis without obstruction; I71.40 Abdominal aortic aneurysm, without rupture, unspecified; I25.10 Atherosclerotic heart disease of native coronary artery without angina pectoris; I10 Essential (primary) hypertension; E78.5 Hyperlipidemia, unspecified; E11.40 Type 2 diabetes mellitus with diabetic neuropathy, unspecified; Z79.01 Long term (current) use of anticoagulants; Z79.84 Long term (current) use of oral hypoglycemic drugs; Z79.82 Long term (current) use of aspirin; F17.210 Nicotine dependence, cigarettes, uncomplicated
CPT/HCPCS: 36415; 80048; 85027; 86850; 86900; 86901; 99285; 74177; 81003; 81015; 99284; J3490

== ENCOUNTER 2023-12-03 08:29 | Emergency (ER) | payer MEDICARE, SELFPAY ==
[2023-12-03] VITALS (18 sets, daily range): BP systolic 99–163; BP diastolic 38–73; PULSE 77–103; RESP 20–32; TEMP 36.9–37.4; O2SAT 93–97
--- NOTE | 2023-12-03 09:06 | ED.GENADUL_ITS ---
Discharge Plan Disposition Patient Disposition: Home Condition: Stable Discharge Details Clinical Impression: Closed hematoma of left kidney, Kidney stone Primary Care Provider: Reno Hernandez ED Provider: Raya Lovett [place] Meds and New Rx's Prescriptions: New gabapentin 100 mg capsule 100 mg PO TID 14 Days Qty: 42 0RF gabapentin 100 mg capsule 100 mg PO TID 14 Days Qty: 42 0RF Continued Complex B-100 Tablet Extended Release 1 tab PO DAILY Ultra CoQ10 75 mg capsule 75 mg PO DAILY glipizide [Glucotrol XL] 5 mg tablet extended release 24hr 5 mg PO DAILY Qty: 90 3RF aspirin [Adult Low Dose Aspirin] 81 mg tablet,delayed release (DR/EC) 81 mg PO DAILY Qty: 1 0RF gentamicin 0.1 % cream 1 applic topical TID PRN (Reason: skin irritation) Qty: 30 0RF atorvastatin 80 mg tablet 80 mg PO QHS Qty: 90 3RF tamsulosin [Flomax] 0.4 mg capsule 0.8 mg PO DAILY Qty: 180 3RF metformin 1,000 mg tablet 1,000 mg PO BID Qty: 180 4RF Rx Instructions: RX'D 01/18/12 lisinopril 40 mg tablet 40 mg PO DAILY Qty: 90 4RF metoprolol tartrate 50 mg tablet 50 mg PO BID Qty: 180 4RF Rx Instructions: RX'D 01/18/12 triamcinolone acetonide 0.1 % cream 1 applic topical BID Qty: 15 1RF Rx Instructions: To affected area at external ear (DME) blood sugar diagnostic Strip 1 ea Miscellaneous DAILY Qty: 90 3RF Rx Instructions: test once/day magnesium 250 mg Tablet 250 mg PO DAILY ascorbic acid (vitamin C) [Vitamin C] 1,000 mg Tablet 1,000 mg PO DAILY Held Eliquis 5 mg tablet 5 mg PO BID Qty: 180 3RF Hold Instructions: Resume on 12/09/23. Discharge Instructions Instructions: Flank Pain ED Additional Instructions: Your labs and imaging show large hematoma is already known on your left kidney but this does not appear to be continuing to bleed or grow in size. I would encourage you to try to rest is much as possible. Encourage hydration. Use the gabapentin as prescribed to help with discomfort. May augment this with Tylenol. Please continue to hold your Eliquis as previously advised. Dr. Christian, our urologist, has been involved in your care today and has asked for a stat consult with [facility] urology to discuss surgical options for your hematoma. If you develop fever/chills, increased pain, vomiting or other new/worsening symptom please seek care urgently once again. Referrals: Enio Fallon [ NON-[facility] STAFF PHYSICIAN] - Reno Hernandez MD [Primary Care Provider] - Discharge Data Discharge Date/Time-TO BE ENTERED AT DEPARTURE: 12/03/23 13:34 [facility] General Date/Time Provider Initiated Documentation: 12/03/23 08:30 . Limitations to Documentation: no limitations . Information obtained by: patient, family, RN notes reviewed and old records reviewed . History of Present Illness 73 year old M presents to the emergency department with the chief complaint of left flank and abdominal pain, described as mild (can spike up and be severe but currently mild), Quality is described as stabbing and aching, and is localized to the abdomen (to left flank). Patient reports no radiation. Patient started experiencing this day(s) and it has been intermittent. Immobilization improves symptom(s), (laying flat) Movement worsens symptoms (being upright) . Patient notes fever/chills (chills, no fever), loss of appetite and nausea/vomiting (intermittent nausea, no vomiting); denies chest pain, cough, headaches, rash, shortness of breath (reports chronic SOB but nothing acute) and syncope. Patient did receive the following treatments prior to arrival, none Related Data Home Medications ?Medication ?Instructions ?Recorded ?Confirmed vitamin B complex (Complex B-100 1 tab PO DAILY 09/02/18 12/03/23 tablet,extended release) coenzyme Q10 75 mg capsule (Ultra 75 mg PO DAILY 10/07/19 12/03/23 CoQ10) aspirin 81 mg tablet,delayed 81 mg PO DAILY #1 tab 07/05/21 12/03/23 release (Adult Low Dose Aspirin) ascorbic acid (vitamin C) 1,000 mg 1,000 mg PO DAILY 07/31/21 12/03/23 tablet (Vitamin C) magnesium 250 mg tablet 250 mg PO DAILY 07/31/21 12/03/23 lisinopril 40 mg tablet 40 mg PO DAILY #90 tab-caps 04/11/23 12/03/23 metformin 1,000 mg tablet 1,000 mg PO BID #180 tab-caps 04/11/23 12/03/23 metoprolol tartrate 50 mg tablet 50 mg PO BID #180 tab-caps 04/11/23 12/03/23 glipizide 5 mg tablet, extended 5 mg PO DAILY #90 tab-caps 07/02/23 12/03/23 release 24 hr (Glucotrol XL) apixaban 5 mg tablet (Eliquis) 5 mg PO BID #180 tabs 11/26/23 12/03/23 atorvastatin 80 mg tablet 80 mg PO QHS #90 tabs 11/26/23 12/03/23 gentamicin 0.1 % topical cream 1 applic topical TID PRN skin 11/26/23 12/03/23 irritation #30 grams tamsulosin 0.4 mg capsule (Flomax) 0.8 mg (2 x 0.4 mg) PO DAILY #180 11/26/23 12/03/23 caps triamcinolone acetonide 0.1 % 1 applic topical BID #15 grams 11/27/23 12/03/23 topical cream blood sugar diagnostic #90 strips 12/03/23 gabapentin 100 mg capsule 100 mg PO TID 14 days #42 caps 12/03/23 gabapentin 100 mg capsule 100 mg PO TID 14 days #42 caps 12/03/23 Previous Rx's ?Medication ?Instructions ?Recorded aspirin 81 mg tablet,delayed 81 mg PO DAILY #1 tab 07/05/21 release (Adult Low Dose Aspirin) lisinopril 40 mg tablet 40 mg PO DAILY #90 tab-caps 04/11/23 metformin 1,000 mg tablet 1,000 mg PO BID #180 tab-caps 04/11/23 metoprolol tartrate 50 mg tablet 50 mg PO BID #180 tab-caps 04/11/23 glipizide 5 mg tablet, extended 5 mg PO DAILY #90 tab-caps 07/02/23 release 24 hr (Glucotrol XL) apixaban 5 mg tablet (Eliquis) 5 mg PO BID #180 tabs 11/26/23 atorvastatin 80 mg tablet 80 mg PO QHS #90 tabs 11/26/23 gentamicin 0.1 % topical cream 1 applic topical TID PRN skin 11/26/23 irritation #30 grams tamsulosin 0.4 mg capsule (Flomax) 0.8 mg (2 x 0.4 mg) PO DAILY #180 11/26/23 caps triamcinolone acetonide 0.1 % 1 applic topical BID #15 grams 11/27/23 topical cream blood sugar diagnostic #90 strips 12/03/23 gabapentin 100 mg capsule 100 mg PO TID 14 days #42 caps 12/03/23 gabapentin 100 mg capsule 100 mg PO TID 14 days #42 caps 12/03/23 Allergies Allergy/AdvReac Type Severity Reaction Status Date / Time No Known Allergies Allergy Verified 12/03/23 08:36 General Stated Complaint: FlankPain KENNEDI: 3 Review of Systems Constitutional Constitutional: Reports as per HPI, Denies fever(s) and Denies headache(s) ENT Ears, Nose, Mouth, and Throat: Denies headache(s) Cardiovascular Cardiovascular: Reports as per HPI, Denies chest pain and Denies dyspnea Respiratory Respiratory: Reports as per HPI, Denies cough and Denies dyspnea Gastrointestinal Gastrointestinal: Reports as per HPI Genitourinary Genitourinary: Reports as per HPI Musculoskeletal Musculoskeletal: Reports as per HPI Neurologic Neurologic: Denies headache(s) Exam Const General: cooperative, healthy appearing, comfortable, no acute distress, well developed and anxious Nutritional Appearance: well nourished and obese Orientation: alert and awake Resp Effort & Inspection: normal respiratory effort and no respiratory distress Auscultation: clear to auscultation bilaterally, no rales, no rhonchi and no wheezes Cardio Rate: regular rate Rhythm: regular rhythm Heart Sounds: S1 normal and S2 normal GI Inspection: normal to inspection, no edema, large pannus and obesity Palpation: soft, no hepatosplenomegaly, no guarding, no hernias, no pulsatile masses and tender in the LLQ; with no rebound tenderness Percussion: normal to percussion Auscultation: normal bowel sounds Back/Spine/Pelvis Back: CVA tenderness (left side) Skin General skin exam: no rashes or lesions noted Neuro General: patient alert and patient awake Cognition: normal cognition Speech: speech normal Gait: normal gait Extrem General: other (chronic discoloration PVD, scars from vascular surgery, missing 5th toe lef) Course Vital Signs Vital signs: Vital Signs Temperature 36.9 C 12/03/23 08:33 Pulse 103 H 12/03/23 08:33 Respiratory Rate 20 12/03/23 08:33 Blood Pressure 163/66 H 12/03/23 08:33 Pulse Oximetry 94 12/03/23 08:33 Temperature 36.9 C 12/03/23 08:33 Temperature Source Oral 12/03/23 08:33 Pulse 103 H 12/03/23 08:33 Respiratory Rate 20 12/03/23 08:33 Respiratory Effort Normal, Non-Labored 12/03/23 08:38 Blood Pressure 163/66 H 12/03/23 08:33 Pulse Oximetry 94 12/03/23 08:33 Oxygen Delivery Method Room Air 12/03/23 08:33 Oxygen Flow Rate 0 12/03/23 08:33 Pain Level 2 12/03/23 08:33 Medical Decision Making Patient is a pleasant 73-year-old male, accompanied by significant other, past medical history significant for active internal bleeding, anemia, chronic kidney stone, AAA without rupture, type 2 diabetes, diabetic neuropathy, peripheral vascular disease, CAD, hyperlipidemia, tobacco abuse, morbid obesity, presenting today with chief complaint of left-sided flank pain. Patient was admitted to the hospital on 12/01/2023 for renal hematoma on the left side. Patient had a drop in hemoglobin throughout his admission patient became very anxious and decided to leave [place]. Patient has had urologic issues in the past such as large stone, hematuria and is followed by urologist in [place]. However, with the pain that he continues to have he does not feel that he is able to go to [place] at this time. He denies any fevers states that he has had some chills. Said some left-sided abdominal discomfort and endorses some constipation for the past 4 days with small bowel movements, all of which have been nonbloody. No nausea or vomiting. He has not noted any pam blood in his urine but states that it has been slightly concentrated. Patient reports the pain is significantly worse when he is upright and improves with laying supine. No known trauma. Patient had been on Eliquis but has been holding this since the diagnosis was made. Has not taken his morning medications. Patient tried Myralax without help for his constipation. On exam, patient appears anxious but otherwise nontoxic. He is hemodynamically stable. Normal cardiac exam. Lungs are clear. Patient is tender along the left side of his abdomen but no peritoneal findings. Does feel slightly firm over here, may be associated with the known hematoma and additional constipation. No bruising or ecchymosis. He does have some tenderness with palp percussion over the left CVA. No right-sided tenderness or epigastric pain. No pain over the bladder. Patient has large scars from previous vascular surgeries, particular on the left leg. He does have difficult pulse to palpate in that leg but he does have intact capillary refill. Patient does endorse some shortness of breath but reports that this is unchanged from his baseline associates with smoking 2 packs daily. He is requesting a nicotine patch which we will give. Patient also appears quite anxious and I am concerned that he will try to leave AMA once again. He is amenable to anxiety lytic will give do se of Ativan. Patient reports that any dosing of opioids can significantly increase his constipation so we will hold on this for now. Also consult with urology, obtain repeat blood work and refer to CT scan. During admission, his case had been discussed with Dr. Rodriguez at [facility] u[place]. they recommended holding anticoagulation for one week. Spoke with Dr. Christian about type of CT, he recommended non-con CT. He advised that patient would likely need nephrectomy but this does not need to be urgent unless active bleeding, pain control or infected. We also discussed pain options, he suggested gabapentin. He will also place an urgent referral to . We discussed possibility of infection and he feels that patient would likely be septic if he had infection in that large of a hematoma. CBC shows WBC of 13.2 which is unchanged, Hgb 10.1, largely unchanged from Hgb at 10.5 CMP without sigfnicant pain. Lipase obtain with left sided abdominal pain, WNL. IMPRESSION: 1. Continued presence of severe left renal hydronephrosis due to the previously described 2 x 1 cm large obstructing calculus in the upper left ureter with severe dilatation of the left renal pelvis and infundibulum I above this level and severe attenuation of the left renal cortex. There is perinephric streaking and hematoma which appears similar in size to yesterday. There is some continued bleeding evident with in the intrarenal collecting system. The ureter below the level of the calculus is prominent and most probably filled with the clot material. 2. There is no hydronephrosis of the opposite-right kidney. Few intrarenal calculi in the right kidney are again noted, the largest measuring 6 mm and located in the lower pole calyx. The right ureter is not dilated. 3. Urinary bladder is not distended. Is slightly indented by the enlarged prostate gland. 4. Stable 4.3 x 3.8 cm mass in the right adrenal gland which is probably an adenoma as it is unchanged from September [address] scan. Will speak again with Dr. Christian, images pushed to . Urinalysis significant for large blood which patient has chronically had, trace bilirubin which is also had in the past as well as moderate bacteria although it did appear slightly contaminated no culture was indicated. Dr. Christian advised that plan as above is appropriate. Patient did have some relief with his gabapentin, will continue with this. Recommend some [id number] stool softeners. Encourage hydration. Dr. Christian sent stat referral to [facility] urology team. Return precautions were discussed with the patient. We discussed activities that he should avoid. He will continue to hold his anticoagulation. Discussed plan with patient who is in agreement. All of his questions and concerns were addressed and he is agreement's plan. This documentation was generated using [employer] dictation system, please disregard any oddities of phrase or misspellings. Quality:SDOH Health Related Social Needs: No Data to Display [facility] All Active Problems (Updated 12/03/23 @ 12:30 by CODIE Vo) Closed hematoma of left kidney (Acute) Active internal bleeding (Acute) Left leg pain (Acute) Closed hematoma of left kidney (Acute) AAA (abdominal aortic aneurysm) (Acute) Blood in urine (Acute) Morbid obesity (Chronic) Lesion of nose (Acute) Preventative health care (Acute) Tobacco abuse (Chronic) Type 2 diabetes mellitus with diabetic neuropathy, unspecified (Chronic) Spinal stenosis of lumbosacral region (Chronic 08/09/17) Obstructive sleep apnea syndrome (Chronic) Obesity (Chronic) Kidney stone (Chronic) Severe Left obstru. uropathy 05/30 [place] 2 cm stone at Left UVJ Hyperlipidemia (Chronic) Gastritis (Chronic 12/04/13) esophagitis on EGD 11/24 Fracture of pelvis (Chronic) Remote-fall from ladder status post surgery Essential hypertension (Chronic 01/12/13) Diabetes mellitus (Chronic 07/16/12) Colonoscopy refused (Chronic 10/21/15) Benign prostatic hyperplasia (Chronic 01/18/12) AAA (abdominal aortic aneurysm) without rupture (Chronic) 3.9cm 05/30 Peripheral vascular disease (Chronic) 10/2018-right iliofemoral endarterectomy 08/2019 left iliofemoral, SFA, profunda endarterectomy with patch angioplasty and left FSA-posterior tibial bypass [facility] vascular surgery Basal cell carcinoma (BCC) (Acute) Anemia (Chronic) 2019-, mild Amputated toe (Acute) 2018-amputation left fifth digit-osteomyelitis, [facility] vascular surgery Type 2 diabetes mellitus with diabetic neuropathy, unspecified (Acute) Left greater than right status post infection and fifth toe amputation Nicotine dependence (Acute) 06/2021-about 2 pack/day probable 80+ years pack history Patient declined CT lung-chest screen CAD (coronary artery disease) (Chronic) 2018-modest three-vessel vascular disease per catheterization at [facility]-medical management Eczema of external ear (Acute) Adrenal nodule (Acute) 03/2021-per CT report from [place], 4.4 cm nodule on left that was stable at their institution-consistent with benign lesion Fatty liver (Acute) 03/2021-fatty liver per CT in [place] Medical History Conjunctivitis (R) EYE currently being treated with abx, Madisyn aware. 07/14/21 Surgical History Hx of vein stripping Hx of cataract surgery History of surgery on lower extremity Remote left leg surgery-to repair fracture after fall from ladder, also involved pelvic and low back fracture EGD - [facility] (10/28/13) Social History Smoking/Tobacco Use Status: Current every day Tobacco Type: cigarettes Smoking risk assessment performed?: Yes Alcohol Intake: former Drug use: Daily Substance use type: marijuana Details: last marijuanas use 07/30/21 Housing: house Do you feel safe at home: Yes Do you feel safe in your relationship?: Yes
[2023-12-03 09:46] LABS: Absolute Basophil Count 0.03 10^3/uL (0.0-0.2); Absolute Eosinophil Count 0.04 10^3/uL (0.0-0.7); Absolute Lymphocyte Count 0.52 10^3/uL (1.2-3.4); Absolute Monocyte Count 0.82 10^3/uL (0.1-0.8); Absolute Neutrophil Count 11.72 10^3/uL (1.2-6.7); Basophils % 0.2 %; Eosinophils % 0.3 %; HCT 31.4 % (40.0-50.0); HGB 10.1 g/dL (13.5-17.5); Immature Grans % 0.8 %; Lymphocytes % 3.9 %; MCH 26.9 pg (27.0-33.0); MCHC 32.2 % (32.0-36.0); MCV 84 fL (80-95); MPV 8.6 fL (8.0-11.0); Monocytes % 6.2 %; Neutrophils % 88.6 %; Platelet Count 297 10^3/uL (130-400); RBC 3.75 10^6/uL (4.36-5.78); RDW 18.6 % (11.8-14.1); RDW-SD 57.4 fL; WBC 13.23 10^3/uL (4.4-10.8)
[2023-12-03] MEDS: LORazepam 2 MG/ML VIAL 0.5 MG IVP (09:56)
[2023-12-03] MEDS: Nicotine 21 MG/24 HR PATCH TD (09:56)
[2023-12-03 10:00] LABS: Lipase 28 U/L (16-77)
--- NOTE | 2023-12-03 10:00 | DI.CT_ITS ---
Exam(s) CT ABDOMEN PELVIS WO EXAM: CT ABDOMEN PELVIS WO CLINICAL HISTORY: recheck of left renal hematoma for enlargement. TECHNIQUE: Imaging Protocol: Axial computed tomography images with coronal and sagittal reformatted images were created and reviewed CONTRAST MATERIAL: Intravenous: none Oral: None COMPARISON: CT CT ABDOMEN PELVIS W from 12/01/2023 FINDINGS: VISUALIZED LUNG BASES: Again noted is mild infiltrate in left lower lobe posterior basal segment, unc hanged from yesterday.. ABDOMEN LIVER: There are no obvious focal hepatic lesions evident of this noninfused study. GALLBLADDER/BILIARY: Cholelithiasis again noted. No gallbladder wall edema nor pericholecystic fluid . CBD is not dilated. PANCREAS: No evidence of pancreatic mass nor dilatation of the pancreatic duct. SPLEEN: Spleen is not enlarged. No obvious intrasplenic lesions. ADRENALS: The previously described 4.3 x 3.8 cm right adrenal nodule is again noted and remains uncha nged from September 2019. There is no mass in the left adrenal gland. KIDNEYS:Nonobstructive 6 mm calculus lower pole the right kidney is again noted. There is no hydrone phrosis on the right side. There is severe hydronephrosis of the left kidney again noted related to the previously described 2 x 1 cm calculus the lower aspect of the UPJ, unchanged in position. There is abundant streaking around this severely hydronephrotic left kidney and proximal left ureter which appears similar to yesterday consistent with back pressure and probable hematoma there is also densi ty with in the kidney itself which is probably some hemorrhage within the significantly dilated infun dibulum I. the left ureter below the level of the calculus remains dilated and most probably filled w ith clot material. Urinary bladder is not distended. Opposite-right ureter is not dilated.. ABDOMINAL AORTA: Abdominal aorta is heavily calcified and and unchanged. 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 Aneurysm of the abdominal aorta measures 3.7 cm and aneurysm of the left common iliac artery measures 3.4 cm and right common iliac artery 3.2 cm. LYMPH NODES: Small anterior abdominal wall umbilical hernia. Also cellulitis pattern over the skin o f the pannus no drainable subcutaneous abscess. ABDOMINAL WALL: No evidence of significant anterior abdominal wall nor inguinal hernia. GI: There is no evidence of bowel obstruction, free air, nor abscess. PELVIS: LYMPH NODES: There is no intrapelvic nor inguinal adenopathy. GI: No evidence of appendicitis.No evidence of sigmoid diverticulitis. URINARY BLADDER: Indented by the enlarged prostate REPRODUCTIVE: Enlarged prostate. OSSEOUS: Previously described CIS pelvic hardware across symphysis pubis and left sacroiliac joint ag ain noted. Also multilevel chronic degenerative disc disease. IMPRESSION: 1. Continued presence of severe left renal hydronephrosis due to the previously described 2 x 1 cm la rge obstructing calculus in the upper left ureter with severe dilatation of the left renal pelvis and infundibulum I above this level and severe attenuation of the left renal cortex. There is perinephr ic streaking and hematoma which appears similar in size to yesterday. There is some continued bleedi ng evident with in the intrarenal collecting system. The ureter below the level of the calculus is p rominent and most probably filled with the clot material. 2. There is no hydronephrosis of the opposite-right kidney. Few intrarenal calculi in the right kidn ey are again noted, the largest measuring 6 mm and located in the lower pole calyx. The right ureter is not dilated. 3. Urinary bladder is not distended. Is slightly indented by the enlarged prostate gland. 4. Stable 4.3 x 3.8 cm mass in the right adrenal gland which is probably an adenoma as it is unchang ed from September 2019 CT scan. Other findings as above, unchanged from yesterday. Findings called by myself to ER 12/03/2023 11:05 a.m. RADIATION DOSE DELIVERED: 1,149.82mGy.cm Total DLP DATA REPOSITORY: All CT scans at this facility are submitted to the National Radiology Data Registry (NRDR) Dose Index Registry (DIR) with the [employer] (A[employer]). RADIATION OPTIMIZATION: All CT scans at this facility use at least one of these dose optimization te chniques: automated exposure control; mA and/or kV adjustment per patient size (includes targeted exa ms where dose is matched to clinical indication); or iterative reconstruction.
[2023-12-03 10:02] LABS: INR 1.1 (0.9-1.1); Prothrombin Time 11.2 sec (9.1-11.1)
[2023-12-03 10:05] LABS: ALT 29 U/L (16-63); AST 22 U/L (15-37); Albumin 2.6 g/dL (3.4-5.0); Alkaline Phosphatase 61 U/L (46-116); Anion Gap 10.2 mmol/L (3-11); BUN 21 mg/dL (7-18); CO2 24.8 mmol/L (21.0-32.0); Calcium 9.1 mg/dL (8.5-10.1); Chloride 103 mmol/L (98-107); Estimated GFR 79.47 (mL/min/1.73m2); Glucose 141 mg/dL (74-106); Potassium 4.1 mmol/L (3.5-5.1); Sodium 138 mmol/L (136-145); Total Protein 7.6 g/dL (6.4-8.2)
[2023-12-03] MEDS: Gabapentin 100 MG CAP PO (11:27)
[2023-12-03 12:39] LABS: Bilirubin Small (Negative); Blood Large (Negative); Clarity Cloudy (Clear); Glucose Negative (Negative); Ketones 80 mg/dL (Negative); Leukocyte Esterase Trace (Negative); Nitrite Negative (Negative); Urobilinogen 0.2 mg/dL (Up to 0.2); pH 5.5 (5-8)
[2023-12-03 12:46] LABS: Bacteria Moderate HPF (Negative); C & S Indicated? No; Casts Negative LPF (Negative); Crystals Few Amorphous HPF (Negative); Epithelial Cells Rare HPF (Negative); Mucus Trace (Negative); RBC 20-50 HPF (0-2)
== END 2023-12-03 13:34 | disposition home or self-care (01) ==
PROVIDERS: Emergency Provider Physician Assistant; PCP Family Medicine
DX: N20.0 Calculus of kidney; S37.012A Minor contusion of left kidney, initial encounter; R10.32 Left lower quadrant pain; X58.XXXA Exposure to other specified factors, initial encounter; E11.40 Type 2 diabetes mellitus with diabetic neuropathy, unspecified; E11.9 Type 2 diabetes mellitus without complications
CPT/HCPCS: 36415; 80053; 83690; 86850; 86900; 86901; 96374; 99284; 74176; 81003; 81015; 85025; 85610; 85730; J2060

== ENCOUNTER 2024-06-22 01:56 | Outpatient (CLI) | payer MEDICARE, SELFPAY ==
--- NOTE | 2024-06-22 13:30 | DI.US_ITS ---
APPROVED REPORT EXAM: Comprehensive 2D, Doppler, and color-flow Echocardiogram Patient Location: Out-Patient Tube Winder Hand: Keron Rodríguez RDCS (AE) Indications: Reduced EF on prior MP scan, preop cardiac clearance, hypertension Other Information Study Quality: Adequate Conclusion Normal left ventricular wall thickness. Mildly dilated left ventricle. Ejection fraction is 55%. W all motion is normal Normal right ventricular size and function Mildly enlarged left atrium. normal right atrial size Mitral annular calcification. Mild mitral regurgitation Ascending aorta measures 4 cm Wall motion Left Ventricle The left ventricle is normal size. The left ventricular systolic function is normal. The left ventric ular ejection fraction is within the normal range. There is normal left ventricular wall thickness. T here is normal LV segmental wall motion. There is no ventricular septal defect visualized. LVEF is 55 %. Right Ventricle The right ventricle is normal size. Right ventricular systolic function is grossly normal. Atria Left atrium is mildly dilated. The right atrium size is normal. The interatrial septum is intact with no evidence for an atrial septal defect. Aortic Valve The aortic valve is normal in structure. Aortic valve is trileaflet. There is no aortic valvular sten osis. No aortic regurgitation is present. Mitral Valve Moderate mitral annular calcification. No evidence of mitral valve stenosis. Mild mitral regurgitatio n. Tricuspid Valve The tricuspid valve is normal in structure. There is no tricuspid valve stenosis. Trace tricuspid reg urgitation. Pulmonic Valve The pulmonary valve is normal in structure. There is no pulmonic valvular stenosis. There is no pulmo shayne valvular regurgitation. Great Vessels The aortic root is normal in size. The ascending aorta is moderately dilated. IVC is normal in size a nd collapses >50% with inspiration. Pericardium There is no pericardial effusion. 2D Dimensions IVSD d PLAX 1.30 cm M: 0.6-1.2 Ao Root d 3.77 cm M: 3.1 - 3.7 LVPW d PLAX 1.31 cm M: 0.6 - 1.2 Ao Asc Diam d 4.00 cm M: 2.6 - 3.4 LVID d PLAX 6.69 cm M: 4.2 - 5.8 LVDs 4.93 cm M: 2.5 - 4.0 LV EF Teichholz 50.2 % FS 26.22 % LV EDV (Teich) 230.7 mL LV ESV (Teich) 114.9 mL Stroke Vol Index (Teich) 48.86 M-Mode TAPSE 3.17 cm (M/F) >1.7 Auto EF LV EDV A4C 248.8 mL LV EDV A2C 143.3 mL LV EDV BP 192.3 mL LV ESV A4C 111.2 mL LV ESV A2C 58.2 mL LV ESV BP 85.0 mL LVEF(%) A4C 55.3 % LVEF(%) A2C 59.4 % LVEF(%) BP 55.8 % LV SV A4C 137.6 ml LV SV A2C 85.1 ml LV SV BP 107.4 ml LV CO A4C 5.9 L/min LV CO A2C 4.7 L/min LV CO BP 5.3 L/min HR A4C 42.76 BPM HR A2C 55.30 BPM LV EDV Index (BP) LV Volumes - Method of Disks (Morales's) Single Plane 2D LV Volumes Biplane 2D LV Volumes LV EDV A4C 196.0 mL LV EDV BP 165.41 mL M: 62 - 150 LV ESV A4C 97.6 mL LV ESV BP 81.1 mL LVEF(%) A4C 50.2 % LVEF(%) BP 50.99 % M: 52 - 72 LV EDV A2C 119.9 mL LV EDV BP Index 69.79 mL/m2 M: 34 - 74 LV ESV A2C 57.6 mL SV BP LVEF(%) A2C 51.9 % SV Index LA Volume LA Length A4C 5.8 cm LA Length A2C 5.9 cm LA Area A4C s 22.20 cm2 LA Area A2C s 22.00 cm2 LA Vol A4C A-L 72.16 mL LA Vol A2C A-L 69.53 mL LA Vol Biplane A-L 75.0 mL LA Vol/BSA A4C A-L LA Vol/BSA A2C A-L LA Vol/BSA BP A-L 31.6 mL/m2 LA Vol A4C MOD 65.7 mL LA Vol A2C MOD 66.2 mL LA Vol BP MOD 69.6 mL RA Volume RA Area A4C 10.4 cm2 RA ESV A4C (A-L) 19.9mL RA Vol/BSA A4C A-L RA Length A4C 4.6 cm RA ESV A4C (MOD) 19.0mL LV Diastology MV E' medial 0.048 (>0.07 m/s) MV E Vmax 0.60 (0.4-1.3 m/s) MV E/E' MED 12.53 (<14) MV A Vmax 0.95 (0.4-1.3 m/s) MV E' lateral 0.040 (>0.1 m/s) E/A Ratio 0.6 MV E/E' LAT 15.07 (<14) MV E' Average 0.044 m/s MV E/E'(average) 13.68 Aortic Valve AoV Vmax 1.12 m/s LVOT Vmax 1.13 m/s AoV Peak Grad 5.0 mmHg LVOT Peak Grad 5.1 mmHg AoV Area (Vmax) 4.54 cm2 LVOT VTI 0.230 m AoV VTI 0.266 m LVOT Mean Grad 2.7 mmHg AoV Mean Cheikh. 0.79 m/s LVOT SV 103.68 mL AoV Mean Grad 2.9 mmHg LVOT Diam s 2.35 cm AoV Area (VTI) 3.90 cm2 AV Regurg Peak Gr. 5.01 mmHg Velocity Ratio 1.01 Mitral Valve MV DT 278 (160-240 msec) Pulmonary Valve RVOT Vmax 0.78 m/s RVOT Peak Gr. 2.4 mmHg RVOT VTI 0.173 m RVOT Mean Gr. 1.3 mmHg
== END 2024-06-22 02:16 ==
LOC: DI 01:56
PROVIDERS: PCP Family Medicine; Visit Provider Internal Medicine Cardiovascular Disease
DX: I10 Essential (primary) hypertension (principal)
CPT/HCPCS: 93306

== ENCOUNTER 2024-06-26 12:19 | Outpatient (CLI) | payer MEDICARE, SELFPAY ==
--- NOTE | 2024-06-26 12:15 | RT.EKG_ITS ---
APPROVED REPORT Exam: Resting ECG Reason for Exam: baseline Patient Location: O HR:65 bpm ECG Measurements Heart Rate 65 AXIS RI 185 P 6 QRSd 112 QRS 17 QT 414 T [id number] QTc 431 Conclusion Sinus rhythm...normal P axis, V-rate 50- 99 Borderline intraventricular conduction delay...QRSd >112mS
== END 2024-06-26 12:20 | disposition home or self-care (01) ==
LOC: DI.CARD 12:19
PROVIDERS: PCP Family Medicine; Visit Provider Internal Medicine Cardiovascular Disease
DX: I25.10 Atherosclerotic heart disease of native coronary artery without angina pectoris (principal)
CPT/HCPCS: 93010

== ENCOUNTER → 2024-06-26 12:32 | Outpatient (BNVA) | payer MEDICARE, SELFPAY | PROVIDERS: PCP Family Medicine; Referring Provider Family Medicine; Visit Provider Internal Medicine Cardiovascular Disease | DX: I25.10 Atherosclerotic heart disease of native coronary artery without angina pectoris (principal); F17.200 Nicotine dependence, unspecified, uncomplicated | CPT/HCPCS: 99215; 93005 ==

== ENCOUNTER 2024-07-02 02:04 | Outpatient (CLI) | payer MEDICARE, SELFPAY ==
--- NOTE | 2024-07-02 06:45 | DI.NM_ITS ---
APPROVED REPORT Exam: Pharmacologic Patient Location: Out-Patient Room/Bed: Stress Nurse: Ebonie Harrison RN, Jayne Carcamo RN Ordering Provider:GUERRERO CORCORAN, Contact Number: BMI: 39.31 Baseline Rhythm: Sinus Bradycardia Comment: occasional PVCs Indications: preoperative evaluation, CAD Medical History Medical History: AAA, Morbid obesity, Tobacco abuse, RIANA,HLD,HTN,DMT2, PVD, anemia, CAD Cardiac Medications: eliquis, aspirin, atorvastation, furosemide, glipizide,lisinopril, magnesium, me tformin, metoprolol succinate, flomax Allergies: NKA Cardiac Risk Factors: diabetes, HTN, HLD, PVD, CVD, smoker, obesity Previous Cardiac Procedures: cadiac cath Pretest Chest Pain Characteristics: none Exercise History: Sedentary Physical Disabilities: wheelchair use and hx imbalance Lung Sounds: Clear to auscultation Heart Sounds: Regular Stress Test Details Test: Pharmacologic stress testing performed using 0.4 mg of regadenoson per 5 mL given IV over 10 s econds. Reason for pharmacologic stress test: physical limitation. Nuclear Acquisition: Rest Tc-99m/Stress Tc-99m 1 day Rest Isotope: Tc-99m Sestamibi. Dose: 12.0 Date: 07/02/2024 Injection Time: 0915 Stress Isotope: Tc-99m Sestamibi. Dose: 36.0 Date: 07/02/2024 Injection Time: 1100 HR Resting HR Supine: 57 bpm Max Heart Rate (APMHR): 146 bpm Target HR (85% APMHR): 124 bpm Max HR Achieved: 81 bpm % of APMHR: 55 Recovery HR: 71 bpm BP Resting BP Supine: 114/78 mmHg Max BP: 138/70 mmHg Recovery BP: 128/68 mmHg ECG Resting ECG: Sinus Bradycardia Ectopy: occasional PVCs Stress ECG: Sinus Rhythm ST Change: Nondiagnostic low heart rate Arrhythmia: occasional PVCs Recovery ECG: Sinus Rhythm Recovery ST Change: Nondiagnostic low heart rate Recovery Arrhythmia: occasional PVCs Clinical Stress Symptoms: mod SOB, mod abd pain Angina Score: None Rate Pressure Product: [id number] Stress ECG Conclusion 1. Resting electrocardiogram showed an IVCD and nondiagnostic ST-T abnormalities 2. Patient underwent testing using pharmacologic stress with regadenoson 3. Peak heart rate achieved was 52% of maximal predicted for age 4. The electrocardiographic portion of the test was nondiagnostic 5. There were occasional premature ventricular contractions 6. See MPI report Stress Test Summary STAGE HR BP SpO2 Symptoms NOTES Supine 57 114/78 1 min post Lexiscan injection 65 122/74 94 mod SOB, mod abd pain 3 min post Lexiscan injection 75 138/70 96 mod SOB, mod abd pain 6 min post Lexiscan injection 71 128/68 all symptoms resolved all symptoms resolved at test end. Patient able to transfer to wheelchair independently from [facility] left in wheelchair in no apparent distress. MPI Conclusion Myocardial perfusion is negative for significant ischemia. 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 Left ventricle is mildly enlarged. There is an inferobasal wall motion abnormality
[2024-07-02] MEDS: Regadenoson 0.4 MG/5 ML SYR IVP (11:00)
== END 2024-07-02 02:24 ==
LOC: DI 02:05
PROVIDERS: PCP Family Medicine; Visit Provider Internal Medicine Cardiovascular Disease
DX: I25.10 Atherosclerotic heart disease of native coronary artery without angina pectoris (principal); Z01.818 Encounter for other preprocedural examination
CPT/HCPCS: 78452; 93016; 93018; 93017; J2785

== ENCOUNTER 2024-08-04 18:34 | Outpatient (REF) | payer MEDICARE, SELFPAY ==
[2024-08-04 15:24] LABS: Bilirubin Negative (Negative); Blood Trace-intact (Negative); Clarity Clear (Clear); Glucose Negative (Negative); Ketones Negative (Negative); Leukocyte Esterase Negative (Negative); Nitrite Negative (Negative); Urobilinogen 0.2 mg/dL (Up to 0.2); pH 5.5 (5-8)
[2024-08-04 15:33] LABS: Bacteria Few HPF (Negative); Epithelial Cells Rare HPF (Negative); RBC 0-2 HPF (0-2); WBC 20-50 HPF (0-5)
[2024-08-04 15:34] LABS: C & S Indicated? Yes; Casts Negative LPF (Negative); Crystals Negative HPF (Negative); Mucus Negative (Negative)
== END 2024-08-04 18:35 | disposition home or self-care (01) ==
LOC: LBN 18:34
PROVIDERS: PCP Family Medicine; Visit Provider Nurse Practitioner
DX: C79.10 Secondary malignant neoplasm of unspecified urinary organs (principal)
CPT/HCPCS: 81003; 81015; 87086

== ENCOUNTER 2024-09-01 02:40 | Outpatient (RCR) | payer MEDICARE, SELFPAY ==
[2024-08-11] MEDS: Normal Saline Flush 10 ML SYR IVP (09:35)
[2024-08-11 09:38] LABS: Abs Immature Grans 0.04 10^3/uL (0.0-0.06); HCT 34.2 % (40.0-50.0); HGB 11.2 g/dL (13.5-17.5); Immature Grans % 0.4 %; MCH 27.1 pg (27.0-33.0); MCHC 32.7 % (32.0-36.0); MCV 83 fL (80-95); MPV 8.4 fL (8.0-11.0); Platelet Count 337 10^3/uL (130-400); RBC 4.14 10^6/uL (4.36-5.78); RDW 17.2 % (11.8-14.1); RDW-SD 51.8 fL; WBC 9.73 10^3/uL (4.4-10.8)
[2024-08-11 09:56] LABS: ALT 22 U/L (16-63); AST 15 U/L (15-37); Albumin 2.9 g/dL (3.4-5.0); Alkaline Phosphatase 76 U/L (46-116); Anion Gap 9.8 mmol/L (3-11); BUN 15 mg/dL (7-18); Bilirubin, Total 0.8 mg/dL (0.2-1.0); CO2 26.2 mmol/L (21.0-32.0); Calcium 8.8 mg/dL (8.5-10.1); Chloride 102 mmol/L (98-107); Estimated GFR 96.69 (mL/min/1.73m2); Glucose 129 mg/dL (74-106); Potassium 4.1 mmol/L (3.5-5.1); Sodium 138 mmol/L (136-145); Total Protein 7.0 g/dL (6.4-8.2)
[2024-08-25] MEDS: Normal Saline Flush 10 ML SYR IVP (09:23)
[2024-08-25 09:24] LABS: Abs Immature Grans 0.06 10^3/uL (0.0-0.06); HCT 32.2 % (40.0-50.0); HGB 10.5 g/dL (13.5-17.5); Immature Grans % 0.6 %; MCH 27.1 pg (27.0-33.0); MCHC 32.6 % (32.0-36.0); MCV 83 fL (80-95); MPV 8.7 fL (8.0-11.0); Platelet Count 399 10^3/uL (130-400); RBC 3.87 10^6/uL (4.36-5.78); RDW 17.0 % (11.8-14.1); RDW-SD 50.8 fL; WBC 9.85 10^3/uL (4.4-10.8)
[2024-08-25 09:48] LABS: ALT 29 U/L (16-63); AST 21 U/L (15-37); Albumin 2.8 g/dL (3.4-5.0); Alkaline Phosphatase 79 U/L (46-116); Anion Gap 10.1 mmol/L (3-11); BUN 13 mg/dL (7-18); Bilirubin, Total 0.5 mg/dL (0.2-1.0); CO2 25.9 mmol/L (21.0-32.0); Calcium 8.6 mg/dL (8.5-10.1); Chloride 103 mmol/L (98-107); Estimated GFR 92.87 (mL/min/1.73m2); Glucose 153 mg/dL (74-106); Potassium 4.2 mmol/L (3.5-5.1); Sodium 139 mmol/L (136-145); TSH 0.89 uIU/mL (0.36-3.74); Total Protein 6.7 g/dL (6.4-8.2)
[2024-08-25 10:50] LABS: Iron 25 ug/dL (65-175)
[2024-08-25 11:03] LABS: Ferritin 89 ng/mL (26-388)
[2024-09-01 09:26] LABS: Abs Immature Grans 0.06 10^3/uL (0.0-0.06); HCT 34.2 % (40.0-50.0); HGB 11.0 g/dL (13.5-17.5); Immature Grans % 0.5 %; MCH 27.0 pg (27.0-33.0); MCHC 32.2 % (32.0-36.0); MCV 84 fL (80-95); MPV 8.8 fL (8.0-11.0); Platelet Count 393 10^3/uL (130-400); RBC 4.07 10^6/uL (4.36-5.78); RDW 17.6 % (11.8-14.1); RDW-SD 52.7 fL; WBC 11.19 10^3/uL (4.4-10.8)
[2024-09-01] MEDS: Normal Saline Flush 10 ML SYR IVP (09:48)
[2024-09-01 10:07] LABS: ALT 32 U/L (16-63); AST 24 U/L (15-37); Albumin 3.0 g/dL (3.4-5.0); Alkaline Phosphatase 91 U/L (46-116); Anion Gap 9.6 mmol/L (3-11); BUN 12 mg/dL (7-18); Bilirubin, Total 0.7 mg/dL (0.2-1.0); CO2 26.4 mmol/L (21.0-32.0); Calcium 8.9 mg/dL (8.5-10.1); Chloride 101 mmol/L (98-107); Estimated GFR 96.69 (mL/min/1.73m2); Glucose 165 mg/dL (74-106); Potassium 4.5 mmol/L (3.5-5.1); Sodium 137 mmol/L (136-145); TSH 1.13 uIU/mL (0.36-3.74); Total Protein 6.9 g/dL (6.4-8.2)
== END 2024-09-10 23:59 | disposition home or self-care (01) ==
LOC: INF 02:40
PROVIDERS: Nurse Practitioner; PCP Family Medicine; Visit Provider Internal Medicine
DX: C79.10 Secondary malignant neoplasm of unspecified urinary organs (principal); R39.15 Urgency of urination; Z79.899 Other long term (current) drug therapy; Z45.2 Encounter for adjustment and management of vascular access device
CPT/HCPCS: 36591; 80053; 82728; 83540; 84439; 84443; 85025; 87086

== ENCOUNTER 2024-10-06 02:30 | Outpatient (RCR) | payer MEDICARE, SELFPAY ==
[2024-09-15] MEDS: Normal Saline Flush 10 ML SYR IVP (09:46)
[2024-09-15 09:54] LABS: Abs Immature Grans 0.03 10^3/uL (0.0-0.06); HCT 33.5 % (40.0-50.0); HGB 10.8 g/dL (13.5-17.5); Immature Grans % 0.3 %; MCH 27.4 pg (27.0-33.0); MCHC 32.2 % (32.0-36.0); MCV 85 fL (80-95); MPV 8.9 fL (8.0-11.0); Platelet Count 309 10^3/uL (130-400); RBC 3.94 10^6/uL (4.36-5.78); RDW 19.9 % (11.8-14.1); RDW-SD 58.6 fL; WBC 9.02 10^3/uL (4.4-10.8)
[2024-09-15 10:24] LABS: ALT 37 U/L (16-63); AST 28 U/L (15-37); Albumin 2.9 g/dL (3.4-5.0); Alkaline Phosphatase 69 U/L (46-116); Anion Gap 7.2 mmol/L (3-11); BUN 12 mg/dL (7-18); Bilirubin, Total 0.6 mg/dL (0.2-1.0); CO2 27.8 mmol/L (21.0-32.0); Calcium 8.8 mg/dL (8.5-10.1); Chloride 105 mmol/L (98-107); Estimated GFR 96.69 (mL/min/1.73m2); Glucose 120 mg/dL (74-106); Potassium 4.2 mmol/L (3.5-5.1); Sodium 140 mmol/L (136-145); TSH 0.98 uIU/mL (0.36-3.74); Total Protein 6.5 g/dL (6.4-8.2)
[2024-09-22] MEDS: Normal Saline Flush 10 ML SYR IVP (09:36)
[2024-09-22 09:47] LABS: Abs Immature Grans 0.04 10^3/uL (0.0-0.06); HCT 33.8 % (40.0-50.0); HGB 10.8 g/dL (13.5-17.5); Immature Grans % 0.5 %; MCH 27.6 pg (27.0-33.0); MCHC 32.0 % (32.0-36.0); MCV 86 fL (80-95); MPV 8.8 fL (8.0-11.0); Platelet Count 309 10^3/uL (130-400); RBC 3.92 10^6/uL (4.36-5.78); RDW 21.1 % (11.8-14.1); RDW-SD 62.0 fL; WBC 8.78 10^3/uL (4.4-10.8)
[2024-09-22 10:22] LABS: ALT 31 U/L (16-63); AST 24 U/L (15-37); Albumin 3.0 g/dL (3.4-5.0); Alkaline Phosphatase 85 U/L (46-116); Anion Gap 5.2 mmol/L (3-11); BUN 16 mg/dL (7-18); Bilirubin, Total 0.8 mg/dL (0.2-1.0); CO2 28.8 mmol/L (21.0-32.0); Calcium 8.5 mg/dL (8.5-10.1); Chloride 105 mmol/L (98-107); Estimated GFR 92.87 (mL/min/1.73m2); Glucose 136 mg/dL (74-106); Potassium 4.1 mmol/L (3.5-5.1); Sodium 139 mmol/L (136-145); TSH 1.12 uIU/mL (0.36-3.74); Total Protein 6.6 g/dL (6.4-8.2)
[2024-10-06 10:04] LABS: Abs Immature Grans 0.05 10^3/uL (0.0-0.06); HCT 35.2 % (40.0-50.0); HGB 11.3 g/dL (13.5-17.5); Immature Grans % 0.5 %; MCH 27.8 pg (27.0-33.0); MCHC 32.1 % (32.0-36.0); MCV 87 fL (80-95); MPV 9.3 fL (8.0-11.0); Platelet Count 282 10^3/uL (130-400); RBC 4.06 10^6/uL (4.36-5.78); RDW 21.6 % (11.8-14.1); RDW-SD 67.1 fL; WBC 9.51 10^3/uL (4.4-10.8)
[2024-10-06] MEDS: Normal Saline Flush 10 ML SYR IVP (10:09)
[2024-10-06 10:42] LABS: Anisocytosis 1+
[2024-10-06 10:46] LABS: ALT 30 U/L (16-63); AST 24 U/L (15-37); Albumin 3.2 g/dL (3.4-5.0); Alkaline Phosphatase 77 U/L (46-116); Anion Gap 8.5 mmol/L (3-11); BUN 11 mg/dL (7-18); Bilirubin, Total 0.7 mg/dL (0.2-1.0); CO2 25.5 mmol/L (21.0-32.0); Calcium 9.1 mg/dL (8.5-10.1); Chloride 105 mmol/L (98-107); Estimated GFR 92.87 (mL/min/1.73m2); Glucose 143 mg/dL (74-106); Potassium 4.2 mmol/L (3.5-5.1); Sodium 139 mmol/L (136-145); TSH 1.11 uIU/mL (0.36-3.74); Total Protein 6.6 g/dL (6.4-8.2)
== END 2024-10-11 23:59 | disposition home or self-care (01) ==
LOC: INF 02:30
PROVIDERS: PCP Family Medicine; Visit Provider Internal Medicine
DX: Z79.899 Other long term (current) drug therapy (principal); R79.89 Other specified abnormal findings of blood chemistry; C79.10 Secondary malignant neoplasm of unspecified urinary organs; Z45.2 Encounter for adjustment and management of vascular access device
CPT/HCPCS: 36591; 80053; 84439; 84443; 85025

== ENCOUNTER 2024-11-03 10:30 | Outpatient (RCR) | payer MEDICARE, SELFPAY ==
[2024-10-13 10:15] LABS: Abs Immature Grans 0.05 10^3/uL (0.0-0.06); HCT 37.4 % (40.0-50.0); HGB 12.2 g/dL (13.5-17.5); Immature Grans % 0.5 %; MCH 28.4 pg (27.0-33.0); MCHC 32.6 % (32.0-36.0); MCV 87 fL (80-95); MPV 9.5 fL (8.0-11.0); Platelet Count 278 10^3/uL (130-400); RBC 4.30 10^6/uL (4.36-5.78); RDW 22.0 % (11.8-14.1); RDW-SD 67.7 fL; WBC 9.78 10^3/uL (4.4-10.8)
[2024-10-13 10:47] LABS: ALT 32 U/L (16-63); AST 27 U/L (15-37); Albumin 3.4 g/dL (3.4-5.0); Alkaline Phosphatase 78 U/L (46-116); Anion Gap 8.8 mmol/L (3-11); BUN 15 mg/dL (7-18); Bilirubin, Total 1.0 mg/dL (0.2-1.0); CO2 27.2 mmol/L (21.0-32.0); Calcium 9.1 mg/dL (8.5-10.1); Chloride 104 mmol/L (98-107); Estimated GFR 92.87 (mL/min/1.73m2); Glucose 170 mg/dL (74-106); Potassium 4.2 mmol/L (3.5-5.1); Sodium 140 mmol/L (136-145); TSH 0.90 uIU/mL (0.36-3.74); Total Protein 6.9 g/dL (6.4-8.2)
[2024-10-13] MEDS: Normal Saline Flush 10 ML SYR IVP (10:57)
[2024-10-27 12:43] LABS: Abs Immature Grans 0.03 10^3/uL (0.0-0.06); HCT 37.2 % (40.0-50.0); HGB 12.3 g/dL (13.5-17.5); Immature Grans % 0.3 %; MCH 28.9 pg (27.0-33.0); MCHC 33.1 % (32.0-36.0); MCV 88 fL (80-95); MPV 9.3 fL (8.0-11.0); Platelet Count 260 10^3/uL (130-400); RBC 4.25 10^6/uL (4.36-5.78); RDW 22.5 % (11.8-14.1); RDW-SD 70.9 fL; WBC 9.77 10^3/uL (4.4-10.8)
[2024-10-27] MEDS: Normal Saline Flush 10 ML SYR IVP (12:50)
[2024-10-27 13:13] LABS: ALT 39 U/L (16-63); AST 29 U/L (15-37); Albumin 3.3 g/dL (3.4-5.0); Alkaline Phosphatase 81 U/L (46-116); Anion Gap 9.9 mmol/L (3-11); BUN 11 mg/dL (7-18); Bilirubin, Total 0.8 mg/dL (0.2-1.0); CO2 26.1 mmol/L (21.0-32.0); Calcium 9.2 mg/dL (8.5-10.1); Chloride 105 mmol/L (98-107); Estimated GFR 101.30 (mL/min/1.73m2); Glucose 106 mg/dL (74-106); Potassium 4.4 mmol/L (3.5-5.1); Sodium 141 mmol/L (136-145); TSH 0.90 uIU/mL (0.36-3.74); Total Protein 6.8 g/dL (6.4-8.2)
[2024-11-03 10:49] LABS: Abs Immature Grans 0.03 10^3/uL (0.0-0.06); HCT 37.1 % (40.0-50.0); HGB 12.2 g/dL (13.5-17.5); Immature Grans % 0.3 %; MCH 28.8 pg (27.0-33.0); MCHC 32.9 % (32.0-36.0); MCV 88 fL (80-95); MPV 9.2 fL (8.0-11.0); Platelet Count 255 10^3/uL (130-400); RBC 4.23 10^6/uL (4.36-5.78); RDW 22.0 % (11.8-14.1); RDW-SD 69.7 fL; WBC 9.48 10^3/uL (4.4-10.8)
[2024-11-03 11:18] LABS: Acanthocytes 1+; Anisocytosis 2+
[2024-11-03 11:19] LABS: Howell-Jolly Bodies Present; Microcytosis 2+; Ovalocytes 2+; Poikilocytes 2+
[2024-11-03 11:50] LABS: ALT 35 U/L (16-63); AST 26 U/L (15-37); Albumin 3.3 g/dL (3.4-5.0); Alkaline Phosphatase 83 U/L (46-116); Anion Gap 9.4 mmol/L (3-11); BUN 14 mg/dL (7-18); Bilirubin, Total 1.1 mg/dL (0.2-1.0); CO2 26.6 mmol/L (21.0-32.0); Calcium 9.0 mg/dL (8.5-10.1); Chloride 104 mmol/L (98-107); Estimated GFR 92.87 (mL/min/1.73m2); Glucose 152 mg/dL (74-106); Potassium 4.2 mmol/L (3.5-5.1); Sodium 140 mmol/L (136-145); TSH 0.90 uIU/mL (0.36-3.74); Total Protein 6.7 g/dL (6.4-8.2)
[2024-11-03] MEDS: Normal Saline Flush 10 ML SYR IVP (12:51)
== END 2024-11-10 23:59 | disposition home or self-care (01) ==
LOC: INF 10:30
PROVIDERS: PCP Family Medicine; Visit Provider Internal Medicine
DX: C79.10 Secondary malignant neoplasm of unspecified urinary organs (principal); R79.89 Other specified abnormal findings of blood chemistry; Z79.899 Other long term (current) drug therapy; Z45.2 Encounter for adjustment and management of vascular access device
CPT/HCPCS: 36591; 80053; 84439; 84443; 85025

== ENCOUNTER 2024-12-08 01:52 | Outpatient (RCR) | payer MEDICARE, SELFPAY ==
[2024-11-17 09:24] LABS: Abs Immature Grans 0.04 10^3/uL (0.0-0.06); HCT 36.8 % (40.0-50.0); HGB 12.1 g/dL (13.5-17.5); Immature Grans % 0.4 %; MCH 29.2 pg (27.0-33.0); MCHC 32.9 % (32.0-36.0); MCV 89 fL (80-95); MPV 9.3 fL (8.0-11.0); Platelet Count 259 10^3/uL (130-400); RBC 4.15 10^6/uL (4.36-5.78); RDW 22.4 % (11.8-14.1); RDW-SD 72.4 fL; WBC 9.25 10^3/uL (4.4-10.8)
[2024-11-17 09:50] LABS: Acanthocytes 1+; Anisocytosis 2+; Microcytosis 1+; Ovalocytes 2+
[2024-11-17 09:55] LABS: ALT 32 U/L (16-63); AST 22 U/L (15-37); Albumin 3.2 g/dL (3.4-5.0); Alkaline Phosphatase 87 U/L (46-116); Anion Gap 7.2 mmol/L (3-11); BUN 13 mg/dL (7-18); Bilirubin, Total 0.6 mg/dL (0.2-1.0); CO2 28.8 mmol/L (21.0-32.0); Calcium 8.5 mg/dL (8.5-10.1); Chloride 105 mmol/L (98-107); Glucose 129 mg/dL (74-106); Potassium 3.8 mmol/L (3.5-5.1); Sodium 141 mmol/L (136-145); Total Protein 6.4 g/dL (6.4-8.2)
[2024-11-17] MEDS: Normal Saline Flush 10 ML SYR IVP (10:02)
[2024-11-17 10:44] LABS: TSH 1.25 uIU/mL (0.36-3.74)
[2024-11-24] MEDS: Normal Saline Flush 10 ML SYR IVP (11:37)
[2024-11-24 11:45] LABS: Abs Immature Grans 0.02 10^3/uL (0.0-0.06); HCT 38.1 % (40.0-50.0); HGB 12.7 g/dL (13.5-17.5); Immature Grans % 0.2 %; MCH 29.5 pg (27.0-33.0); MCHC 33.3 % (32.0-36.0); MCV 89 fL (80-95); MPV 9.0 fL (8.0-11.0); Platelet Count 266 10^3/uL (130-400); RBC 4.30 10^6/uL (4.36-5.78); RDW 21.5 % (11.8-14.1); RDW-SD 69.5 fL; WBC 9.31 10^3/uL (4.4-10.8)
[2024-11-24 11:59] LABS: Anisocytosis 2+; Microcytosis 1+; Ovalocytes 2+
[2024-11-24 12:19] LABS: ALT 31 U/L (16-63); AST 23 U/L (15-37); Albumin 3.2 g/dL (3.4-5.0); Alkaline Phosphatase 75 U/L (46-116); Anion Gap 9.0 mmol/L (3-11); BUN 15 mg/dL (7-18); Bilirubin, Total 0.8 mg/dL (0.2-1.0); CO2 29.0 mmol/L (21.0-32.0); Calcium 8.9 mg/dL (8.5-10.1); Chloride 104 mmol/L (98-107); Glucose 106 mg/dL (74-106); Potassium 4.1 mmol/L (3.5-5.1); Sodium 142 mmol/L (136-145); TSH 1.29 uIU/mL (0.36-3.74); Total Protein 6.6 g/dL (6.4-8.2)
[2024-12-08] MEDS: Normal Saline Flush 10 ML SYR IVP (09:11)
[2024-12-08 09:15] LABS: Abs Immature Grans 0.04 10^3/uL (0.0-0.06); HCT 38.6 % (40.0-50.0); HGB 12.8 g/dL (13.5-17.5); Immature Grans % 0.4 %; MCH 29.9 pg (27.0-33.0); MCHC 33.2 % (32.0-36.0); MCV 90 fL (80-95); MPV 9.1 fL (8.0-11.0); Platelet Count 250 10^3/uL (130-400); RBC 4.28 10^6/uL (4.36-5.78); RDW 20.6 % (11.8-14.1); RDW-SD 67.9 fL; WBC 9.08 10^3/uL (4.4-10.8)
[2024-12-08 09:40] LABS: Anisocytosis 2+; Microcytosis 1+; Ovalocytes 2+
[2024-12-08 10:06] LABS: ALT 33 U/L (16-63); AST 24 U/L (15-37); Albumin 3.2 g/dL (3.4-5.0); Alkaline Phosphatase 81 U/L (46-116); Anion Gap 9.8 mmol/L (3-11); BUN 12 mg/dL (7-18); Bilirubin, Total 0.7 mg/dL (0.2-1.0); CO2 26.2 mmol/L (21.0-32.0); Calcium 8.6 mg/dL (8.5-10.1); Chloride 105 mmol/L (98-107); Glucose 110 mg/dL (74-106); Potassium 4.0 mmol/L (3.5-5.1); Sodium 141 mmol/L (136-145); TSH 1.23 uIU/mL (0.36-3.74); Total Protein 6.7 g/dL (6.4-8.2)
== END 2024-12-11 23:59 | disposition home or self-care (01) ==
LOC: INF 01:52
PROVIDERS: PCP Family Medicine; Visit Provider Internal Medicine
DX: C79.10 Secondary malignant neoplasm of unspecified urinary organs (principal); Z79.899 Other long term (current) drug therapy; Z45.2 Encounter for adjustment and management of vascular access device
CPT/HCPCS: 36591; 80053; 84439; 84443; 85025